=== PATIENT | female | born 1935 | race Caucasian/White ===

== ENCOUNTER 2017-01-27 12:08 | Inpatient (IN) | payer OTHER ==
[2017-01-27] MEDS ORDERED: LABETALOL HCL 5 MG/1 ML (100MG/20 ML VIAL) IVPUSH ONE ×2 (12:47→13:47)
[2017-01-27] MEDS ORDERED: LABETALOL HCL 5 MG/1 ML (100MG/20 ML VIAL) ONE (13:01)
--- NOTE | 2017-01-27 13:06 | PDOC ---
History of Present Illness - General Chief Complaint: Hives Stated Complaint: HIVES ON UPPER BODY X 1 WEEK Time Seen by Provider: 01/27/17 12:18 - History of Present Illness Initial Comments: 01/27/17 13:01 81-year-old female with a past medical history of an aortic valve replacement and mitral valve replacement, bovine, hyperlipidemia, hypertension, and COPD She also has a history of atrial fibrillation, and her amiodarone was recently stopped Patient is complaining of one-week of intermittent hives and itchiness of her upper body She states that none of her medications are new, however she saw Dr. Argueta last week, and her blood pressure was high, and her enalapril dose was increased a week ago She denies any new products She is using a new laundry detergent She went to Dr. Argueta's office today for a blood pressure recheck, and to talk to him further about these hives, when she was noted to have a very high blood pressure and sent to the emergency department She states that she did take her increase dose of enalapril today, and has been taking it as directed She denies any headache, chest pain, palpitations, or edema She does not have a blood pressure cuff at home to follow her blood pressure at home She was asymptomatic, and otherwise unaware that her blood pressure was very high She denies any other complaints at this time, and the remainder of the review of systems is negative Past History - Past Medical History Allergies/Adverse Reactions: Allergies Allergy/AdvReac Type Severity Reaction Status Date / Time nystatin Allergy Severe Swelling Verified 01/27/17 12:10 morphine AdvReac Severe Vomiting Verified 01/27/17 12:10 amiodarone AdvReac Intermediate Thyroid Verified 01/27/17 12:10 and eye problems amlodipine AdvReac Intermediate Leg edema Verified 01/27/17 12:10 Home Medications: Ambulatory Orders Albuterol Sulfate Inhaler - [Ventolin HFA Inhaler -] 1 - 2 inh PO ASDIR Cholecalciferol (Vitamin D3) [Vitamin D3] 2,000 unit PO ASDIR 03/30/16 Atorvastatin Ca [Lipitor] 40 mg PO HS 01/27/17 Budesonide/Formeterol Fumarate [SYMBICORT 160/4.5mcg -] 1 inh PO BID 01/27/17 Enalapril Maleate 10 mg PO DAILY tablet 01/27/17 Acetaminophen [Tylenol .Regular Strength -] 650 mg PO Q6H PRN #0 tablet Anemia: No Asthma: Yes Cancer: No Cardiac Disorders: Yes (AFIB) CVA: No COPD: Yes CHF: No (?) Dementia: No Diabetes: No GI Disorders: Yes (HX OF DIVERTICULITIS) Disorders: No HTN: Yes Hypercholesterolemia: Yes Liver Disease: No Seizures: No Thyroid Disease: Yes (HYPO) - Surgical History Abdominal Surgery: Yes Appendectomy: Yes Cardiac Surgery: Yes (2 VALVE REPLACEMENT) Cholecystectomy: No Lung Surgery: No Neurologic Surgery: No Orthopedic Surgery: Yes (RT ARTHROSCOPIC SURGERY) - Psycho/Social/Smoking Cessation Hx Anxiety: No Suicidal Ideation: No Smoking Status: No Smoking History: Former smoker Years of Tobacco Use: 0 Have you smoked in the past 12 months: No Number of Cigarettes Smoked Daily: 0 If you are a former smoker, when did you quit?: 1985 Information on smoking cessation initiated: No Hx Alcohol Use: No Drug/Substance Use Hx: No Substance Use Type: None Hx Substance Use Treatment: No *Physical Exam - Vital Signs Last Vital Signs Temp Pulse Resp BP Pulse Ox 98.3 F 57 L 18 211/80 97 01/27/17 12:09 01/27/17 12:09 01/27/17 12:01/27/17 12:09 01/27/17 12:09 - Physical Exam Comments: 01/27/17 13:04 Physical exam Last Vital Signs Temp Pulse Resp BP Pulse Ox 98.3 F 57 L 18 211/80 97 01/27/17 12:09 01/27/17 12:09 01/27/17 12:09 01/27/17 12:09 01/27/17 12:09 GENERAL: The patient is awake, alert, and fully oriented, and in no apparent distress. HEAD: Normal with no signs of trauma. EYES: sclera anicteric, conjunctiva are normal. ENT: oropharynx clear without exudates. Moist mucous membranes. NECK: Normal range of motion, supple LUNGS: Mildly prolonged expiratory phase, and occasional crackles No wheezes, and otherwise clear Trace bibasilar rales are noted HEART: Regular rate and rhythm, with prosthetic mitral and aortic valve murmurs ABDOMEN: Soft, nontender, normoactive bowel sounds. No guarding, no rebound. No masses appreciated. EXTREMITIES: Normal range of motion, no edema. No clubbing or cyanosis. No cords, erythema, or tenderness. NEUROLOGICAL: Cranial nerves II through XII grossly intact. Normal speech, motor 5 of 5 and equal in the upper lower extremities bilaterally, alert and oriented 3, grossly nonfocal neurologic exam PSYCH: Normal mood, normal affect. SKIN: Warm, Dry, no hives seen at this time ED Treatment Course - LABORATORY CBC & Chemistry Diagram: 01/28/17 07:35 01/28/17 07:35 - RADIOLOGY Radiology Studies Ordered: Category Date Time Status CHEST X-RAY PORTABLE* [RAD] Stat Radiology 01/27/17 12:46 Ordered Medical Decision Making - Medical Decision Making 01/27/17 13:10 EKG Sinus bradycardia 56, 0 axis Borderline first degree AV block Incomplete right bundle branch block QTC [address]-T waves When compared to the EKG of 05/12/16 The incomplete right bundle branch block was present on the prior EKG The borderline first degree AV block was also present on the old EKG Today's EKG is essentially unchanged from the prior EKG 81-year-old female whose blood pressure has been running high recently, and her enalapril was recently doubled by her primary care physician She's been having some transient hives off and on, with no new medications, and no new skin care products, although she states that she recently has changed her laundry detergent she actually came to see Dr. Shi today in the office to address the hives, but was found to have very high blood pressure and sent to the emergency department (no hives are present at this time) She denies any symptoms related to her high blood pressure at this time 01/27/17 14:34 Laboratory Results - last 24 hr 01/27/17 01/27/17 01/27/17 12:40 12:40 12:40 WBC 6.4 RBC 4.62 Hgb 13.1 Hct 39.9 MCV 86.3 MCHC 32.9 RDW 14.1 Plt Count 213 MPV 9.5 INR 2.96 H Sodium 140 Potassium 3.9 Chloride 104 Carbon Dioxide 27 Anion Gap 9 BUN 23 H Creatinine 1.3 Creat Clearance w eGFR 39.31 Random Glucose 82 Calcium 8.6 Magnesium 1.9 Total Bilirubin 0.6 AST 27 ALT 19 D Alkaline Phosphatase 145 H Total Protein 6.8 Albumin 3.9 01/27/17 14:34 Chest x-ray-no acute process seen, NO new change from prior 01/27/17 15:15 ck 89, trop 0.04 Vital Signs - 24 hr 01/27/17 01/27/17 01/27/17 12:09 13:00 13:12 Temperature 98.3 F Pulse Rate 57 L Pulse Rate [ 57 L 56 L Apical] Respiratory 18 16 18 Rate Blood Pressure 211/80 Blood Pressure 226/78 220/67 [Arm] O2 Sat by Pulse 97 97 98 Oximetry (%) 01/27/17 01/27/17 01/27/17 13:18 13:49 13:57 Temperature Pulse Rate Pulse Rate [ 57 L 58 L 57 L Apical] Respiratory 18 Rate Blood Pressure Blood Pressure 190/65 196/66 170/57 [Arm] O2 Sat by Pulse 97 Oximetry (%) 01/27/17 14:16 Temperature Pulse Rate Pulse Rate [ 57 L Apical] Respiratory 18 Rate Blood Pressure Blood Pressure 154/58 [Arm] O2 Sat by Pulse Oximetry (%) 01/27/17 15:32 Case and all results discussed with hospitalist-Will place in observation BNP still pending at the time of this admission-was sent to lab at [facility] Impression-hypertension out of control,hives of uncertain etiology BP decreasing with meds given in ED *DC/Admit/Observation/Transfer Diagnosis at time of Disposition: Poorly-controlled hypertension - Discharge Dispostion Condition at time of disposition: Fair Admit: Yes
[2017-01-27 13:27] LABS: MCH 28.4 pg (25.7-33.7); MCHC 32.9 g/dl (32.0-36.0); MEAN CELL VOLUME 86.3 fl (80-96); MEAN PLT VOLUME 9.5 fl (7.5-11.1); PLATELET COUNT 213 K/MM3 (134-434); RDW 14.1 % (11.6-15.6); WHITE BLOOD COUNT 6.4 K/mm3 (4.0-10.8)
[2017-01-27 14:18] LABS: ALBUMIN 3.9 g/dl (3.5-5.0); ALK PHOS 145 U/L (32-92); ANION GAP 9 (8-16); BILIRUBIN,TOTAL 0.6 mg/dl (0.2-1.0); CALCIUM 8.6 mg/dl (8.4-10.2); CO2 27 mmol/L (22-28); CREATININE 1.3 mg/dl (0.6-1.3); GLUCOSE,RANDOM 82 mg/dl (74-106); MAGNESIUM 1.9 mg/dL (1.8-2.4); SGOT/AST 27 U/L (10-42); SGPT/ALT 19 U/L (10-40); TOT PROT 6.8 g/dl (6.4-8.3)
[2017-01-27 14:25] LABS: INR 2.96 (0.82-1.09); PROTHROMBIN TIME (PATIENT) 32.4 SEC (10.2-13.0)
[2017-01-27 14:55] LABS: TROPONIN I (DFP) 0.04 ng/ml (0.03-0.50)
--- NOTE | 2017-01-27 15:08 | EKG ---
Test Reason : Blood Pressure : / mmHG Vent. Rate : 056 BPM Atrial Rate : 056 BPM P-R Int : 200 ms QRS Dur : 124 ms QT Int : 506 ms P-R-T Axes : 048 001 033 degrees QTc Int : 488 ms SINUS BRADYCARDIA RSR' OR QR PATTERN IN V1 SUGGESTS RIGHT VENTRICULAR CONDUCTION DELAY WHEN COMPARED WITH ECG OF 12-MAY-2016 09:06, PREMATURE ATRIAL COMPLEXES ARE NO LONGER PRESENT Confirmed by MD FIOR, SHARIF ([id number]) on 01/27/2017 3:07:41 PM Referred By: ELIZABETH ADAMS Confirmed By:SHARIF CHILDRESS MD
[2017-01-27] MEDS ORDERED: hydrALAZINE HCL 20 MG/ML VIAL IVPUSH ONE ×2 (17:50→22:11)
[2017-01-27] MEDS ORDERED: ONDANSETRON 4 MG/2 ML VIAL IVPB PRN (17:54)
[2017-01-27] MEDS ORDERED: ACETAMINOPHEN 325 MG TABLET (FP) PO PRN (17:54)
[2017-01-27] MEDS ORDERED: ALBUTEROL SO4 6.7 GM HFA INHALER IH PRN (18:19)
[2017-01-27 19:15] VITALS: BMI 12.4
[2017-01-27] MEDS: ENALAPRIL MALEATE 10 MG TABLET (FP) PO SCH (20:18)
--- NOTE | 2017-01-27 20:32 | HP ---
CHIEF COMPLAINT: PCP: HISTORY OF PRESENT ILLNESS: This is a 81 y/o female with a past medical history of Afib (on Coumadin), Aortic Valve Replacement and Mitral Valve Replacement (Bovine x2), HTN, HLD, Hypothyroid, Asthma, COPD, Diverticulitis. Who presents to the ED from her PMD' s office with elevated blood pressure. Patient reports seeing her PMD for hives to her upper body, there are blood pressure was noted to be elevated. She states that she had a recent change to her blood pressure regimen, but is compliant. Patient denies blurred vision, dizziness, SOB, CP. Patient denies, fever, chills, N/V/D, constipation. ER course was notable for: (1) On arrival BP 214/77- hydralazine given in ED- BP 130/50 (2) EKG- SB first degree block, incomplete RBBB (3) Chest Xray- neg acute pathology Recent Travel: None PAST MEDICAL HISTORY: See HPI PAST SURGICAL HISTORY: Bovine Valve Replacement x2 Appendectomy Abdominal sx Rt- Shoulder Arthroscopic Social History: Smoking: Former Alcohol: None Drugs: None Lives alone Family History: Allergies nystatin Allergy (Severe, Verified 01/27/17 12:10) Swelling morphine Adverse Reaction (Severe, Verified 01/27/17 12:10) Vomiting amiodarone Adverse Reaction (Intermediate, Verified 01/27/17 12:10) Thyroid and eye problems amlodipine Adverse Reaction (Intermediate, Verified 01/27/17 12:10) Leg edema HOME MEDICATIONS: Home Medications Medication Instructions Recorded Albuterol Sulfate Inhaler - 1 - 2 inh PO ASDIR 03/30/16 [Ventolin HFA Inhaler -] Cholecalciferol (Vitamin D3) 2,000 unit PO ASDIR 03/30/16 [Vitamin D3] Atorvastatin Ca [Lipitor] 40 mg PO HS 01/27/17 Budesonide/Formeterol Fumarate 1 inh PO BID 01/27/17 [SYMBICORT 160/4.5mcg -] Enalapril Maleate 10 mg PO DAILY tablet 01/27/17 REVIEW OF SYSTEMS CONSTITUTIONAL: Absent: fever, chills, diaphoresis, generalized weakness, malaise, loss of appetite, weight change HEENT: Absent: rhinorrhea, nasal congestion, throat pain, throat swelling, difficulty swallowing, mouth swelling, ear pain, eye pain, visual changes CARDIOVASCULAR: Absent: chest pain, syncope, palpitations, irregular heart rate, lightheadedness , peripheral edema RESPIRATORY: Absent: cough, shortness of breath, dyspnea with exertion, orthopnea, wheezing, stridor, hemoptysis GASTROINTESTINAL: Absent: abdominal pain, abdominal distension, nausea, vomiting, diarrhea, constipation, melena, hematochezia GENITOURINARY: Absent: dysuria, frequency, urgency, hesitancy, hematuria, flank pain, genital pain MUSCULOSKELETAL: Absent: myalgia, arthralgia, joint swelling, back pain, neck pain SKIN: hives, itching Absent: rash, pallor HEMATOLOGIC/IMMUNOLOGIC: Absent: easy bleeding, easy bruising, lymphadenopathy, frequent infections ENDOCRINE: Absent: unexplained weight gain, unexplained weight loss, heat intolerance, cold intolerance NEUROLOGIC: headache Absent: focal weakness or paresthesias, dizziness, unsteady gait, seizure, mental status changes, bladder or bowel incontinence PSYCHIATRIC: Absent: anxiety, depression, suicidal or homicidal ideation, hallucinations. PHYSICAL EXAMINATION Vital Signs - 24 hr 01/27/17 01/27/17 01/27/17 18:00 19:05 19:27 Temperature 98.1 F Pulse Rate 56 L 59 L 58 L Respiratory 16 18 16 Rate Blood Pressure 214/77 130/50 130/55 O2 Sat by Pulse 97 96 Oximetry (%) 01/27/17 20:12 Temperature Pulse Rate Respiratory 16 Rate Blood Pressure O2 Sat by Pulse 96 Oximetry (%) GENERAL: Awake, alert, and fully oriented, in no acute distress. HEAD: Normal with no signs of trauma. EYES: Pupils equal, round and reactive to light, extraocular movements intact, sclera anicteric, conjunctiva clear. No lid lag. EARS, NOSE, THROAT: Ears normal, nares patent, oropharynx clear without exudates. Moist mucous membranes. NECK: Normal range of motion, supple without lymphadenopathy, JVD, or masses. LUNGS: Breath sounds equal, clear to auscultation bilaterally. No wheezes, and no crackles. No accessory muscle use. HEART: Irregular rate and rhythm, 2/6 systolic murmur. Normal S1 and S2, rub or gallop. ABDOMEN: Soft, nontender, not distended, normoactive bowel sounds, no guarding, no rebound, no masses. No hepatomegaly or splenomegaly. MUSCULOSKELETAL: Normal range of motion at all joints. No bony deformities or tenderness. No CVA tenderness. UPPER EXTREMITIES: 2+ pulses, warm, well-perfused. No cyanosis. No clubbing. No peripheral edema. LOWER EXTREMITIES: 2+ pulses, warm, well-perfused. No calf tenderness. No peripheral edema. NEUROLOGICAL: Cranial nerves II-XII intact. Normal speech. Gait not observed. PSYCHIATRIC: Cooperative. Good eye contact. Appropriate mood and affect. SKIN: Warm, dry, normal turgor, no rashes or lesions noted, normal capillary refill. Laboratory Results - last 24 hr 01/27/17 01/27/17 01/27/17 12:40 12:40 12:40 WBC 6.4 RBC 4.62 Hgb 13.1 Hct 39.9 MCV 86.3 MCHC 32.9 RDW 14.1 Plt Count 213 MPV 9.5 INR Sodium 140 Potassium 3.9 Chloride 104 Carbon Dioxide 27 Anion Gap 9 BUN 23 H Creatinine 1.3 Creat Clearance w eGFR 39.31 Random Glucose 82 Calcium 8.6 Magnesium 1.9 Total Bilirubin 0.6 AST 27 ALT 19 D Alkaline Phosphatase 145 H Creatine Kinase 89 Troponin I 0.04 B-Natriuretic Peptide 1609.19 H Total Protein 6.8 Albumin 3.9 01/27/17 12:40 WBC RBC Hgb Hct MCV MCHC RDW Plt Count MPV INR 2.96 H Sodium Potassium Chloride Carbon Dioxide Anion Gap BUN Creatinine Creat Clearance w eGFR Random Glucose Calcium Magnesium Total Bilirubin AST ALT Alkaline Phosphatase Creatine Kinase Troponin I B-Natriuretic Peptide Total Protein Albumin ASSESSMENT/PLAN: This is a 81 y/o female with a PMHx of: HTN, HLD, Afib (on Coumadin), Asthma, COPD, Diverticulitis. Placed on Tele Observation for Hypertensive Urgency for further evaluation of their emergent condition. 1. Hypertensive Urgency- Tele monitoring, BP mgmt, Serial Enzymes, Cardiology Consult, Renal US 2. HTN- Monitor BP continue home meds 3. Afib- Tele monitoring, EKG reviewed, Continue med, 4. Asthma/COPD- Duoneb prn, continue home med, CXR reviewed FEN - PO Fluids - Replete lytes prn - Low Na Diet Problem List - Problem (1) Hypertensive urgency Assessment/Plan: - Tele monitoring - Patient is currently asymptomatic- denies DOZIER, CP, blurred vision - Labetolol, Hydralazine given in ED - Appreciate Cardiology consult - Continue Enalapril - Hydralazine prn - Ekg- Afib rate control - Chest Xray- neg acute pathology - Serial Enzymes neg x1, continue to trend - Renal US Code(s): I16.0 - HYPERTENSIVE URGENCY (2) A-fib Assessment/Plan: - Rate Control - EKG- reviewed - Continue Coumadin - Series INR Code(s): I48.91 - UNSPECIFIED ATRIAL FIBRILLATION (3) Asthma Assessment/Plan: - Controlled - Continue home meds - Duoneb prn SOB Code(s): J45.909 - UNSPECIFIED ASTHMA, UNCOMPLICATED (4) COPD (chronic obstructive pulmonary disease) Assessment/Plan: - Continue home med - O2 - Pulse Ox Code(s): J44.9 - CHRONIC OBSTRUCTIVE PULMONARY DISEASE, UNSPECIFIED (5) HLD (hyperlipidemia) Assessment/Plan: - Continue home med Code(s): E78.5 - HYPERLIPIDEMIA, UNSPECIFIED (6) Hypothyroidism Code(s): E03.9 - HYPOTHYROIDISM, UNSPECIFIED (7) DVT prophylaxis Code(s): FZT9268 - Visit type - Emergency Visit Emergency Visit: Yes ED Registration Date: 01/27/17 Care time: The patient presented to the Emergency Department on the above date and was hospitalized for further evaluation of their emergent condition. - New Patient This patient is new to me today: Yes Date on this admission: 01/27/17 - Critical Care Critical Care patient: No
[2017-01-27] MEDS: BUDESONIDE/FORMETEROL FUMARATE 160/4.5 mcg INHALER IH SCH ×2 (22:22→23:05)
[2017-01-27] MEDS: ATORVASTATIN CA 40 MG TABLET (FP) PO SCH (22:22)
[2017-01-27] MEDS ORDERED: WARFARIN NA 1 MG TABLET (FP) PO ONE (22:30)
[2017-01-27] MEDS ORDERED: ONDANSETRON 4 MG/2 ML VIAL IVPUSH ONE (22:58)
[2017-01-27] MEDS ORDERED: diphenhydrAMINE HCL 25 MG CAPSULE (FP) PO ONE (22:58)
[2017-01-28] MEDS: LEVOTHYROXINE NA 50 MCG TABLET (FP) PO SCH (06:21)
[2017-01-28 08:23] LABS: BASOPHIL 0.9 % (0-2.0); EOSINOPHIL 0.2 % (0-4.5); MCH 28.4 pg (25.7-33.7); MCHC 32.8 g/dl (32.0-36.0); MEAN CELL VOLUME 86.5 fl (80-96); MEAN PLT VOLUME 9.1 fl (7.5-11.1); PLATELET COUNT 224 K/MM3 (134-434); RDW 14.3 % (11.6-15.6); WHITE BLOOD COUNT 8.6 K/mm3 (4.0-10.8)
[2017-01-28 08:48] LABS: ALBUMIN 3.6 g/dl (3.5-5.0); ALK PHOS 132 U/L (32-92); ANION GAP 9 (8-16); BILIRUBIN,TOTAL 0.5 mg/dl (0.2-1.0); CALCIUM 8.7 mg/dl (8.4-10.2); CO2 24 mmol/L (22-28); CREATININE 1.4 mg/dl (0.6-1.3); GLUCOSE,RANDOM 106 mg/dl (74-106); MAGNESIUM 1.9 mg/dL (1.8-2.4); SGOT/AST 22 U/L (10-42); SGPT/ALT 18 U/L (10-40); TOT PROT 6.4 g/dl (6.4-8.3)
[2017-01-28 08:57] LABS: CHOLESTEROL 161 mg/dl
--- NOTE | 2017-01-28 09:23 | CON.CARD ---
Consult Consult Specialty:: Cardiology Referred by:: Obey Shi MD Reason for Consultation:: Hypertensive urgency - History of Present Illness Chief Complaint: Rash History of Present Illness: This is a 81 y/o female with a past medical history of Afib (on Coumadin), Aortic Valve Replacement and Mitral Valve Replacement (Bovine x2), HTN, HLD, Hypothyroid, Asthma, COPD, Diverticulitis referred to the ED from her PMD's office with elevated blood pressure. Patient reports seeing her PMD for hives to her upper body, there are blood pressure was noted to be elevated. She reports medication, but not diet compliant, denies NSAID use. Patient denies blurred vision, dizziness, SOB, CP, near or true syncope, orthopnea, PND, LE edema or change in exercise capacity. ER course was notable for: (1) On arrival BP 214/77- hydralazine given in ED- BP 130/50 (2) EKG- SB first degree block, incomplete RBBB (3) Chest Xray- neg acute pathology PAST MEDICAL HISTORY: See HPI PAST SURGICAL HISTORY: Bovine Valve Replacement x2 Appendectomy Abdominal sx Rt- Shoulder Arthroscopic Social History: Smoking: Former Alcohol: None Drugs: None Lives alone Family History: Allergies nystatin Allergy (Severe, Verified 01/27/17 12:10) Swelling morphine Adverse Reaction (Severe, Verified 01/27/17 12:10) Vomiting amiodarone Adverse Reaction (Intermediate, Verified 01/27/17 12:10) Thyroid and eye problems amlodipine Adverse Reaction (Intermediate, Verified 01/27/17 12:10) Leg edema - History Source History Provided By: Patient Limitations to Obtaining History: No Limitations - Past Medical History Cardio/Vascular: Yes: AFIB, HTN, Hyperlipdemia Pulmonary: Yes: COPD Gastrointestinal: Yes: Diverticulitis Endocrine: Yes: Hypothyroidism - Past Surgical History Past Surgical History: Yes: Appendectomy, Valve Replacement - Alcohol/Substance Use Hx Alcohol Use: No - Smoking History Smoking history: Former smoker Have you smoked in the past 12 months: No Aproximately how many cigarettes per day: 0 If you are a former smoker, when did you quit?: 1985 Home Medications - Allergies Allergies/Adverse Reactions: Allergies Allergy/AdvReac Type Severity Reaction Status Date / Time nystatin Allergy Severe Swelling Verified 01/27/17 12:10 morphine AdvReac Severe Vomiting Verified 01/27/17 12:10 amiodarone AdvReac Intermediate Thyroid Verified 01/27/17 12:10 and eye problems amlodipine AdvReac Intermediate Leg edema Verified 01/27/17 12:10 - Home Medications Home Medications: Ambulatory Orders Albuterol Sulfate Inhaler - [Ventolin HFA Inhaler -] 1 - 2 inh PO ASDIR Cholecalciferol (Vitamin D3) [Vitamin D3] 2,000 unit PO ASDIR 03/30/16 Atorvastatin Ca [Lipitor] 40 mg PO HS 01/27/17 Budesonide/Formeterol Fumarate [SYMBICORT 160/4.5mcg -] 1 inh PO BID 01/27/17 Enalapril Maleate 10 mg PO DAILY tablet 01/27/17 Review of Systems - Review of Systems Integumentary: reports: Rash Vital Signs: Vital Signs Temperature 99.2 F 01/28/17 06:17 Pulse Rate 63 01/28/17 08:03 Respiratory Rate 18 01/28/17 08:03 Blood Pressure 136/46 01/28/17 08:03 O2 Sat by Pulse Oximetry (%) 93 L 01/28/17 06:17 Constitutional: Yes: No Distress, Calm Neck: Yes: Supple Respiratory: Yes: Regular, CTA Bilaterally Gastrointestinal: Yes: Normal Bowel Sounds, Soft Cardiovascular: Yes: Regular Rate and Rhythm JVD: No Carotid Bruit: No Heart Sounds: Yes: S1, S2 Murmur: Yes: Systolic Murmur, Grade 2 Edema: No - Other Data Labs, Other Data: CBC, BMP 01/28/17 07:35 01/28/17 07:35 INR, PTT INR 2.96 (0.82-1.09) H 01/27/17 12:40 SB @ 56 1st degree AV block similar to previous 05/12/2016 Imaging - Results Chest X-ray: Report Reviewed (NAD) Assessment/Plan 11/2016 Echo: Normal LV size and fxn with severe LVH, mod LAE, bioAVR and MVR noted, mod TR, mild-mod IN, RVSP 45 mmHg 1. Hypertensive urgency improved 2. Rheumatic heart disease s/p bioAVR, bioMVR 3. Paroxysmal Afib on coumadin with therapeutic INR 4. Mild COPD 5. Hypothyroidism 6. CKD P:1. Resume Toprol XL 25 qd as you are, continue vasotec 10 qd, Lipitor 40 qhs 2. Continue coumadin per INR 3. If BP remains adequately controlled, may d/c home with f/u with Drs. Myrick and Yuridia 4. Thank you for consultative opportunity
[2017-01-28] MEDS ORDERED: PT OWN MED DRAWER 7, Y5N ONE (09:52)
[2017-01-28] MEDS: ENALAPRIL MALEATE 10 MG TABLET (FP) PO SCH ×2 (09:58→22:10)
[2017-01-28] MEDS: BUDESONIDE/FORMETEROL FUMARATE 160/4.5 mcg INHALER IH SCH ×3 (10:00→21:13)
[2017-01-28] MEDS ORDERED: METOPROLOL SUCCINATE 25 MG TAB.SR.24H (FP) PO SCH (10:00)
--- NOTE | 2017-01-28 11:10 | DS ---
Physical Exam: SUBJECTIVE: Patient seen and examined, pt reports feeling well, pt is denies any chest pain OBJECTIVE: Vital Signs Period Temp Pulse Resp BP Sys/Vasquez Pulse Ox Last 24 Hr 97.9 F-99.2 F 56-70 16-19 115-214/38-87 93-97 PHYSICAL EXAM GENERAL: The patient is awake, alert, and fully oriented, in no acute distress. HEAD: Normal with no signs of trauma. EYES: PERRL, extraocular movements intact, sclera anicteric, conjunctiva clear. ENT: Ears normal, nares patent, oropharynx clear without exudates, moist mucous membranes. NECK: Trachea midline, full range of motion, supple. LUNGS: Breath sounds equal, clear to auscultation bilaterally, no wheezes, no crackles, no accessory muscle use. HEART: Regular rate and rhythm, S1, S2 without murmur, rub or gallop. ABDOMEN: Soft, nontender, nondistended, normoactive bowel sounds, no guarding, no rebound, no hepatosplenomegaly, no masses. EXTREMITIES: 2+ pulses, warm, well-perfused, no edema. NEUROLOGICAL: Cranial nerves II through XII grossly intact. Normal speech, gait not observed. PSYCH: Normal mood, normal affect. SKIN: Warm, dry, normal turgor, no rashes or lesions noted. LABS Laboratory Results - last 24 hr 01/28/17 01/28/17 01/28/17 07:35 07:35 07:35 WBC 8.6 D RBC 4.62 Hgb 13.1 Hct 40.0 MCV 86.5 MCHC 32.8 RDW 14.3 Plt Count 224 MPV 9.1 Neutrophils % 84.0 H Lymphocytes % 8.5 D Monocytes % 6.4 Eosinophils % 0.2 D Basophils % 0.9 Sodium 138 Potassium 4.4 Chloride 105 Carbon Dioxide 24 Anion Gap 9 BUN 25 H Creatinine 1.4 H Creat Clearance w eGFR 36.09 Random Glucose 106 D Calcium 8.7 Magnesium 1.9 Total Bilirubin 0.5 AST 22 ALT 18 Alkaline Phosphatase 132 H Creatine Kinase Total Protein 6.4 Albumin 3.6 Triglycerides 90 Cholesterol 161 Total LDL Cholesterol 93 HDL Cholesterol 50 01/28/17 07:35 WBC RBC Hgb Hct MCV MCHC RDW Plt Count MPV Neutrophils % Lymphocytes % Monocytes % Eosinophils % Basophils % Sodium Potassium Chloride Carbon Dioxide Anion Gap BUN Creatinine Creat Clearance w eGFR Random Glucose Calcium Magnesium Total Bilirubin AST ALT Alkaline Phosphatase Creatine Kinase 62 Total Protein Albumin Triglycerides Cholesterol Total LDL Cholesterol HDL Cholesterol HOSPITAL COURSE: Date of Admission:01/27/17 Date of Discharge: 01/28/17 Minutes to complete discharge: 45 Discharge Summary Reason For Visit: HYPERTENSION Current Active Problems A-fib (Acute) Asthma (Acute) COPD (chronic obstructive pulmonary disease) (Acute) DVT prophylaxis (Acute) HLD (hyperlipidemia) (Acute) Hypertensive urgency (Acute) Hypothyroidism (Acute) Poorly-controlled hypertension (Acute) Condition: Fair - Home Medications Comprehensive Discharge Medication List: Ambulatory Orders Albuterol Sulfate Inhaler - [Ventolin HFA Inhaler -] 1 - 2 inh PO ASDIR Cholecalciferol (Vitamin D3) [Vitamin D3] 2,000 unit PO ASDIR 03/30/16 Atorvastatin Ca [Lipitor] 40 mg PO HS 01/27/17 Budesonide/Formeterol Fumarate [SYMBICORT 160/4.5mcg -] 1 inh PO BID 01/27/17 Enalapril Maleate 10 mg PO DAILY tablet 01/27/17
[2017-01-28 11:44] LABS: TROPONIN I (DFP) 0.44 ng/ml (0.03-0.50)
[2017-01-28 14:21] LABS: TROPONIN I (DFP) 0.9 ng/ml (0.03-0.50)
--- NOTE | 2017-01-28 14:32 | PN ---
[id number], denies any dyspnea upon exertion. OBJECTIVE: patient is a 81 y/o female with a past medical history of Afib (on Coumadin), Aortic Valve Replacement and Mitral Valve Replacement (Bovine x2), HTN, HLD, Hypothyroid, Asthma, COPD, Diverticulitis. patient was admitted from the emergency department to observation for elevated blood pressure. Vital Signs Period Temp Pulse Resp BP Sys/Vasquez Pulse Ox Last 24 Hr 97.9 F-99.2 F 56-70 16-19 115-214/38-87 93-97 GENERAL: The patient is awake, alert, and fully oriented, in no acute distress. HEAD: Normal with no signs of trauma. EYES: PERRL, extraocular movements intact, sclera anicteric, conjunctiva clear. No ptosis. ENT: Ears normal, nares patent, oropharynx clear without exudates, moist mucous membranes. NECK: Trachea midline, full range of motion, supple. LUNGS: Breath sounds equal, clear to auscultation bilaterally, no wheezes, no crackles, no accessory muscle use. HEART:regular rate and rhythm, S1, S2, 2/6 systolic murmur, no rub or gallop. ABDOMEN: Soft, nontender, nondistended, normoactive bowel sounds, no guarding, no rebound, no hepatosplenomegaly, no masses. EXTREMITIES: 2+ pulses, warm, well-perfused, no edema. NEUROLOGICAL: Cranial nerves II through XII grossly intact. Normal speech, gait not observed. PSYCH: Normal mood, normal affect. SKIN: Warm, dry, normal turgor, no rashes or lesions noted Laboratory Results - last 24 hr 01/28/17 01/28/17 01/28/17 07:35 07:35 07:35 WBC 8.6 D RBC 4.62 Hgb 13.1 Hct 40.0 MCV 86.5 MCHC 32.8 RDW 14.3 Plt Count 224 MPV 9.1 Neutrophils % 84.0 H Lymphocytes % 8.5 D Monocytes % 6.4 Eosinophils % 0.2 D Basophils % 0.9 Sodium 138 Potassium 4.4 Chloride 105 Carbon Dioxide 24 Anion Gap 9 BUN 25 H Creatinine 1.4 H Creat Clearance w eGFR 36.09 Random Glucose 106 D Calcium 8.7 Magnesium 1.9 Total Bilirubin 0.5 AST 22 ALT 18 Alkaline Phosphatase 132 H Creatine Kinase Troponin I Total Protein 6.4 Albumin 3.6 Triglycerides 90 Cholesterol 161 Total LDL Cholesterol 93 HDL Cholesterol 50 01/28/17 01/28/17 07:35 12:10 WBC RBC Hgb Hct MCV MCHC RDW Plt Count MPV Neutrophils % Lymphocytes % Monocytes % Eosinophils % Basophils % Sodium Potassium Chloride Carbon Dioxide Anion Gap BUN Creatinine Creat Clearance w eGFR Random Glucose Calcium Magnesium Total Bilirubin AST ALT Alkaline Phosphatase Creatine Kinase 62 71 Troponin I 0.44 0.90 H* Total Protein Albumin Triglycerides Cholesterol Total LDL Cholesterol HDL Cholesterol Active Medications Generic Name Dose Route Start Last Admin Trade Name Freq PRN Reason Stop Dose Admin Acetaminophen 650 mg 01/27/17 17:54 Tylenol - PO Q6H PRN FEVER OR PAIN Albuterol Sulfate 2 puff 01/27/17 18:19 Ventolin Hfa Inhaler - IH Q6H PRN SHORTNESS OF BREATH Atorvastatin Calcium 40 mg 01/27/17 22:00 01/27/17 22:22 Lipitor - PO 40 mg HS KATHRYN Administration Budesonide/Formoterol Fumarate 1 puff 01/27/17 22:00 01/28/17 10:01 Symbicort 160/4.5mcg - IH 1 puff BID KATHRYN Administration Enalapril Maleate 10 mg 01/27/17 18:00 01/28/17 09:58 Vasotec - PO 10 mg DAILY KATHRYN Administration Levothyroxine Sodium 50 mcg 01/28/17 07:00 01/28/17 06:21 Synthroid - PO 50 mcg ACBK KATHRYN Administration Metoprolol Succinate 25 mg 01/28/17 10:00 01/28/17 09:58 Toprol Xl - PO 25 mg DAILY KATHRYN Administration Ondansetron HCl 4 mg 01/27/17 17:54 Zofran Injection IVPB Q6H PRN NAUSEA Warfarin Sodium 1 mg 01/28/17 18:00 Coumadin - PO 01/28/17 18:01 ONCE ONE Warfarin Sodium 2 mg 01/29/17 18:00 Coumadin - PO 01/29/17 18:01 ONCE ONE Warfarin Sodium 1 mg 01/30/17 18:00 Coumadin - PO 01/30/17 18:01 ONCE ONE ASSESSMENT/PLAN: 1) cardiac hypertensive urgency - continue enalapril, toprol, b/p at goal elevated troponin - pt denies any chest pain, likely secondary to ischemic demand - third troponin 0.90, repeat ekg NSR RBBB, unchanged from prior ekg - case discussed with Dr Lind advised serial troponin until level plateaus afib - currently in nsr, pt on coumadiin, thereupetic - continuous cardiac monitoring 2) pulm emphysema - no acute excerbation at this time, continue symbicort, spiriva and duonebs prn 3) endo hypothyroidism - tsh wnl, continue levothyroxine f/e/n - low sodium diet ppx - coumadin - oob dispo: requires tele obsv Visit type - Emergency Visit Emergency Visit: Yes ED Registration Date: 01/27/17 Care time: The patient presented to the Emergency Department on the above date and was hospitalized for further evaluation of their emergent condition. - New Patient This patient is new to me today: Yes Date on this admission: 01/28/17 - Critical Care Critical Care patient: Yes Total Critical Care Time (in minutes): 45 Critical Care Statement: The care of this patient involved high complexity decision making to prevent further life threatening deterioration of the patient 's condition and/or to evalute & treat vital organ system(s) failure or risk of failure. - Discharge Referral Referred to [facility] Med [facility] Yes Physician Referral: Obey Shi MD (Int Med)
[2017-01-28] MEDS ORDERED: hydrALAZINE HCL 20 MG/ML VIAL IVPUSH ONE ×2 (15:10→18:36)
[2017-01-28] MEDS ORDERED: WARFARIN NA 1 MG TABLET (FP) PO ONE (18:00)
[2017-01-28] MEDS ORDERED: WARFARIN NA 1 MG TABLET (FP) PO SCH (18:00)
[2017-01-28] MEDS ORDERED: hydrALAZINE HCL 20 MG/ML VIAL ONE (18:38)
[2017-01-28 18:59] LABS: TROPONIN I (DFP) 0.65 ng/ml (0.03-0.50)
--- NOTE | 2017-01-28 19:17 | ED.PROV ---
Physicial Exam I saw and examined the patient. - Vital Signs Last Vital Signs Temp Pulse Resp BP Pulse Ox 98.7 F 68 20 206/67 93 L 01/28/17 14:55 01/28/17 18:34 01/28/17 18:34 01/28/17 18:34 01/28/17 14:55 - Physical Exam Reason for Response: 01/28/17 19:14 called to see this pt for evaluation of nausea and elevated BP Pt was admitted for Hypertensive urgency Trop (+) seen by cardiology Plan for BP control Pt became nauseaous and had BP 200s Call placed to hospitalist she was ordered for Hydralazine, repeat EKG (same), Labs pending Cardiology was contacted Being closely monitored
[2017-01-28] MEDS ORDERED: NITROPRUSSIDE SODIUM 50,000 MCG in SODIUM CHLORIDE 248 ML IVPB SCH (20:15)
--- NOTE | 2017-01-28 20:47 | HOSP ---
Subjective - Review of Symptoms Events since last encounter: Hospitalist Encounter Notified by telephone by primary RN, that the patient's BP still remains elevated- R arm 183/54, L arm 208/64, P 66. The nurse reports the patient is still feeling nauseous and has a headache. Orders placed for Stat EKG, Transfer to [facility], RN to inform humid system operator of current events, Nitro Drip for BP control Arrived to bedside, patient is AAOx3, appears anxious, reports still feeling nauseous, with a frontal DOZIER. Patient denies chest pain or SOB. Patient's son was at bedside, aware of pending transfer. Vitals taken by RN- BP improved, Nitro Drip will be held for now with BP parameters, RN is aware. Reviewed EKG no change compared to prior study, patient awaiting transfer to [facility] HEENT: Yes: Head Aches Gastrointestinal: Yes: Nausea Physical Examination Vital Signs: Vital Signs Temperature 98.7 F 01/28/17 14:55 Pulse Rate 65 01/28/17 20:00 Respiratory Rate 20 01/28/17 18:34 Blood Pressure 174/53 01/28/17 20:00 O2 Sat by Pulse Oximetry (%) 93 L 01/28/17 14:55 Constitutional: Yes: Well Nourished, No Distress, Anxious HENT: Yes: WNL, Atraumatic, Normocephalic Neck: Yes: WNL, Supple, Trachea Midline Cardiovascular: Yes: Pulse Irregular, S1, S2 Respiratory: Yes: WNL, Regular, CTA Bilaterally, On Nasal O2 Gastrointestinal: Yes: WNL, Normal Bowel Sounds, Soft Peripheral Pulses WNL: Yes Integumentary: Yes: WNL Neurological: Yes: WNL, Alert, Oriented, Cran Nerves II-XII Intact ...Motor Strength: WNL Psychiatric: Yes: WNL, Alert, Oriented Labs: CBC, BMP 01/28/17 07:35 01/28/17 07:35 Troponin, BNP 01/27/17 01/28/17 01/28/17 12:40 07:35 12:10 Troponin I 0.44 0.90 H* B-Natriuretic Peptide 1609.19 H 01/28/17 18:12 Troponin I 0.65 H* B-Natriuretic Peptide Current Medications Generic Name Dose Route Start Last Admin Trade Name Freq PRN Reason Stop Dose Admin Acetaminophen 650 mg 01/27/17 17:54 Tylenol - PO Q6H PRN FEVER OR PAIN Albuterol Sulfate 2 puff 01/27/17 18:19 Ventolin Hfa Inhaler - IH Q6H PRN SHORTNESS OF BREATH Atorvastatin Calcium 40 mg 01/27/17 22:00 01/27/17 22:22 Lipitor - PO 40 mg HS KATHRYN Administration Budesonide/Formoterol Fumarate 1 puff 01/27/17 22:00 01/28/17 10:01 Symbicort 160/4.5mcg - IH 1 puff BID KATHRYN Administration Carvedilol 25 mg 01/28/17 22:00 Coreg - PO BID KATHRYN Enalapril Maleate 10 mg 01/28/17 22:00 Vasotec - PO BID KATHRYN Sodium Nitroprusside 50,000 250 mls @ 9.86 mls/hr 01/28/17 20:15 mcg/ Sodium Chloride IVPB TITR KATHRYN Protocol 0.5 MCG/KG/MIN Levothyroxine Sodium 50 mcg 01/28/17 07:00 01/28/17 06:21 Synthroid - PO 50 mcg ACBK KATHRYN Administration Ondansetron HCl 4 mg 01/27/17 17:54 Zofran Injection IVPB Q6H PRN NAUSEA Warfarin Sodium 2 mg 01/29/17 18:00 Coumadin - PO 01/29/17 18:01 ONCE ONE Warfarin Sodium 1 mg 01/30/17 18:00 Coumadin - PO 01/30/17 18:01 ONCE ONE Intake & Output 01/25/17 01/26/17 01/27/17 01/28/17 23:59 23:59 23:59 23:59 Intake Total 400 750 Balance 400 750 Weight 65.741 kg Critical Care Total Critical Care Time (in minutes): 35 Critical Care Statement: The care of this patient involved high complexity decision making to prevent further life threatening deterioration of the patient 's condition and/or to evalute & treat vital organ system(s) failure or risk of failure.
[2017-01-28] MEDS: CARVEDILOL 25 MG TABLET (FP) PO SCH (21:13)
[2017-01-28] MEDS: ATORVASTATIN CA 40 MG TABLET (FP) PO SCH (21:13)
[2017-01-28] MEDS ORDERED: CARVEDILOL 6.25 MG TABLET (FP) PO SCH (22:00)
[2017-01-29] MEDS: DOCUSATE SODIUM 100 MG CAPSULE (FP) PO SCH ×4 (01:17→21:50)
[2017-01-29] MEDS ORDERED: NITROPRUSSIDE SODIUM 50,000 MCG in SODIUM CHLORIDE 248 ML IVPB SCH (02:16)
[2017-01-29 05:44] LABS: TROPONIN I 0.58 ng/ml (0.00-0.05)
[2017-01-29] MEDS: LEVOTHYROXINE NA 50 MCG TABLET (FP) PO SCH (06:18)
[2017-01-29] MEDS: CARVEDILOL 25 MG TABLET (FP) PO SCH ×2 (09:16→21:50)
[2017-01-29] MEDS: ENALAPRIL MALEATE 10 MG TABLET (FP) PO SCH (09:16)
[2017-01-29] MEDS: BUDESONIDE/FORMETEROL FUMARATE 160/4.5 mcg INHALER IH SCH ×2 (09:32→21:52)
--- NOTE | 2017-01-29 10:43 | PN ---
Progress Note (short form) - Note Progress Note: S: 81 year old female, with history of hypertension, hypertensive cardiovascular disease, rheumatic heart disease, Paroxysmal atrial fibrillation , COPD, history of bronchial asthma, hypothyroidism, chronic kidney disease, recently was found to have accelerated hypertension requiring admission. Patient also had noticed that she was developing a rash approximately 2 weeks ago and apparently became more pronounced after the dose of Enalapril was increased she started to notice urticaria with bleb formations involving the neck and forearms. Blood pressure on admission was 226/78 mmHg. She denies having chest pain or discomfort, no dyspnea, PND, or orthopnea. No palpitations, lightheadedness, dizziness or syncope reported. Active Medications Generic Name Dose Route Start Last Admin Trade Name Freq PRN Reason Stop Dose Admin Acetaminophen 650 mg 01/27/17 17:54 Tylenol - PO Q6H PRN FEVER OR PAIN Albuterol Sulfate 2 puff 01/27/17 18:19 Ventolin Hfa Inhaler - IH Q6H PRN SHORTNESS OF BREATH Atorvastatin Calcium 40 mg 01/27/17 22:00 01/28/17 21:13 Lipitor - PO 40 mg HS KATHRYN Administration Budesonide/Formoterol Fumarate 1 puff 01/27/17 22:00 01/29/17 09:32 Symbicort 160/4.5mcg - IH 1 puff BID KATHRYN Administration Carvedilol 25 mg 01/28/17 22:00 01/29/17 09:16 Coreg - PO 25 mg BID KATHRYN Administration Docusate Sodium 100 mg 01/28/17 22:15 01/29/17 06:04 Colace - PO Not Given TID KATHRYN Enalapril Maleate 10 mg 01/28/17 22:00 01/29/17 09:16 Vasotec - PO 10 mg BID KATHRYN Administration Sodium Nitroprusside 50,000 250 mls @ 9.86 mls/hr 01/29/17 02:16 01/29/17 01:30 mcg/ Sodium Chloride IVPB Not Given TITR KATHRYN Protocol 0.5 MCG/KG/MIN Levothyroxine Sodium 50 mcg 01/28/17 07:00 01/29/17 06:18 Synthroid - PO 50 mcg ACBK KATHRYN Administration Ondansetron HCl 4 mg 01/27/17 17:54 Zofran Injection IVPB Q6H PRN NAUSEA Warfarin Sodium 2 mg 01/29/17 18:00 Coumadin - PO 01/29/17 18:01 ONCE ONE Warfarin Sodium 1 mg 01/30/17 18:00 Coumadin - PO 01/30/17 18:01 ONCE ONE O: 81 year old female was in no acute distress, no pallor, cyanosis, clubbing, or jaundice. Last Vital Signs Temp Pulse Resp BP Pulse Ox 98.5 F 56 L 18 139/72 98 01/29/17 07:44 01/29/17 07:44 01/29/17 07:59 01/29/17 07:44 01/29/17 07:59 Neck: Supple, no JVD, negative HJR, carotids were equal and upstrokes were normal, no thyromegaly appreciated. Heart: PMI was in the 5th intercostal space, no heaves or thrills, S1 and S2 were normal. Ejections systolic murmur grade I/ heard at marty second right intercoastal space. Grade II/ decresendo systolic murmur was heard at the apex. No gallops were appreciated. Lungs: Clear on auscultation bilaterally. Abdomen: Soft, nontender, no hepatosplenomegaly appreciated, and no palpable masses were felt. Extremities: No calf tenderness or dependent edema. Pulses are normal. CBC, BMP 01/28/17 07:35 01/28/17 07:35 Laboratory Results - last 24 hr 01/28/17 01/28/17 01/28/17 07:35 12:10 18:12 Creatine Kinase 71 79 Troponin I 0.44 0.90 H* 0.65 H* 01/29/17 01/29/17 04:30 04:30 Creatine Kinase Cancelled 53 Troponin I Cancelled 0.58 H EKG 01/27/2017: Sinus bradycardia, intra atrial conduction abnormality, right bundble branch block. Impression: 1. Accelerated hypertension (Systolic) 2. Rash / Urticaria, etiology to be determined, most likely related to Enalapril. 3. History of COPD. 4. Right bundle branch block. 5. Elevated BNP and troponin levels, etiology; a. Left ventricular failure. b. Ischemic heart disease. c. Elevated troponins could also be related to underlying chronic kidney disease. 6. Hypothyroidism. 7. Paroxysmal Atrial fibrillation, currently in sinus rhythm. 8. S/p bioprosthetic mitral and aortic valve prosthesis. Recommendations: 1. Discontinue Enalapril. 2. Add Benicar 20 mg PO daily and can be maximized to 40 mg depending on blood pressure. 3. If rash / urticaria recurs patient will require allergy / immunology consultation. 4. Follow up x-ray chest and BNP. Prognosis: Guarded. Attestation: Documentation prepared by Sai Padilla, acting as forensic medical examiner for Fede Myrick MD.
--- NOTE | 2017-01-29 14:17 | PN ---
Physical Exam: SUBJECTIVE: Patient seen and examined at bedside. OBJECTIVE: Vital Signs Period Temp Pulse Resp BP Sys/Vasquez Pulse Ox Last 24 Hr 97.5 F-99 F 54-68 18-20 134-208/43-77 93-98 GENERAL: The patient is awake, alert, and fully oriented, in no acute distress. HEAD: Normal with no signs of trauma. EYES: PERRL, extraocular movements intact, sclera anicteric, conjunctiva clear. No ptosis. LUNGS: Breath sounds equal, clear to auscultation bilaterally, no wheezes, no crackles, no accessory muscle use. HEART: Regular rate and rhythm, S1, S2 without murmur, rub or gallop. ABDOMEN: Soft, nontender, nondistended, normoactive bowel sounds, no guarding, no rebound, no hepatosplenomegaly, no masses. EXTREMITIES: 2+ pulses, warm, well-perfused, no edema. NEUROLOGICAL: Cranial nerves II through XII grossly intact. Normal speech, gait not observed. CBCD WBC 8.6 K/mm3 (4.0-10.8) D 01/28/17 07:35 RBC 4.62 M/mm3 (3.60-5.2) 01/28/17 07:35 Hgb 13.1 GM/dl (10.7-15.3) 01/28/17 07:35 Hct 40.0 % (32.4-45.2) 01/28/17 07:35 MCV 86.5 fl (80-96) 01/28/17 07:35 MCHC 32.8 g/dl (32.0-36.0) 01/28/17 07:35 RDW 14.3 % (11.6-15.6) 01/28/17 07:35 Plt Count 224 K/MM3 (134-434) 01/28/17 07:35 MPV 9.1 fl (7.5-11.1) 01/28/17 07:35 CMP Sodium 138 mmol/L (136-145) 01/28/17 07:35 Potassium 4.4 mmol/L (3.5-5.1) 01/28/17 07:35 Chloride 105 mmol/L (98-107) 01/28/17 07:35 Carbon Dioxide 24 mmol/L (22-28) 01/28/17 07:35 Anion Gap 9 (8-16) 01/28/17 07:35 BUN 25 mg/dl (7-18) H 01/28/17 07:35 Creatinine 1.4 mg/dl (0.6-1.3) H 01/28/17 07:35 Creat Clearance w eGFR 36.09 (>60) 01/28/17 07:35 Calcium 8.7 mg/dl (8.4-10.2) 01/28/17 07:35 Total Bilirubin 0.5 mg/dl (0.2-1.0) 01/28/17 07:35 AST 22 U/L (10-42) 01/28/17 07:35 ALT 18 U/L (10-40) 01/28/17 07:35 Alkaline Phosphatase 132 U/L (32-92) H 01/28/17 07:35 Total Protein 6.4 g/dl (6.4-8.3) 01/28/17 07:35 Albumin 3.6 g/dl (3.5-5.0) 01/28/17 07:35 Laboratory Results - last 24 hr 01/28/17 01/28/17 01/29/17 12:10 18:12 04:30 Creatine Kinase 79 Cancelled Troponin I 0.90 H* 0.65 H* Cancelled 01/29/17 04:30 Creatine Kinase 53 Troponin I 0.58 H Active Medications Generic Name Dose Route Start Last Admin Trade Name Freq PRN Reason Stop Dose Admin Acetaminophen 650 mg 01/27/17 17:54 Tylenol - PO Q6H PRN FEVER OR PAIN Albuterol Sulfate 2 puff 01/27/17 18:19 Ventolin Hfa Inhaler - IH Q6H PRN SHORTNESS OF BREATH Atorvastatin Calcium 40 mg 01/27/17 22:00 01/28/17 21:13 Lipitor - PO 40 mg HS KATHRYN Administration Budesonide/Formoterol Fumarate 1 puff 01/27/17 22:00 01/29/17 09:32 Symbicort 160/4.5mcg - IH 1 puff BID KATHRYN Administration Carvedilol 25 mg 01/28/17 22:00 01/29/17 09:16 Coreg - PO 25 mg BID KATHRYN Administration Docusate Sodium 100 mg 01/28/17 22:15 01/29/17 06:04 Colace - PO Not Given TID KATHRYN Enalapril Maleate 10 mg 01/28/17 22:00 01/29/17 09:16 Vasotec - PO 10 mg BID KATHRYN Administration Sodium Nitroprusside 50,000 250 mls @ 9.86 mls/hr 01/29/17 02:16 01/29/17 01:30 mcg/ Sodium Chloride IVPB Not Given TITR KATHRYN Protocol 0.5 MCG/KG/MIN Levothyroxine Sodium 50 mcg 01/28/17 07:00 01/29/17 06:18 Synthroid - PO 50 mcg ACBK KATHRYN Administration Ondansetron HCl 4 mg 01/27/17 17:54 Zofran Injection IVPB Q6H PRN NAUSEA Warfarin Sodium 2 mg 01/29/17 18:00 Coumadin - PO 01/29/17 18:01 ONCE ONE Warfarin Sodium 1 mg 01/30/17 18:00 Coumadin - PO 01/30/17 18:01 ONCE ONE ASSESSMENT/PLAN 81 year-old female with a PMH Of HTN, HLD, afib on coumadin, aortic and mitral tissue valve replacements, hypothyrodism, asthma/COPD and diverticulitis. Admitted for hypertensive emergency. Hypertensive emergency --on arrival BP 214/77 with accompanying headache; then developed nausea --BP has been challenging to control requiring PRN hydralazine --presently on Coreg 25mg BID, losartan 50mg daily --discussed with Dr. Myrick, consider adding Lasix if BP remains elevated Atrial fibrillation --rate in 50's which appears to be baseline --INR is therapeutic 2.96 --coumadin 2mg Hyperlipidemia --continue Lipitor Aortic and mitral tissue valve replacements Multiple heart valve insufficiencies --01/29 echo: LV EF normal, impaired LV relaxation; RV normal; mild BLAE; prosthetic mitral valve well-seated, mild MR; mild to moderate TR; moderate pHTN ; aortic prosthetic valve, moderate AI; moderate PI Asthma/COPD --stable --continue Symbicort Hypothyroidism --continue levothyroxine --TSH ordered F/E/N Fluids: PO intake adequate Electrolytes: replete as indicated Nutrition: low sodium DVT prophylaxis: on warfarin; oob, ambulation Dispo: continues to require inpatient care. Full Code. Visit type - Emergency Visit Emergency Visit: Yes ED Registration Date: 01/27/17 Care time: The patient presented to the Emergency Department on the above date and was hospitalized for further evaluation of their emergent condition. - New Patient This patient is new to me today: Yes Date on this admission: 01/29/17 - Critical Care Critical Care patient: No
[2017-01-29] MEDS: LOSARTAN POTASSIUM 50 MG TABLET (FP) PO SCH (16:33)
[2017-01-29] MEDS ORDERED: WARFARIN NA 2 MG TABLET (UD) PO ONE ×3 (18:00→21:45)
[2017-01-29] MEDS: ATORVASTATIN CA 40 MG TABLET (FP) PO SCH (21:50)
[2017-01-30] MEDS: DOCUSATE SODIUM 100 MG CAPSULE (FP) PO SCH ×2 (06:38→15:06)
[2017-01-30] MEDS: LEVOTHYROXINE NA 50 MCG TABLET (FP) PO SCH (06:38)
[2017-01-30 08:56] LABS: INR 2.67 (0.82-1.09)
[2017-01-30] MEDS ORDERED: LOSARTAN POTASSIUM 50 MG TABLET (FP) PO SCH (10:00)
[2017-01-30] MEDS: CARVEDILOL 25 MG TABLET (FP) PO SCH (10:22)
[2017-01-30] MEDS: LOSARTAN POTASSIUM 50 MG TABLET (FP) PO SCH (10:22)
[2017-01-30] MEDS: BUDESONIDE/FORMETEROL FUMARATE 160/4.5 mcg INHALER IH SCH (10:25)
--- NOTE | 2017-01-30 12:20 | PN ---
Progress Note, Physician Chief Complaint: Events noted Not in distress History of Present Illness: Patient was seen and examined. Awake and alert. Chart was reviewed Denies chest pain, SOB or palpitations BP improved - Current Medication List Current Medications: Active Medications Acetaminophen (Tylenol -) 650 mg PO Q6H PRN PRN Reason: FEVER OR PAIN Albuterol Sulfate (Ventolin Hfa Inhaler -) 2 puff IH Q6H PRN PRN Reason: SHORTNESS OF BREATH Atorvastatin Calcium (Lipitor -) 40 mg PO HS COUNT INCLUDES THE [facility] Last Admin: 01/29/17 21:50 Dose: 40 mg Budesonide/Formoterol Fumarate (Symbicort 160/4.5mcg -) 1 puff IH BID COUNT INCLUDES THE [facility] Last Admin: 01/30/17 10:25 Dose: 1 puff Carvedilol (Coreg -) 25 mg PO BID COUNT INCLUDES THE [facility] Last Admin: 01/30/17 10:22 Dose: 25 mg Docusate Sodium (Colace -) 100 mg PO TID COUNT INCLUDES THE [facility] Last Admin: 01/30/17 06:38 Dose: 100 mg Sodium Nitroprusside 50,000 (mcg/ Sodium Chloride) 250 mls @ 9.86 mls/hr IVPB TITR KATHRYN; 0.5 MCG/KG/MIN PRN Reason: Protocol Last Admin: 01/29/17 01:30 Dose: Not Given Levothyroxine Sodium (Synthroid -) 50 mcg PO ACBK COUNT INCLUDES THE [facility] Last Admin: 01/30/17 06:38 Dose: 50 mcg Losartan Potassium (Cozaar -) 50 mg PO DAILY COUNT INCLUDES THE [facility] Last Admin: 01/30/17 10:22 Dose: 50 mg Ondansetron HCl (Zofran Injection) 4 mg IVPB Q6H PRN PRN Reason: NAUSEA Warfarin Sodium (Coumadin -) 1 mg PO ONCE ONE Stop: 01/30/17 18:01 Warfarin Sodium (Coumadin -) 2 mg PO DAILY@1800 COUNT INCLUDES THE [facility] - Objective Vital Signs: Vital Signs Temperature 98.2 F 01/30/17 09:00 Pulse Rate 52 L 01/30/17 09:00 Respiratory Rate 14 01/30/17 09:00 Blood Pressure 124/58 01/30/17 09:00 O2 Sat by Pulse Oximetry (%) 98 01/29/17 22:00 HENT: Yes: Atraumatic Neck: Yes: Supple Cardiovascular: Yes: Regular Rate and Rhythm, Murmur (2/6 SM), S1, S2. No: Gallop Respiratory: Yes: CTA Bilaterally Gastrointestinal: Yes: Normal Bowel Sounds, Soft. No: Tenderness Edema: No Labs: CBC, BMP 01/28/17 07:35 01/28/17 07:35 INR, PTT INR 2.67 (0.82-1.09) H D 01/30/17 05:35 Assessment/Plan 1. Hypertensive urgency improved with better controlled BP 2. Rheumatic heart disease s/p AVR and MVR - bioprosthesis 3. Paroxysmal atrial fibrillation on Coumadin with therapeutic INR 4. Mild COPD 5. Hypothyroidism 6. CKD 7. Hives - allergic reaction PLAN: 1. Continue Carvedilol 25 mg BID and Losartan 50 mg QD 2. Continue Coumadin per INR 3. As BP remains stable, patient may be discharged on above regimen of BP medication. Enalapril was discontinue due to possibility of causing hives 4. Continue Atorvastatin Kamron Horne MD
--- NOTE | 2017-01-30 13:41 | DS ---
Physical Examination Vital Signs: Vital Signs Temperature 98.2 F 01/30/17 09:00 Pulse Rate 52 L 01/30/17 09:00 Respiratory Rate 14 01/30/17 09:00 Blood Pressure 124/58 01/30/17 09:00 O2 Sat by Pulse Oximetry (%) 93 L 01/30/17 09:00 Findings/Remarks: GENERAL: The patient is awake, alert, and fully oriented, in no acute distress. HEAD: Normal with no signs of trauma. EYES: PERRL, extraocular movements intact, sclera anicteric, conjunctiva clear. No ptosis. LUNGS: Breath sounds equal, clear to auscultation bilaterally, no wheezes, no crackles, no accessory muscle use. HEART: Regular rate and rhythm, S1, S2 without murmur, rub or gallop. ABDOMEN: Soft, nontender, nondistended, normoactive bowel sounds EXTREMITIES: 2+ pulses, warm, well-perfused, no edema. NEUROLOGICAL: Cranial nerves II through XII grossly intact. Normal speech Labs: CBC, BMP 01/28/17 07:35 01/28/17 07:35 Discharge Summary Reason For Visit: HYPERTENSION Current Active Problems A-fib (Acute) Asthma (Acute) COPD (chronic obstructive pulmonary disease) (Acute) DVT prophylaxis (Acute) HLD (hyperlipidemia) (Acute) Hypertensive urgency (Acute) Hypothyroidism (Acute) Poorly-controlled hypertension (Acute) Hospital Course: This is a 81 y/o female with a past medical history of Afib (on Coumadin), Aortic Valve Replacement and Mitral Valve Replacement (Bovine x2), HTN, HLD, Hypothyroid, Asthma, COPD, Diverticulitis. Who presents to the ED from her PMD' s office with elevated blood pressure. Patient reports seeing her PMD for hives to her upper body, there are blood pressure was noted to be elevated. She states that she had a recent change to her blood pressure regimen, but is compliant. Patient denies blurred vision, dizziness, SOB, CP. Patient denies, fever, chills, N/V/D, constipation. Hypertensive emergency --on arrival BP 214/77 with accompanying headache; then developed nausea --BP has been challenging to control requiring PRN hydralazine --presently on Coreg 25mg BID, losartan 50mg daily Atrial fibrillation --rate in 50's which appears to be baseline --INR is therapeutic 2.96 --coumadin 2mg Hyperlipidemia --continue Lipitor Aortic and mitral tissue valve replacements Multiple heart valve insufficiencies --01/29 echo: LV EF normal, impaired LV relaxation; RV normal; mild BLAE; prosthetic mitral valve well-seated, mild MR; mild to moderate TR; moderate pHTN ; aortic prosthetic valve, moderate AI; moderate PI Asthma/COPD --stable --continue Symbicort Hypothyroidism --continue levothyroxine --TSH 6.07, will need outpatient follow-up in 3-4 weeks for repeat TSH testing Condition: Improved - Instructions Diet, Activity, Other Instructions: Please return to the ED with new, persistent, or worsening symptoms. Please follow-up with providers as indicated. STOP taking your enalapril. Follow-up with an fuel efficient automobile designer for further allergy testing Referrals: Chito Lind MD [Staff Physician] - (Please follow-up with cardiology within 1 week for further management of your blood pressure) Obey Shi MD [Staff Physician] - 1 Week (As prescribed by Dr. Shi, please take Synthroid 100mcg my mouth daily. Follow-up with your pcp within 3-4 weeks to have your thyroid hormones rechecked.) Afshan Kemp MD [Staff Physician] - (Please follow-up with the fuel efficient automobile designer within 1 week for further allergy testing.) Disposition: HOME - Home Medications Comprehensive Discharge Medication List: Ambulatory Orders Albuterol Sulfate Inhaler - [Ventolin HFA Inhaler -] 1 - 2 inh PO ASDIR Cholecalciferol (Vitamin D3) [Vitamin D3] 2,000 unit PO ASDIR 03/30/16 Atorvastatin Ca [Lipitor] 40 mg PO HS 01/27/17 Budesonide/Formeterol Fumarate [SYMBICORT 160/4.5mcg -] 1 inh PO BID 01/27/17 Acetaminophen [Tylenol .Regular Strength -] 650 mg PO Q6H PRN #0 tablet Carvedilol [Coreg -] 25 mg PO BID #60 tablet 01/30/17 Losartan Potassium [Cozaar -] 50 mg PO DAILY #30 tablet 01/30/17 This patient is new to me today: Yes Date on this admission: 01/30/17 Emergency Visit: Yes ED Registration Date: 01/27/17 Care time: The patient presented to the Emergency Department on the above date and was hospitalized for further evaluation of their emergent condition. Critical Care patient: No - Discharge Referral Referred to [facility] Med [facility].C[facility] Yes Physician Referral: Obey Shi MD (Int Med)
[2017-01-30 14:27] VITALS: TEMP 97.9
[2017-01-30 14:42] VITALS: BP 107/50; PULSE 52
--- NOTE | 2017-01-30 16:19 | EKG ---
Test Reason : Blood Pressure : / mmHG Vent. Rate : 059 BPM Atrial Rate : 059 BPM P-R Int : 194 ms QRS Dur : 118 ms QT Int : 494 ms P-R-T Axes : 070 -02 033 degrees QTc Int : 489 ms SINUS BRADYCARDIA INCOMPLETE RIGHT BUNDLE BRANCH BLOCK POOR R WAVE PROGRESSION WHEN COMPARED WITH ECG OF 27-JAN-2017 12:12, NO SIGNIFICANT CHANGE IS FOUND Confirmed by MD FIOR, SHARIF ([id number]) on 01/30/2017 4:19:11 PM Referred By: WONG CHAVES Confirmed By:SHARIF CHILDRESS MD
[2017-01-30] MEDS ORDERED: WARFARIN NA 2 MG TABLET (UD) PO SCH (18:00)
[2017-01-30] MEDS ORDERED: WARFARIN NA 1 MG TABLET (FP) PO ONE (18:00)
--- NOTE | 2017-01-31 10:59 | EKG ---
Test Reason : Blood Pressure : / mmHG Vent. Rate : 066 BPM Atrial Rate : 066 BPM P-R Int : 184 ms QRS Dur : 114 ms QT Int : 470 ms P-R-T Axes : 038 005 039 degrees QTc Int : 492 ms NORMAL SINUS RHYTHM INCOMPLETE RIGHT BUNDLE BRANCH BLOCK POOR R WAVE PROGRESSION NONSPECIFIC ST ABNORMALITY PROLONGED QT ABNORMAL ECG Confirmed by MD SAEID, ARSALAN ([id number]) on 01/31/2017 10:58:57 AM Referred By: YO WHITTINGTON Confirmed By:ARSALAN BREAUX MD
--- NOTE | 2017-01-31 11:00 | EKG ---
Test Reason : Blood Pressure : / mmHG Vent. Rate : 067 BPM Atrial Rate : 067 BPM P-R Int : 198 ms QRS Dur : 120 ms QT Int : 468 ms P-R-T Axes : 050 005 042 degrees QTc Int : 494 ms NORMAL SINUS RHYTHM RSR' OR QR PATTERN IN V1 SUGGESTS RIGHT VENTRICULAR CONDUCTION DELAY POOR R WAVE PROGRESSION CANNOT RULE OUT ANTERIOR INFARCT (CITED ON OR BEFORE 28-JAN-2017) NONSPECIFIC ST ABNORMALITY ABNORMAL ECG Confirmed by MD SAEID, ARSALAN ([id number]) on 01/31/2017 10:59:53 AM Referred By: MD HAWKINS Confirmed By:ARSALAN BREAUX MD
== END 2017-01-30 17:12 | disposition home or self-care (01) | DRG 305 ==
LOC: FER 12:08 → OBSVTOIN 15:34 → FM/S 15:34 → UNDOADMOB 17:31 → FM/S 17:31 → J4W 01-28 22:57
PROVIDERS: ADMIT Internal Medicine; ATTEND Registered Nurse
DX: I13.10 Hypertensive heart and chronic kidney disease without heart failure, with stage 1 through stage 4 chronic kidney disease, or unspecified chronic kidney disease (principal); I48.0 Paroxysmal atrial fibrillation; J44.9 Chronic obstructive pulmonary disease, unspecified; E03.9 Hypothyroidism, unspecified; E78.5 Hyperlipidemia, unspecified; J45.909 Unspecified asthma, uncomplicated; N18.9 Chronic kidney disease, unspecified; Z87.891 Personal history of nicotine dependence
CPT/HCPCS: 36415; 71010-TC; 80053; 80061; 82550; 83735; 83880; 84443; 84484; 85025; 85027; 85610; 93005; 93010; 93306-TC; 99282-25

== ENCOUNTER → 2017-03-08 | Day surgery (SDC) | payer OTHER ==
--- NOTE | 2017-03-09 17:17 | OP ---
DATE OF OPERATION: 03/08/2017 PREOPERATIVE DIAGNOSIS: Left axillary node, suspicious, and left breast mass at 2 o'clock, 5 cm from the nipple. ANESTHESIA: Local. ATTENDING SURGEON: Aram Gauthier MD ESTIMATED BLOOD LOSS: Minimal. COMPLICATIONS: None. Patient was made aware of the risks and benefits of the procedure and consented. Preprocedure, she had stopped taking her Coumadin for 2 days. She was placed in a supine position, and the left axilla was approached first. Under sterile conditions, using 1% lidocaine for local anesthesia, a small bonny was made in the skin. Using a 13-gauge suction biopsy device under ultrasound guidance, 6 cores were obtained and submitted to Pathology. Likewise, under ultrasound guidance, a bow-tie clip was placed into the axilla. Steri-Strips and a sterile bandage were applied. The left breast mass was then approached. Under sterile conditions with 1% lidocaine for local anesthesia, a small bonny was made in the skin. Using a 13-gauge suction biopsy device under ultrasound guidance, multiple cores were obtained and submitted to Pathology. Likewise, under ultrasound guidance, a U-shaped clip was placed into the biopsy region. Well tolerated by the patient. Steri-Strips and sterile bandage were applied. The patient tolerated the procedure well, was discharged to home with instructions. We will call her with the results. ARAM GAUTHIER M.D. [id number]
--- NOTE | 2017-03-10 14:15 | PATH ---
Surgical Pathology Report Patient Name: FELIPE MENSAH [facility]. Rec. #: [id number] /Age/Gender: 1935 (Age: 82) / F Account: [id number] Location: [facility] RADIOLOGY U Taken: 03/08/2017 Received: 03/08/2017 Reported: 03/10/2017 Physicians: Allyson Doe M.D. Ksenia Spicer M.D. Specimen(s) Received A: AXILLA NODE CORE BIOPSY B: LEFT BREAST CORE BIOPSY 2:00 O'CLOCK, 5CM FN Clinical History Highly suspicious, nonpalpable lesion Final Diagnosis A. LEFT AXILLA, NEEDLE CORE BIOPSY: POSITIVE FOR POORLY DIFFERENTIATED INVASIVE DUCTAL CARCINOMA, MEASURING UP TO 1.3 CM IN LENGTH MEASURED ON THE SLIDE. NO RESIDUAL LYMPH NODE IDENTIFIED. B. 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 CARCINOMA IS IDENTIFIED IN MULTIPLE BIOPSY CORES, BUT MEASURES ONLY 0.3 CM IN LENGTH IN ANY SINGLE CORE. Results of Estrogen Receptor (ER) and Progesterone Receptor (IA) studies performed on block "B" at [facility] are as follows: ER (clone [id number] mouse monoclonal antibody by [employer]): 0% nuclear staining (Negative). IA (clone16 mouse monoclonal antibody by [employer]) : 0% nuclear staining (Negative). Positive and negative controls (internal if applicable) show appropriate results. Formalin fixation and cold ischemic times are within current ASCO/CAP recommendations for ER, IA and Her2 testing. Comment: This case was discussed with MAI Lozano of Dr. Doe office on March 10, 2017. Assays for HER-2/arlet and Ki67 are pending, and a report will follow. Electronically Signed Donal Maurer M.D. Addendum Reported: 03/11/2017 Addendum Diagnosis Results of Her2 (IHC) & Ki-67 studies performed on block "B" at [place], [place] ([id number]) are as follows: Her2 IHC (EP3 from [employer], formerly known as [id number], using [employer] Polymer Refine detection kit):1+ Negative Ki-67: ~70% (High proliferative index) Positive and negative controls (internal if applicable) show appropriate results. Donal Maurer M.D. Gross Description A. Received in formalin labeled "left biopsy axilla," is a 2.1 x 1.7 x 0.2 cm aggregate of multiple kim-yellow, irregular to cylindrical portions of fibroadipose tissue. The formalin is filtered and the specimen is entirely submitted in one cassette. B. Received in formalin labeled "left breast biopsy 2:00, 5 cmfn," is a 2.4 x 2.0 x 0.3 cm aggregate of multiple kim-yellow, irregular to cylindrical portions of fibroadipose tissue. The formalin is filtered and the specimen is entirely submitted in one cassette. Time to formalin fixation: Less than one minute Total formalin fixation time: Approximately 26 hours. 03/09/201703/09/2017
== END | disposition home or self-care (01) ==
LOC: FRADUS-SUR 14:58
PROVIDERS: ATTEND Surgery
PROC: 0HBU3ZX Excision of Left Breast, Percutaneous Approach, Diagnostic (ICD-10-PCS; principal; 2017-03-08)
DX: N63 Unspecified lump in breast (principal); C50.412 Malignant neoplasm of upper-outer quadrant of left female breast
CPT/HCPCS: 19083; 76942-TC; 88305-TC; 88342-TC

== ENCOUNTER 2017-04-06 07:04 | Day surgery (SDC) | payer OTHER ==
[2017-04-02 13:27] VITALS: BMI 28.5
[2017-04-06] MEDS ORDERED: PORTA CATH FLUSH 10 ML IVPUSH PRN (07:07)
[2017-04-06 07:40] VITALS: TEMP 98.4
[2017-04-06 08:07] LABS: BASOPHIL 0.6 % (0-2.0); EOSINOPHIL 2.4 % (0-4.5); MCH 28.9 pg (25.7-33.7); MCHC 33.2 g/dl (32.0-36.0); MEAN CELL VOLUME 87.2 fl (80-96); MEAN PLT VOLUME 8.7 fl (7.5-11.1); PLATELET COUNT 204 K/MM3 (134-434); WHITE BLOOD COUNT 6.4 K/mm3 (4.0-10.0)
[2017-04-06 08:32] LABS: INR 1.34 (0.82-1.09); PROTHROMBIN TIME (PATIENT) 14.8 SEC (9.98-11.88)
[2017-04-06] MEDS ORDERED: MIDAZOLAM HCL 2 MG/2 ML SINGLE DOSE VIAL ONE (10:45)
[2017-04-06 13:24] VITALS: PULSE 56
[2017-04-06 13:26] VITALS: BP 135/50
== END 2017-04-06 13:05 | disposition home or self-care (01) ==
LOC: JRADIR 07:04
PROVIDERS: ATTEND Surgery
PROC: 0JH63XZ Insertion of Tunneled Vascular Access Device into Chest Subcutaneous Tissue and Fascia, Percutaneous Approach (ICD-10-PCS; principal; 2017-04-06)
PROC: 02HV33Z Insertion of Infusion Device into Superior Vena Cava, Percutaneous Approach (ICD-10-PCS; 2017-04-06)
PROC: B518ZZA Fluoroscopy of Superior Vena Cava, Guidance (ICD-10-PCS; 2017-04-06)
DX: C50.912 Malignant neoplasm of unspecified site of left female breast (principal)
CPT/HCPCS: 36561; 76937; 77001; C1751; 36415; 85025; 85610; C1788

== ENCOUNTER 2017-10-05 06:54 | Day surgery (SDC) | payer OTHER ==
--- NOTE | 2017-09-29 14:08 | HP ---
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 Recent MRI 08/2017 showed complete response to neoadjuvant chemotherapy with no enhancement in left breast or axilla History Source: Patient Limitations to Obtaining History: No Limitations - Past Medical History Cardiovascular: Yes: AFIB, HTN, Hyperlipdemia Pulmonary: Yes: COPD Gastrointestinal: Yes: Diverticulitis Endocrine: Yes: Hypothyroidism - Past Surgical History Past Surgical History: Yes: Appendectomy, Valve Replacement (2 valves replaced open heart surgery 2012 cardioversion 2012 and 2016 HTN hospitalized 2016) - Smoking History Smoking history: Former smoker Have you smoked in the past 12 months: No Aproximately how many cigarettes per day: 0 If you are a former smoker, when did you quit?: 1985 - Alcohol/Substance Use Hx Alcohol Use: No Home Medications - Allergies Allergies/Adverse Reactions: Allergies Allergy/AdvReac Type Severity Reaction Status Date / Time nystatin Allergy Severe Swelling Verified 04/06/17 07:43 enalapril Allergy Verified 04/06/17 07:43 morphine AdvReac Severe Vomiting Verified 04/06/17 07:43 amiodarone AdvReac Intermediate Thyroid Verified 04/06/17 07:43 and eye problems amlodipine AdvReac Intermediate Leg edema Verified 04/06/17 07:43 - Home Medications Home Medications: Ambulatory Orders Albuterol Sulfate Inhaler - [Ventolin HFA Inhaler -] 1 - 2 inh PO ASDIR Cholecalciferol (Vitamin D3) [Vitamin D3] 2,000 unit PO DAILY 03/30/16 Atorvastatin Ca [Lipitor] 40 mg PO HS 01/27/17 Budesonide/Formeterol Fumarate [SYMBICORT 160/4.5mcg -] 1 inh PO BID 01/27/17 Carvedilol [Coreg -] 25 mg PO BID #60 tablet 01/30/17 Losartan Potassium [Cozaar -] 50 mg PO DAILY #30 tablet 01/30/17 Family Disease History - Family Disease History Family Disease History: CA: Grandparent (mat GM uterine 70), Mother (uterine ca 68) Physical Examination Constitutional: Yes: Well Nourished Breast(s): Yes: Other (diffusely nodular no palpble mass or adenopathy bilaterally excellent response in left breast to chemotherapy) Problem List - Problems (1) Breast cancer, left breast Code(s): C50.912 - MALIGNANT NEOPLASM OF UNSPECIFIED SITE OF LEFT FEMALE BREAST Qualifiers: Breast location: upper outer quadrant of breast Patient sex: female Assessment/Plan Left breast wide excision lymphoscintogram, sentenel node biopsy,possible axillary node dissection mammogram needle localization of left breast and left axilla
[2017-10-01 12:37] VITALS: BMI 28.5
[2017-10-05 07:46] LABS: INR 1.88 (0.82-1.09); PROTHROMBIN TIME (PATIENT) 20.8 SEC (10.2-13.0)
[2017-10-05] MEDS ORDERED: LIDOCAINE HCL 1%, 10 MG/ML (20ML VIAL) ONE (10:22)
[2017-10-05] MEDS ORDERED: ISOSULFAN BLUE 10 MG/ML VIAL SQ ONE (10:24)
[2017-10-05] MEDS ORDERED: PROPOFOL 20 ML ONE ×2 (11:36)
[2017-10-05] MEDS ORDERED: LIDOCAINE HCL/PF 2% SDV 5ML VIAL ONE (11:36)
[2017-10-05] MEDS ORDERED: ONDANSETRON 4 MG/2 ML VIAL IVPUSH PRN ×2 (12:05→14:49)
[2017-10-05] MEDS ORDERED: oxyCODONE HCL 5 MG TABLET PO PRN (12:05)
[2017-10-05] MEDS ORDERED: LACTATED RINGERS SOLUTION 1,000 ML IV SCH (12:15)
[2017-10-05] MEDS ORDERED: ACETAMINOPHEN 325 MG TABLET (FP) PO PRN (12:17)
[2017-10-05] MEDS ORDERED: ePHEDrine SULFATE 50 MG/1 ML AMPULE ONE (12:32)
[2017-10-05] MEDS ORDERED: ceFAZolin SODIUM 1 GM VIAL ONE (12:34)
[2017-10-05] MEDS ORDERED: LIDOCAINE HCL 1%, 10 MG/ML (20ML VIAL) INF ONE (12:44)
[2017-10-05] MEDS ORDERED: DEXAMETHASONE SOD PHOSPHATE 4 MG/1 ML VIAL ONE (12:52)
[2017-10-05] MEDS ORDERED: BUPIVACAINE HCL/PF 2.5 MG/ML - 30 ML VIAL IJ ONE (14:25)
[2017-10-05] MEDS ORDERED: BUPIVACAINE HCL/PF (5 MG/ML) 30 ML VIAL IJ ONE (14:26)
[2017-10-05] MEDS ORDERED: KETOROLAC TROMETHAMINE 30 MG/1 ML VIAL IVPUSH PRN (14:49)
[2017-10-05 15:00] VITALS: TEMP 97.9
[2017-10-05] MEDS ORDERED: DEXTROSE 5%-0.45% SALINE 1,000 ML IV SCH (15:00)
[2017-10-05] MEDS ORDERED: ACETAMINOPHEN 325 MG TABLET (FP) ONE (16:13)
--- NOTE | 2017-10-05 16:28 | OP ---
DATE OF OPERATION: 10/05/2017 PREOPERATIVE DIAGNOSIS: Left breast cancer. POSTOPERATIVE DIAGNOSIS: Left breast cancer. PROCEDURE: Left mammographically localized wide excision with sentinel node targeted lymph node biopsy and complex tissue transfer. ANESTHESIA: Intubated. ATTENDING SURGEON: Mook Gauthier M.D. PLANT CHANGER: Vianey Jefferson ESTIMATED BLOOD LOSS: Minimal. COMPLICATIONS: None. PROCEDURE: The patient was made aware of the risks and benefits of the procedure and consented. Preoperatively, patient went to the radiology suite where needle was placed next to the expressed lesion via mammography. Multiple attempts were made to find the left axillary ultrasound clip, but that was unsuccessful. She was then brought to the nuclear medicine where radioactive tracer was injected into the peritumoral tissues. She was then brought to the operating room and placed in a supine position on the operating room table. After general anesthesia was induced, the patient was intubated. 2.5 mL of 1% isosulfan blue was locally infiltrated into the peritumoral tissues. The operative site was prepped and draped in the usual sterile fashion, waiting approximately 10 minutes with gentle manual compression. A curvilinear incision was made in the left axilla. Using blunt and sharp dissection tissues were dissected down, where a hot, blue lymph node was identified. This was surgically excised and specimen radiographs confirmed the presence of the index clip. Additional hot lymph node was identified, and submitted with original lymph node for frozen section which was reported as no metastasis. Palpation of the rest of the axilla, interrogation with a needle probe showed that there was no suspicious areas. The wound was copiously irrigated with normal saline, hemostasis maintained by electrocautery. The wound was then closed with deep 3-0 Vicryl followed by a running subcuticular 4-0 Monocryl. The left breast was approached. An elliptical radial incision was made over the wire. At this point, the wire and needle had accidentally been dislodged, but the dino was used for reference. Using electrocautery, thick skin flaps were made, tissues around the prior demarcated area were sharply excised and submitted with a short suture superior, long suture lateral. Specimen radiographs did not confirm the presence of the indexed lesion. Additional superior segment was taken with a suture at the new superior region and this specimen radiograph confirmed the presence of indexed lesion. Additional superior, inferior, medial, lateral, deep and anterior segments were taken with clips at the new margin. The wound was copiously irrigated with normal saline, hemostasis maintained by electrocautery. Using electrocautery, tissue flaps were made by taking the breast tissue off the pectoralis muscle and rotating it into the cavity as well as making skin flaps. This was all rotated in to fill the defect with multiple layers of 2-0 Vicryl in a scaffolding type fashion. Skin was then closed with deep 3-0 Vicryl followed by running subcuticular 4-0 Monocryl. Dermabond, sterile dressings, and a very tight compression bra were then applied, and the patient having tolerated the procedure well was transferred to recovery room in excellent condition. MOOK GAUTHIER M.D. [id number]
[2017-10-05 17:14] VITALS: BP 148/52; PULSE 66
--- NOTE | 2017-10-08 15:26 | PATH ---
Surgical Pathology Report Patient Name: FELIPE MENSAH [facility]. Rec. #: [id number] /Age/Gender: 1935 (Age: 82) / F Account: [id number] Location: [facility] Taken: 10/05/2017 Received: 10/05/2017 Reported: 10/08/2017 Physicians: Aram Gauthier M.D. Specimen(s) Received A: LEFT AXILLARY SENTINEL LYMPH NODE B: LEFT BREAST WIDE EXCISION C: LEFT BREAST INFERIOR SEGMENT D: LEFT BREAST MEDIAL SEGMENT E: LEFT BREAST LATERAL SEGMENT F: LEFT BREAST ANTERIOR SEGMENT G: LEFT BREAST POSTERIOR SEGMENT H: LEFT BREAST SUPERIOR SEGMENT Clinical History s/p neoadjuvant chemo Intraoperative Consult Diagnosis A. Left axillary sentinel node, frozen section: Two negative lymph nodes (0/2). Ksenia Manzanares 10/05/17 Final Diagnosis A. LYMPH NODE, LEFT AXILLARY SENTINEL, EXCISION: TWO LYMPH NODES, NEGATIVE FOR METASTATIC CARCINOMA ON H&E STAINED SECTIONS AND CYTOKERATIN (AE1/3) IMMUNOSTAINS. (SEE NOTE) Note: The lymph nodes shows foci of dense hyalinizing fibrosis, consistent with site of prior treated metastatic tumor. B. BREAST, LEFT, WIDE EXCISION: BENIGN BREAST TISSUE SHOWING DENSE HYALINIZING FIBROSIS WITH HISTIOCYTIC REACTION, CONSISTENT WITH PRIOR TREATED TUMOR BED TISSUE. NO RESIDUAL CARCINOMA IS IDENTIFIED. SKIN WITH NO PATHOLOGIC FINDINGS. PATHOLOGIC STAGE (ypTNM): ypT0 ypN0. C. BREAST, LEFT, INFERIOR SEGMENT, EXCISION: BENIGN BREAST TISSUE SHOWING DENSE HYALINIZING FIBROSIS WITH HISTIOCYTIC REACTION, CONSISTENT WITH PRIOR TREATED TUMOR BED TISSUE. NO RESIDUAL CARCINOMA IS IDENTIFIED. D. BREAST, LEFT, MEDIAL SEGMENT, EXCISION: BENIGN BREAST TISSUE SHOWING FOCAL USUAL DUCTAL HYPERPLASIA (UDH). E. BREAST, LEFT, LATERAL SEGMENT, EXCISION: BENIGN BREAST TISSUE. F. BREAST, LEFT, ANTERIOR SEGMENT, EXCISION: BENIGN BREAST TISSUE. G. BREAST, LEFT, POSTERIOR SEGMENT, EXCISION: BENIGN BREAST TISSUE. H. BREAST, LEFT, SUPERIOR SEGMENT, EXCISION: BENIGN BREAST TISSUE. Electronically Signed Luba Bains M.D. Gross Description A. Received fresh for frozen section evaluation, labeled "left axillary sentinel node" are two portions of nodular appearing adipose tissue measuring 2 x 1.2 x 0.5 cm and 1.7 x 1 x 0.4 cm, containing possible lymph nodes. The specimens are bisected and reveal kim-recio lymph node tissue. A metallic clip is identified in the larger lymph node. Frozen section is performed on the lymph nodes. The frozen section residue is entirely submitted in two cassettes as follows: FSA1: larger lymph node; FSA2: smaller lymph node. B. Received in formalin, labeled "left breast wide excision," is a 5.2 x 3.7 x 1.4 cm. kim-yellow, irregular, portion of fibroadipose tissue. There is no needle localization wire present. There is a short suture marking the superior aspect and a long suture marking the lateral aspect, per the surgeon. The anterior surface displays a 2.2 x 0.9 cm kim, elliptical, unremarkable portion of skin. The specimen is inked as follows: Superior blue; inferior green; lateral red; medial yellow; deep black. The specimen is serially sectioned from medial to lateral. Sectioning reveals foci of white fibrous tissue. No definitive residual mass is identified. Train [employer] Member sections are submitted in 11 cassettes as follows: 1-7-fibrous tissue sequentially submitted from medial to lateral (each with superior and inferior margins); 8-skin; 9-deep margin; 10-medial margin; 11-lateral margin. Time to formalin fixation: 17 minutes Total formalin fixation time: Approximately 28 hours. C. Received in formalin labeled "left breast inferior segment," is a 3.2 x 2.7 x 1.0 cm irregular portion of fibroadipose tissue with a suture marking the new margin, per the surgeon. The new margin is inked blue and the specimen is serially sectioned. The specimen is entirely and sequentially submitted in 5 cassettes. D. Received in formalin labeled "left breast medial segment," is a 2.0 x 1.8 x 0.6 cm irregular portion of fibroadipose tissue with a clip marking the new margin, per the surgeon. The new margin is inked blue and the specimen is serially sectioned. The specimen is entirely submitted in 2 cassettes. E. Received in formalin labeled "left breast lateral segment," is a 1.3 x 1.0 x 0.7 cm irregular portion of fibroadipose tissue with a clip marking the new margin, per the surgeon. The new margin is inked blue and the specimen is serially sectioned. The specimen is entirely submitted in one cassette. F. Received in formalin labeled "left breast anterior segment," is a 1.2 x 0.8 x 0.4 cm irregular portion of fibroadipose tissue with a clip marking the new margin, per the surgeon. The new margin is inked blue and the specimen is serially sectioned. The specimen is entirely submitted in one cassette. G. Received in formalin labeled "left breast posterior segment," is a 2.7 x 2.1 x 0.9 cm irregular portion of fibroadipose tissue with a clip marking the new margin, per the surgeon. The new margin is inked blue and the specimen is serially sectioned. The specimen is entirely submitted in 3 cassettes. H. Received in formalin labeled "left breast superior segment," is a 2.2 x 1.6 x 0.3 cm irregular portion of fibroadipose tissue with a clip marking the new margin, per the surgeon. The new margin is inked blue and the specimen is serially sectioned. The specimen is entirely submitted in 2 cassettes. DL/10/06/2017 ebram/10/05/2017
== END 2017-10-05 16:45 | disposition home or self-care (01) ==
LOC: FASU 06:54
PROVIDERS: ATTEND Surgery Surgical Oncology
PROC: 0HBU0ZZ Excision of Left Breast, Open Approach (ICD-10-PCS; principal; 2017-10-05 13:05)
PROC: 07B60ZX Excision of Left Axillary Lymphatic, Open Approach, Diagnostic (ICD-10-PCS; 2017-10-05 13:05)
DX: C50.912 Malignant neoplasm of unspecified site of left female breast (principal); I10 Essential (primary) hypertension; I48.91 Unspecified atrial fibrillation; E78.5 Hyperlipidemia, unspecified; E03.9 Hypothyroidism, unspecified; J44.9 Chronic obstructive pulmonary disease, unspecified; Z87.891 Personal history of nicotine dependence; Z92.21 Personal history of antineoplastic chemotherapy
CPT/HCPCS: 19281; 36415; 76641-TC-LT; 78195-TC; 85610; 94760; A9541

== ENCOUNTER 2018-03-08 08:24 | Day surgery (SDC) | payer OTHER ==
[2018-02-23 11:29] VITALS: BMI 28.9
--- NOTE | 2018-02-25 15:15 | HP ---
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 mammogram and [place] 02/2018 unremarkable except for axillary seroma resolving. - Past Medical History Cardiovascular: Yes: AFIB, HTN, Hyperlipdemia Pulmonary: Yes: COPD Gastrointestinal: Yes: Diverticulitis Endocrine: Yes: Hypothyroidism - Past Surgical History Past Surgical History: Yes: Appendectomy, Valve Replacement (2 valves replaced open heart surgery 2012 cardioversion 2012 and 2016 HTN hospitalized 2016) Additional Past Surgical History: hospitalized for HTN 2017 - Advance Directives Advance Directives: Yes: Health Care Proxy - Smoking History Smoking history: Former smoker Have you smoked in the past 12 months: No Aproximately how many cigarettes per day: 0 If you are a former smoker, when did you quit?: 1985 - Alcohol/Substance Use Hx Alcohol Use: No Home Medications - Allergies Allergies/Adverse Reactions: Allergies Allergy/AdvReac Type Severity Reaction Status Date / Time enalapril Allergy Severe ELEVATED Verified 10/05/17 07:43 B/P-NON EFFECTIVE nystatin Allergy Severe Swelling Verified 10/05/17 07:35 morphine AdvReac Severe Vomiting Verified 10/05/17 07:35 amiodarone AdvReac Intermediate Thyroid Verified 10/05/17 07:35 and eye problems amlodipine AdvReac Intermediate Leg edema Verified 10/05/17 07:35 - Home Medications Home Medications: Ambulatory Orders Albuterol Sulfate Inhaler - [Ventolin HFA Inhaler -] 1 - 2 inh PO ASDIR Cholecalciferol (Vitamin D3) [Vitamin D3] 2,000 unit PO DAILY 03/30/16 Atorvastatin Ca [Lipitor] 40 mg PO HS 01/27/17 Budesonide/Formeterol Fumarate [SYMBICORT 160/4.5mcg -] 1 inh PO ASDIR 01/27/17 Carvedilol [Coreg -] 25 mg PO BID #60 tablet 01/30/17 Losartan Potassium [Cozaar -] 50 mg PO BID 02/23/18 Family Disease History - Family Disease History Family Disease History: CA: Grandparent (mat GM uterine 70), Mother (uterine ca 68) Physical Examination Constitutional: Yes: Well Nourished Breast(s): Yes: Other (diffusely nodular welled healed left breast and axillary incision norecurrence resolving axillary seroma, right breast negative no adenopathy) Problem List - Problems (1) Breast cancer, left breast Code(s): C50.912 - MALIGNANT NEOPLASM OF UNSPECIFIED SITE OF LEFT FEMALE BREAST Qualifiers: Breast location: upper outer quadrant of breast Estrogen receptor status: negative Patient sex: female Qualified Code(s): C50.412 - Malignant neoplasm of upper-outer quadrant of left female breast; Z17.1 - Estrogen receptor negative status [ER-] Assessment/Plan Life port removal
[2018-03-08] MEDS ORDERED: LIDOCAINE HCL 1%, 10 MG/ML (20ML VIAL) ONE (10:16)
[2018-03-08] MEDS ORDERED: PROPOFOL 20 ML ONE (10:20)
[2018-03-08] MEDS ORDERED: MIDAZOLAM HCL 2 MG/2 ML SINGLE DOSE VIAL ONE (10:20)
[2018-03-08] MEDS ORDERED: ONDANSETRON 4 MG/2 ML VIAL IVPUSH PRN (10:57)
[2018-03-08] MEDS ORDERED: DEXTROSE 5%-0.45% SALINE 1,000 ML IV SCH (11:00)
[2018-03-08 13:12] VITALS: TEMP 97.8
[2018-03-08 13:22] VITALS: BP 144/89; PULSE 100
--- NOTE | 2018-03-10 10:40 | OP ---
DATE OF OPERATION: 03/08/2018 PREOPERATIVE DIAGNOSIS: Left breast cancer. POSTOPERATIVE DIAGNOSIS: Left breast cancer. PROCEDURE: Excision of a right subclavian single-lumen LifePort. ANESTHESIA: IV sedation with local. ATTENDING SURGEON: Aram Gauthier MD ESTIMATED BLOOD LOSS: Minimal. COMPLICATIONS: None. DESCRIPTION OF PROCEDURE: Patient was made aware of the risks and benefits of the procedure and consented. She was placed in supine position, and after IV sedation was administered, the operative site was prepped and draped in the usual sterile fashion. Next, 1% lidocaine was used for local anesthesia. An oblique incision was made over the prior incision, incising down to the port head where the capsule was opened. The port head was removed as well as the catheter in its entirety. The catheter length was approximately 19 cm. The catheter lumen was then oversewn with a figure-of-8 suture of 3-0 Vicryl. The wound was copiously irrigated with normal saline. Hemostasis maintained by electrocautery. The wound was then closed with deep 3-0 Vicryl, followed by a running subcuticular 4-0 Monocryl. Steri-Strips and a sterile bandage were then applied. The patient tolerated the procedure well. ARAM GAUTHIER M.D. [id number]
--- NOTE | 2018-03-10 13:47 | PATH ---
Surgical Pathology Report Patient Name: FELIPE MENSAH Med. Rec. #: [id number] /Age/Gender: 1935 (Age: 83) / F Account: [id number] Location: [facility] AMBUL[facility]ORY Taken: 03/08/2018 Received: 03/08/2018 Reported: 03/10/2018 Physicians: Aram Gauthier M.D. Specimen(s) Received EXPLANTED LIFEPORT Clinical History Left breast cancer Final Diagnosis LIFE PORT, REMOVAL: LIFE PORT, DESCRIBED (GROSS EXAMINATION ONLY). Electronically Signed Luba Bains M.D. Gross Description Received fresh labeled "explanted life port," is a 2.5 x 2.4 x 1.4 centimeter clear/kim device consistent with a port. The port displays a 19 cm in length portion of white tubing extending from one aspect. No soft tissue is present. No sections are submitted, gross only. /03/09/2018 saudi/03/09/2018
== END 2018-03-08 12:15 | disposition home or self-care (01) ==
LOC: FASU 08:24
PROVIDERS: ATTEND Surgery Surgical Oncology
PROC: 0JPT0WZ Removal of Totally Implantable Vascular Access Device from Trunk Subcutaneous Tissue and Fascia, Open Approach (ICD-10-PCS; principal; 2018-03-08 10:26)
DX: Z45.2 Encounter for adjustment and management of vascular access device (principal); C50.412 Malignant neoplasm of upper-outer quadrant of left female breast; Z17.1 Estrogen receptor negative status [ER-]; I10 Essential (primary) hypertension; I48.91 Unspecified atrial fibrillation; E78.5 Hyperlipidemia, unspecified; J44.9 Chronic obstructive pulmonary disease, unspecified; E03.9 Hypothyroidism, unspecified
CPT/HCPCS: 88300-TC

== ENCOUNTER 2018-08-21 10:38 | Emergency (ER) | payer OTHER ==
[2018-08-21 10:43] VITALS: BP 162/101; PULSE 111; TEMP 97.8
--- NOTE | 2018-08-21 10:49 | PDOC ---
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 It is clear that she tripped, did not have any dizziness or lightheadedness or syncope. She did not strike her head or jaw or her neck and has no headache, neck pain, chest or abdominal pain, or injury to the other extremities. - Physicial Exam PE: 08/21/18 12:06 Physical exam reveals swelling and tenderness over the distal radius and distal ulna, with a mild deformity. There is a hematoma and ecchymosis over the medial distal radius. There is also hematoma over the olecranon but minimal tenderness, no deformity, and no limited range of motion of the elbow. The head is atraumatic, and neck is nontender with full range of motion in no pain. Chest and abdomen with no sign of trauma. No visible or palpable trauma to the other extremities Full pulses, no distal sensory deficits in the right arm or hand. - Medical Decision Making 08/21/18 12:08 Assessment: Probable wrist fracture, rule out elbow fracture Plan: X-rays reveal an impacted, comminuted fracture of the distal radius, extending into the joint. There is minimal displacement. The joint spaces preserved. There is also a fracture of the ulnar styloid. Elbow x-rays negative. Wrist was placed in a volar splint. After splinting, no numbness tingling pain or weakness of the hand or fingers with good finger motion and good capillary refill. Sling was applied to rest the elbow, but only for 48 hours, after which the patient is advised to proceed with gentle range of motion of the elbow to avoid stiffness. Instructed to follow-up with orthopedist within 1 week for further treatment. Fully ambulatory and in no significant pain or other distress upon discharge with family to follow-up as directed
[2018-08-21] MEDS ORDERED: ACETAMINOPHEN 325 MG TABLET (FP) PO ONE (11:03)
--- NOTE | 2018-08-21 11:13 | PDOC ---
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 The patient reports that the she was taking out the recycling when she tripped over a culvert. She reports falling forward onto her RUE. She denies hitting her head or LOC. Denies other pain. Patient was able to walk after being helped up. She currently endorses R wrist and elbow pain. She notes pain over the dorsum of her wrist and reports reduced flexion of her thumb 2/2 pain. Denies recent illness, fevers/chills, DOZIRE, changes in vision, chest pain, SOB, abdominal pain, or changes in sensation 08/21/18 11:10 Past History - Past Medical History Allergies/Adverse Reactions: Allergies Allergy/AdvReac Type Severity Reaction Status Date / Time enalapril Allergy Severe ELEVATED Verified 10/05/17 07:43 B/P-NON EFFECTIVE nystatin Allergy Severe Swelling Verified 10/05/17 07:35 morphine AdvReac Severe Vomiting Verified 10/05/17 07:35 amiodarone AdvReac Intermediate Thyroid Verified 10/05/17 07:35 and eye problems amlodipine AdvReac Intermediate Leg edema Verified 10/05/17 07:35 Home Medications: Ambulatory Orders Albuterol Sulfate Inhaler - [Ventolin HFA Inhaler -] 1 - 2 inh PO ASDIR Cholecalciferol (Vitamin D3) [Vitamin D3] 2,000 unit PO DAILY 03/30/16 Atorvastatin Ca [Lipitor] 40 mg PO HS 01/27/17 Budesonide/Formeterol Fumarate [SYMBICORT 160/4.5mcg -] 1 inh PO ASDIR 01/27/17 Carvedilol [Coreg -] 25 mg PO BID #60 tablet 01/30/17 Losartan Potassium [Cozaar -] 50 mg PO BID 02/23/18 Acetaminophen [Tylenol] 650 mg PO TID PRN 7 Days tablet 03/08/18 Anemia: No Asthma: Yes Cancer: Yes (Left Breast) Cardiac Disorders: Yes (A-Fib) CVA: No COPD: Yes CHF: (?) Dementia: No Diabetes: No GI Disorders: Yes (HX OF DIVERTICULITIS) Disorders: No HTN: Yes Hypercholesterolemia: Yes Liver Disease: No Seizures: No Thyroid Disease: Yes (HYPO) - Surgical History Abdominal Surgery: Yes Appendectomy: Yes Cardiac Surgery: Yes (2 VALVE REPLACEMENT) Cholecystectomy: Yes Lung Surgery: No Neurologic Surgery: No Orthopedic Surgery: Yes (RT ARTHROSCOPIC SURGERY) - Suicide/Smoking/Psychosocial Hx Smoking Status: No Smoking History: Never smoked Years of Tobacco Use: 0 Have you smoked in the past 12 months: No Number of Cigarettes Smoked Daily: 0 If you are a former smoker, when did you quit?: 1985 Information on smoking cessation initiated: No Hx Alcohol Use: No Drug/Substance Use Hx: No Substance Use Type: None Hx Substance Use Treatment: No Review of Systems - Review of Systems Able to Perform ROS?: Yes Comments:: GENERAL/CONSTITUTIONAL: No fever or chills. No weakness HEAD, EYES, EARS, NOSE AND THROAT: No change in vision. No ear pain or discharge. No sore throat CARDIOVASCULAR: No chest pain or shortness of breath RESPIRATORY: Denies cough, hemoptysis GASTROINTESTINAL: No nausea, vomiting, diarrhea or constipation GENITOURINARY: No dysuria, frequency, or change in urination MUSCULOSKELETAL: per HPI SKIN: small abrasion on R elbow NEUROLOGIC: No headache, vertigo, loss of consciousness, or change in strength/ sensation ENDOCRINE: No increased thirst. No abnormal weight change HEMATOLOGIC/LYMPHATIC: +coumadin ALLERGIC/IMMUNOLOGIC: No hives or skin allergy 08/21/18 11:10 Is the patient limited Jordanian proficient: No *Physical Exam - Vital Signs Last Vital Signs Temp Pulse Resp BP Pulse Ox 97.8 F 111 H 20 162/101 H 100 08/21/18 10:38 08/21/18 10:38 08/21/18 10:38 08/21/18 10:38 08/21/18 10:38 - Physical Exam Comments: GENERAL: Awake, alert, and fully oriented, in no acute distress HEAD: No signs of trauma, normocephalic, atraumatic EYES: PERRLA, EOMI, sclera anicteric, conjunctiva clear ENT: Hearing grossly normal, nares patent, oropharynx clear without exudates. Moist mucosa LUNGS: No distress, speaks full sentences, clear to auscultation bilaterally HEART: Regular rate and rhythm, normal S1 and S2, no murmurs appreciated, peripheral pulses normal and equal bilaterally NEUROLOGICAL: Cranial nerves II through XII grossly intact. Normal speech, normal gait, no focal sensorimotor deficits SKIN: R posterior elbow abrasion RUE: Inspection: R lateral dorsal wrist hematoma; +snuffbox TTP; R olecranon point TTP with overlying swelling and abrasion; Compartments soft and compressible, pain within proportion Sensation: sensation present to light touch m/r/u n Motor: intact AIN/PIN/Ulnar in hand, w/ reduced flexion of thumb 2/2 pain; 3/5 Wrist flex/ext 2/2 pain; 4/5 Elbow flex/ext 2/2 pain with inability to fully extend elbow 2/2 pain; 5/5 Shoulder ABd,Flex Vascular: 2+ radial pulse palpated, BCR all fingers <2 sec. LUE: Inspection: No erythema or ecchymosis. No tenderness, no obvious abnormalities, no open wounds. Compartments soft and compressible, pain within proportion, no pain to passive stretch Sensation: sensation present to light touch m/r/u n Motor: intact AIN/PIN/Ulnar in hand; 5/5 Wrist flex/ext; 5/5 Elbow flex/ext; 5/ 5 Shoulder ABd,Flex Vascular: 2+ radial pulse palpated, BCR all fingers <2 sec. 08/21/18 11:11 Moderate Sedation - Procedure Monitoring Vital Signs: Procedure Monitoring Vital Signs Temperature 97.8 F 08/21/18 10:38 Pulse Rate 111 H 08/21/18 10:38 Respiratory Rate 20 08/21/18 10:38 Blood Pressure 162/101 H 08/21/18 10:38 O2 Sat by Pulse Oximetry (%) 100 08/21/18 10:38 ED Treatment Course - RADIOLOGY Radiology Studies Ordered: Category Date Time Status ELBOW-RIGHT [RAD] Stat Radiology 08/21/18 11:03 Ordered WRIST W/HAND-RIGHT* [RAD] Stat Radiology 08/21/18 11:03 Ordered Medical Decision Making - Medical Decision Making The patient is an 83F w/ a history of MVR, AVR (coumadin), HTN, HLD, and osteoporosis who presents for evaluation of R wrist and elbow pain s/p mechanical fall from standing ED Course R wrist, hand, and eblow XR Tylenol 975mg PO once for pain 08/21/18 11:18 R distal radius impaction fracture with likely R ulnar styloid fx R wrist splinted in R volar splint Sling provided Discharge instructions and return precautions given Plan for D/C w/ PCP and ortho f/u Patient in agreement and verbalized understanding Dispo: home 08/21/18 19:11 *DC/Admit/Observation/Transfer Diagnosis at time of Disposition: Right radial fracture Qualifiers: Encounter type: initial encounter Radius location: distal Fracture type: closed Fracture morphology: other fracture Qualified Code(s): S52.591A - Other fractures of lower end of right radius, initial encounter for closed fracture Fracture of right ulnar styloid Qualifiers: Encounter type: initial encounter Fracture type: closed Fracture alignment: nondisplaced Qualified Code(s): S52.614A - Nondisplaced fracture of right ulna styloid process, initial encounter for closed fracture - Discharge Dispostion Disposition: HOME Condition at time of disposition: Stable Decision to Admit order: No - Referrals Referrals: Garfield Osullivan MD [Staff Physician] - - Patient Instructions Printed Discharge Instructions: How to Use a Sling, DI for Distal Radius Fracture Additional Instructions: You were seen in the Emergency Department today for evaluation of a distal radius fracture. Please review the handout provided at discharge. Follow up with the orthopedic referral. Return to the Emergency Department if you develop changes in sensation, worsening pain, or new/concerning symptoms. - Post Discharge Activity
[2018-08-21] MEDS ORDERED: ACETAMINOPHEN 325 MG TABLET (FP) ONE (11:14)
[2018-08-21 11:19] VITALS: BMI 29.2
== END 2018-08-21 12:40 | disposition home or self-care (01) ==
LOC: FER 10:38
PROC: 2W3CX1Z Immobilization of Right Lower Arm using Splint (ICD-10-PCS; principal; 2018-08-21)
DX: S52.591A Other fractures of lower end of right radius, initial encounter for closed fracture (principal); S52.614A Nondisplaced fracture of right ulna styloid process, initial encounter for closed fracture; M81.0 Age-related osteoporosis without current pathological fracture; Z87.891 Personal history of nicotine dependence; E78.00 Pure hypercholesterolemia, unspecified; I10 Essential (primary) hypertension; E03.9 Hypothyroidism, unspecified; W18.09XA Striking against other object with subsequent fall, initial encounter; Y93.89 Activity, other specified; Y92.89 Other specified places as the place of occurrence of the external cause; Z79.01 Long term (current) use of anticoagulants; J44.9 Chronic obstructive pulmonary disease, unspecified; Z85.3 Personal history of malignant neoplasm of breast; I48.91 Unspecified atrial fibrillation
CPT/HCPCS: 73070-TC-RT-FY; 73110-TC-RT-FY; 73130-TC-RT-FY; 99282-25

== ENCOUNTER 2019-03-02 16:05 | Inpatient (IN) | payer OTHER ==
--- NOTE | 2019-03-02 16:23 | PDOC ---
History of Present Illness - General Chief Complaint: Back Pain Stated Complaint: BACK PAIN,CHILLS Time Seen by Provider: 03/02/19 16:23 History Source: Patient - History of Present Illness Initial Comments: 03/02/19 17:09 84 year old female with a PMH of Dementia -- presents s/p fall Past History - Past Medical History Allergies/Adverse Reactions: Allergies Allergy/AdvReac Type Severity Reaction Status Date / Time enalapril Allergy Severe ELEVATED Verified 10/05/17 07:43 B/P-NON EFFECTIVE nystatin Allergy Severe Swelling Verified 10/05/17 07:35 morphine AdvReac Severe Vomiting Verified 10/05/17 07:35 amiodarone AdvReac Intermediate Thyroid Verified 10/05/17 07:35 and eye problems amlodipine AdvReac Intermediate Leg edema Verified 10/05/17 07:35 Home Medications: Ambulatory Orders Albuterol Sulfate Inhaler - [Ventolin HFA Inhaler -] 1 - 2 inh PO ASDIR Cholecalciferol (Vitamin D3) [Vitamin D3] 2,000 unit PO DAILY 03/30/16 Atorvastatin Ca [Lipitor] 40 mg PO HS 01/27/17 Budesonide/Formeterol Fumarate [SYMBICORT 160/4.5mcg -] 1 inh PO ASDIR 01/27/17 Carvedilol [Coreg -] 25 mg PO BID #60 tablet 01/30/17 Losartan Potassium [Cozaar -] 50 mg PO BID 02/23/18 Acetaminophen [Tylenol] 650 mg PO TID PRN 7 Days tablet 03/08/18 Anemia: No Asthma: Yes Cancer: Yes (Left Breast) Cardiac Disorders: Yes (A-Fib) CVA: No COPD: Yes CHF: (?) Dementia: No Diabetes: No GI Disorders: Yes (HX OF DIVERTICULITIS) Disorders: No HTN: Yes Hypercholesterolemia: Yes Liver Disease: No Seizures: No Thyroid Disease: Yes (HYPO) - Surgical History Abdominal Surgery: Yes Appendectomy: Yes Cardiac Surgery: Yes (2 VALVE REPLACEMENT) Cholecystectomy: Yes Lung Surgery: No Neurologic Surgery: No Orthopedic Surgery: Yes (RT ARTHROSCOPIC SURGERY) - Suicide/Smoking/Psychosocial Hx Smoking Status: No Smoking History: Never smoked Years of Tobacco Use: 0 Have you smoked in the past 12 months: No Number of Cigarettes Smoked Daily: 0 If you are a former smoker, when did you quit?: 1985 Hx Alcohol Use: No Drug/Substance Use Hx: No Substance Use Type: None Hx Substance Use Treatment: No
--- NOTE | 2019-03-02 17:12 | PDOC ---
Attending Attestation - Resident Resident Name: Shahana Liang - ED Attending Attestation I have performed the following: I have examined & evaluated the patient, The case was reviewed & discussed with the resident, I agree w/resident's findings & plan, Exceptions are as noted - HPI HPI: 03/02/19 17:07 84 yo F with h/o aortic valve replacement, on coumadin, h/o breast CA s/p lumpectomy and left axillary node resection, htn, hld, here for AMS for 2 days, and low grade fever. also c/o low back pain, pt denies n/v but has had a decreased appetitie for two days. yesterday was in bed all day. today c/o generlzied weakness. no c/o urinary sxs. no diarrhea. - Physicial Exam PE: 03/02/19 17:09 awake alert dry mucous membranes. lungs clear bilaterally heart rrr no mrg abd soft mild right mid quadrant ttp, right cva tenderness. no midline spinal tenderness. ext wwp. nuero alert oriented x 2 ( disoriented to year), 5/5 all four ext. speech clear, memory mild impairment. skin warm and dry no rash. VF intact. - Medical Decision Making 03/02/19 17:11 84 yo F wit h/o avr, htn hld here wtih fever, confusion x 2 days, decreased appeititis, low back pain differential met, ua uti, pneuonia, electrolyte abnormality, pt nonfocal on exam. plan iv hydration labs fluids, cultures, ua urine cultures. cxr ct head. will likely require admission. Heart Score/ECG Review #1 General ECG Interpretation: Normal Intervals, No acute ischemic changes Compared to previous ECG there are: Other (afib with rvr, no st elevation or depression.) NIH Stroke Scale - Initial Evaluation Level of consciousness: Alert Ask patient the month and their age: Answers both correctly Ask patient to open & close eyes; make fist and let go: Obeys both correctly Best gaze (horizontal eye movement): Normal Visual field testing: No visual field loss Facial paresis (Show teeth/raise eyebrows/close eyes tight): Normal symmetrical movement Motor Function: Left Arm: Normal Motor Function: Right Arm: Normal (extends arm 90 (or 45) degrees for 10 seconds without drift Motor Function: Left Leg: Normal (extends leg 30 degrees for 5 seconds without drift) Motor Function: Right Leg: Normal (extends leg 30 degrees for 5 seconds without drift) Limb Ataxia: No ataxia Sensory(Use pinprick test arms,legs,trunk,face/side to side): Normal Best language (Describe picture, name items, read sentences): No Aphasia Dysarthria (read several words): Normal articulation Extinction and Inattention: No abnormality - Total Score NIH Stroke Scale Score: 0
[2019-03-02] MEDS ORDERED: SODIUM CHLORIDE 0.9% 1000 ML INFUS.BAG IV ONE (17:14)
[2019-03-02] MEDS ORDERED: ACETAMINOPHEN 1000 MG/100 ML VIAL (NON FORMULARY) IVPB ONE (17:14)
[2019-03-02] MEDS ORDERED: ACETAMINOPHEN INJECTION 100 ML IVPB ONE (17:16)
--- NOTE | 2019-03-02 17:16 | PDOC ---
History of Present Illness - General Chief Complaint: Back Pain Stated Complaint: BACK PAIN,CHILLS Time Seen by Provider: 03/02/19 16:23 History Source: Patient, Care Provider Exam Limitations: No Limitations - History of Present Illness Initial Comments: 03/02/19 17:15 84 yo F with h/o aortic valve replacement, on coumadin, h/o breast CA s/p lumpectomy and left axillary node resection, htn, hld, here for AMS for 2 days, and low grade fever. also c/o low back pain, pt denies n/v but has had a decreased appetitie for two days. yesterday was in bed all day. today c/o generlzied weakness. no c/o urinary sxs. no diarrhea. additional history provided by her son who she lives with at home. Past History - Past Medical History Allergies/Adverse Reactions: Allergies Allergy/AdvReac Type Severity Reaction Status Date / Time enalapril Allergy Severe ELEVATED Verified 10/05/17 07:43 B/P-NON EFFECTIVE nystatin Allergy Severe Swelling Verified 10/05/17 07:35 morphine AdvReac Severe Vomiting Verified 10/05/17 07:35 amiodarone AdvReac Intermediate Thyroid Verified 10/05/17 07:35 and eye problems amlodipine AdvReac Intermediate Leg edema Verified 10/05/17 07:35 Home Medications: Ambulatory Orders Albuterol Sulfate Inhaler - [Ventolin HFA Inhaler -] 1 - 2 inh PO ASDIR Cholecalciferol (Vitamin D3) [Vitamin D3] 2,000 unit PO DAILY 03/30/16 Atorvastatin Ca [Lipitor] 40 mg PO HS 01/27/17 Budesonide/Formeterol Fumarate [SYMBICORT 160/4.5mcg -] 1 inh PO ASDIR 01/27/17 Carvedilol [Coreg -] 25 mg PO BID #60 tablet 01/30/17 Losartan Potassium [Cozaar -] 50 mg PO BID 02/23/18 Acetaminophen [Tylenol] 650 mg PO TID PRN 7 Days tablet 03/08/18 Warfarin Sodium [Coumadin] 1 mg PO DAILY 03/02/19 Anemia: No Asthma: Yes Cancer: Yes (Left Breast) Cardiac Disorders: Yes (A-Fib) CVA: No COPD: Yes CHF: (?) Dementia: No Diabetes: No GI Disorders: Yes (HX OF DIVERTICULITIS) Disorders: No HTN: Yes Hypercholesterolemia: Yes Liver Disease: No Seizures: No Thyroid Disease: Yes (HYPO) - Surgical History Abdominal Surgery: Yes Appendectomy: Yes Cardiac Surgery: Yes (2 VALVE REPLACEMENT) Cholecystectomy: Yes Lung Surgery: No Neurologic Surgery: No Orthopedic Surgery: Yes (RT ARTHROSCOPIC SURGERY) - Immunization History Immunization Up to Date: Yes - Suicide/Smoking/Psychosocial Hx Smoking Status: No Smoking History: Never smoked Years of Tobacco Use: 0 Have you smoked in the past 12 months: No Number of Cigarettes Smoked Daily: 0 If you are a former smoker, when did you quit?: 1985 Information on smoking cessation initiated: No Hx Alcohol Use: No Drug/Substance Use Hx: No Substance Use Type: None Hx Substance Use Treatment: No *Physical Exam - Vital Signs Last Vital Signs Temp Pulse Resp BP Pulse Ox 103.5 F H 107 H 20 133/68 94 L 03/02/19 16:06 03/02/19 16:06 03/02/19 16:06 03/02/19 16:06 03/02/19 16:06 - Physical Exam Comments: 03/02/19 17:16 awake alert dry mucous membranes. lungs clear bilaterally heart rrr no mrg abd soft mild right mid quadrant ttp, right cva tenderness. no midline spinal tenderness. ext wwp. nuero alert oriented x 2 ( disoriented to year), 5/5 all four ext. speech clear, memory mild impairment. skin warm and dry no rash. VF intact. ED Treatment Course - LABORATORY CBC & Chemistry Diagram: 03/02/19 16:48 03/02/19 16:48 - RADIOLOGY Radiology Studies Ordered: Category Date Time Status CHEST X-RAY PORTABLE* [RAD] Stat Radiology 03/02/19 17:14 Ordered Medical Decision Making - Medical Decision Making 03/02/19 17:17 4 yo F wit h/o avr, htn hld here wtih fever, confusion x 2 days, decreased appeititis, low back pain differential met, ua uti, pneuonia, electrolyte abnormality, pt nonfocal on exam. plan iv hydration labs fluids, cultures, ua urine cultures. cxr ct head. will likely require admission. *DC/Admit/Observation/Transfer Diagnosis at time of Disposition: Altered mental status, UTI (urinary tract infection) - Discharge Dispostion Decision to Admit order: Yes - Referrals - Patient Instructions - Post Discharge Activity
[2019-03-02 17:25] LABS: BASO % 0.4 % (0-2.0); HEMATOCRIT 37.9 % (32.4-45.2); HEMOGLOBIN 12.2 GM/dl (10.7-15.3); MCH 28.8 pg (25.7-33.7); MCHC 32.1 g/dl (32.0-36.0); MEAN CELL VOLUME 89.7 fl (80-96); MEAN PLT VOLUME 8.8 fl (7.5-11.1); MONO % 7.9 % (3.8-10.2); NEUT % 85.7 % (42.8-82.8); PLATELET COUNT 143 K/MM3 (134-434); RBC 4.23 M/mm3 (3.60-5.2); RDW 14.4 % (11.6-15.6); WHITE BLOOD COUNT 6.6 K/mm3 (4.0-10.8)
[2019-03-02 17:48] LABS: ALBUMIN 3.6 g/dl (3.4-5.0); BILIRUBIN,TOTAL 1.6 mg/dl (0.2-1); CREATININE 1.3 mg/dl (0.55-1.3); TOT PROT 6.5 g/dl (6.4-8.2)
[2019-03-02 17:49] LABS: POTASSIUM 4.1 mmol/L (3.5-5.1)
[2019-03-02] MEDS ORDERED: CEFTRIAXONE 1,000 MG in DEXTROSE 5%-WATER - 50 ML IVPB ONE (18:46)
[2019-03-02 18:47] LABS: EPITHELIAL CELLS FEW /hpf
[2019-03-02] MEDS ORDERED: ACETAMINOPHEN 325 MG TABLET (FP) PO PRN (19:05)
[2019-03-02] MEDS ORDERED: ONDANSETRON 4 MG/2 ML VIAL IVPUSH PRN (19:11)
[2019-03-02] MEDS ORDERED: ALBUTEROL SO4 8 GM HFA INHALER IH PRN (19:15)
[2019-03-02] MEDS ORDERED: cefTRIAXone SODIUM 1 GM VIAL ONE (19:15)
[2019-03-02] MEDS: SODIUM CHLORIDE 1,000 ML IV SCH (19:27)
[2019-03-02] MEDS ORDERED: FAMOTIDINE 20 MG/50 ML IVPB 20 MG/50 ML MG IVPB SCH (20:00)
[2019-03-02] MEDS ORDERED: FAMOTIDINE 20 MG/50 ML IVPB 20 MG/50 ML MG IVPB ONE (22:00)
[2019-03-02] MEDS: ATORVASTATIN CA 40 MG TABLET (FP) PO SCH (22:27)
[2019-03-02] MEDS: CARVEDILOL 25 MG TABLET (FP) PO SCH (22:42)
[2019-03-02 23:09] VITALS: BMI 26.9
[2019-03-03] MEDS: BUDESONIDE/FORMETEROL FUMARATE 160/4.5 mcg INHALER IH SCH ×3 (03:43→21:34)
[2019-03-03] MEDS: LEVOTHYROXINE NA 50 MCG TABLET (FP) PO SCH (06:03)
--- NOTE | 2019-03-03 07:41 | DS ---
Physical Exam: SUBJECTIVE: Patient seen and examined OBJECTIVE: Vital Signs Period Temp Pulse Resp BP Sys/Vasquez Pulse Ox Last 24 Hr 98.4 F-103.5 F 84-109 18-20 98-133/55-68 94-98 PHYSICAL EXAM GENERAL: The patient is awake, alert, and fully oriented, in no acute distress. HEAD: Normal with no signs of trauma. EYES: PERRL, extraocular movements intact, sclera anicteric, conjunctiva clear. ENT: Ears normal, nares patent, oropharynx clear without exudates, moist mucous membranes. NECK: Trachea midline, full range of motion, supple. LUNGS: Breath sounds equal, clear to auscultation bilaterally, no wheezes, no crackles, no accessory muscle use. HEART: Regular rate and rhythm, S1, S2 without murmur, rub or gallop. ABDOMEN: Soft, nontender, nondistended, normoactive bowel sounds, no guarding, no rebound, no hepatosplenomegaly, no masses. EXTREMITIES: 2+ pulses, warm, well-perfused, no edema. NEUROLOGICAL: Cranial nerves II through XII grossly intact. Normal speech, gait not observed. PSYCH: Normal mood, normal affect. SKIN: Warm, dry, normal turgor, no rashes or lesions noted. LABS Laboratory Results - last 24 hr 03/02/19 03/02/19 03/02/19 16:48 16:48 18:15 WBC 6.6 RBC 4.23 Hgb 12.2 Hct 37.9 MCV 89.7 MCH 28.8 MCHC 32.1 RDW 14.4 Plt Count 143 MPV 8.8 Absolute Neuts (auto) 5.7 Neutrophils % 85.7 H Lymphocytes % 6.0 L Monocytes % 7.9 Eosinophils % 0.0 Basophils % 0.4 Sodium 135 L Potassium 4.1 Chloride 102 Carbon Dioxide 23 Anion Gap 10 BUN 25.0 H Creatinine 1.3 Est GFR (CKD-EPI)AfAm 43.63 Est GFR (CKD-EPI)NonAf 37.64 Random Glucose 121 H Lactic Acid Calcium 8.0 L Total Bilirubin 1.6 H AST 27 ALT 14 Alkaline Phosphatase 87 Total Protein 6.5 Albumin 3.6 Urine Color Yellow Urine Appearance Slightly Urine pH 5.0 Urine Protein 2+ H Urine Glucose (UA) Negative Urine Ketones Negative Urine Blood 2+ H Urine Nitrite Negative Urine Bilirubin Negative Urine Urobilinogen 0.2 Ur Leukocyte Esterase Trace H Urine RBC 5-10 Urine WBC 20-20 Ur Transition Epith Cell Few Urine Bacteria Few 03/02/19 20:25 WBC RBC Hgb Hct MCV MCH MCHC RDW Plt Count MPV Absolute Neuts (auto) Neutrophils % Lymphocytes % Monocytes % Eosinophils % Basophils % Sodium Potassium Chloride Carbon Dioxide Anion Gap BUN Creatinine Est GFR (CKD-EPI)AfAm Est GFR (CKD-EPI)NonAf Random Glucose Lactic Acid 1.1 Calcium Total Bilirubin AST ALT Alkaline Phosphatase Total Protein Albumin Urine Color Urine Appearance Urine pH Urine Protein Urine Glucose (UA) Urine Ketones Urine Blood Urine Nitrite Urine Bilirubin Urine Urobilinogen Ur Leukocyte Esterase Urine RBC Urine WBC Ur Transition Epith Cell Urine Bacteria HOSPITAL COURSE: Date of Admission:03/02/19 Date of Discharge: 03/03/19 Minutes to complete discharge: 35 Discharge Summary Reason For Visit: FEVER,ALTERED MENTAL STATUS Current Active Problems Altered mental status (Acute) UTI (urinary tract infection) (Acute) - Instructions - Home Medications Comprehensive Discharge Medication List: Ambulatory Orders Albuterol Sulfate Inhaler - [Ventolin HFA Inhaler -] 1 - 2 inh PO ASDIR Cholecalciferol (Vitamin D3) [Vitamin D3] 2,000 unit PO DAILY 03/30/16 Atorvastatin Ca [Lipitor] 40 mg PO HS 01/27/17 Budesonide/Formeterol Fumarate [SYMBICORT 160/4.5mcg -] 1 inh PO ASDIR 01/27/17 Carvedilol [Coreg -] 25 mg PO BID #60 tablet 01/30/17 Losartan Potassium [Cozaar -] 50 mg PO BID 02/23/18 Acetaminophen [Tylenol] 650 mg PO TID PRN 7 Days tablet 03/08/18 Warfarin Sodium [Coumadin] 1 mg PO DAILY 03/02/19 This patient is new to me today: Yes Date on this admission: 03/03/19 Emergency Visit: Yes ED Registration Date: 03/02/19 Care time: The patient presented to the Emergency Department on the above date and was hospitalized for further evaluation of their emergent condition. Critical Care patient: No
--- NOTE | 2019-03-03 08:45 | HP ---
CHIEF COMPLAINT: Fever, confusion PCP: Dr. Tidwell Cardiology: Dr. Myrick HISTORY OF PRESENT ILLNESS: 81 year-old female with a PMH Of HTN, HLD, paroxysmal afib s/p ablations x 2 last one 2 years ago on coumadin, aortic and mitral tissue valve replacements, hypothyrodism, asthma/COPD, diverticulitis, and left breast cancer s/p lumpectomy and chemotherapy. Presented to the ED for evaluation of fever, confusion, low back pain, and mental confusion x 2 days. Patient reports several days of chills and mild nausea. She also reports right-sided flank pain for about a week. She denies dysuria, urgency, but endorses frequency. She denies abdominal pain. She had one episode of loose stool this morning. No blood in stool or urine. ER course was notable for: (1) T103.5, p107, BP 98/61 (2) UA: pyuria (3) Ceftriaxone x 1; NS x 1L Recent Travel: No PAST MEDICAL HISTORY: Hypertension Hyperlipidemia Atrial fibrillation Hypothyroidism Asthma/COPD Diverticulitis Left breast cancer PAST SURGICAL HISTORY: Aortic and mitral tissue valve replacements Social History: Smoking: former Alcohol: no Drugs: no Family History: lives with son and his family Allergies enalapril Allergy (Severe, Verified 10/05/17 07:43) ELEVATED B/P-NON EFFECTIVE nystatin Allergy (Severe, Verified 10/05/17 07:35) Swelling morphine Adverse Reaction (Severe, Verified 10/05/17 07:35) Vomiting amiodarone Adverse Reaction (Intermediate, Verified 10/05/17 07:35) Thyroid and eye problems amlodipine Adverse Reaction (Intermediate, Verified 10/05/17 07:35) Leg edema HOME MEDICATIONS: Home Medications Medication Instructions Recorded Albuterol Sulfate Inhaler - 1 - 2 inh PO ASDIR 03/30/16 [Ventolin HFA Inhaler -] Cholecalciferol (Vitamin D3) 2,000 unit PO DAILY 03/30/16 [Vitamin D3] Atorvastatin Ca [Lipitor] 40 mg PO HS 01/27/17 Budesonide/Formeterol Fumarate 1 inh PO ASDIR 01/27/17 [SYMBICORT 160/4.5mcg -] Carvedilol [Coreg -] 25 mg PO BID #60 tablet 01/30/17 Losartan Potassium [Cozaar -] 50 mg PO BID 02/23/18 Acetaminophen [Tylenol] 650 mg PO TID PRN 7 Days tablet 03/08/18 Warfarin Sodium [Coumadin] 1 mg PO DAILY 03/02/19 REVIEW OF SYSTEMS CONSTITUTIONAL: +chills, nausea Absent: fever, chills, diaphoresis, generalized weakness, malaise, loss of appetite, weight change HEENT: Absent: rhinorrhea, nasal congestion, throat pain, throat swelling, difficulty swallowing, mouth swelling, ear pain, eye pain, visual changes CARDIOVASCULAR: Absent: chest pain, syncope, palpitations, irregular heart rate, lightheadedness , peripheral edema RESPIRATORY: Absent: cough, shortness of breath, dyspnea with exertion, orthopnea, wheezing, stridor, hemoptysis GASTROINTESTINAL: Absent: abdominal pain, abdominal distension, nausea, vomiting, diarrhea, constipation, melena, hematochezia GENITOURINARY: Absent: dysuria, frequency, urgency, hesitancy, hematuria, flank pain, genital pain MUSCULOSKELETAL: Absent: myalgia, arthralgia, joint swelling, back pain, neck pain SKIN: Absent: rash, itching, pallor HEMATOLOGIC/IMMUNOLOGIC: Absent: easy bleeding, easy bruising, lymphadenopathy, frequent infections ENDOCRINE: Absent: unexplained weight gain, unexplained weight loss, heat intolerance, cold intolerance NEUROLOGIC: +mental status changes Absent: headache, focal weakness or paresthesias, dizziness, unsteady gait, seizure, mental status changes, bladder or bowel incontinence PSYCHIATRIC: Absent: anxiety, depression, suicidal or homicidal ideation, hallucinations. PHYSICAL EXAMINATION Vital Signs - 24 hr 03/02/19 03/02/19 03/02/19 16:06 20:33 20:44 Temperature 103.5 F H 99.3 F 98.7 F Pulse Rate 107 H 100 H Pulse Rate [ 84 Right] Respiratory 20 20 18 Rate Blood Pressure 133/68 98/61 Blood Pressure 101/55 L [Right] O2 Sat by Pulse 94 L 94 L 96 Oximetry (%) 03/03/19 03/03/19 01:46 05:58 Temperature 98.4 F 99.7 F H Pulse Rate 94 H 109 H Pulse Rate [ Right] Respiratory 18 18 Rate Blood Pressure 112/57 L 116/63 Blood Pressure [Right] O2 Sat by Pulse 98 97 Oximetry (%) GENERAL: Awake, alert, and fully oriented, in no acute distress. HEAD: Normal with no signs of trauma. EYES: Pupils equal, round and reactive to light, extraocular movements intact, sclera anicteric, conjunctiva clear. No lid lag. EARS, NOSE, THROAT: Ears normal, nares patent, oropharynx clear without exudates. Moist mucous membranes. NECK: Normal range of motion, supple without lymphadenopathy, JVD, or masses. LUNGS: Breath sounds equal, clear to auscultation bilaterally. No wheezes, and no crackles. No accessory muscle use. HEART: Irregular, S1, S2 ABDOMEN: Soft, nontender, not distended UPPER EXTREMITIES: 2+ pulses, warm, well-perfused. No cyanosis. No clubbing. No peripheral edema. LOWER EXTREMITIES: 2+ pulses, warm, well-perfused. No calf tenderness. No peripheral edema. NEUROLOGICAL: Cranial nerves II-XII intact. Normal speech. Laboratory Results - last 24 hr 03/02/19 03/02/19 03/02/19 16:48 16:48 18:15 WBC 6.6 RBC 4.23 Hgb 12.2 Hct 37.9 MCV 89.7 MCH 28.8 MCHC 32.1 RDW 14.4 Plt Count 143 MPV 8.8 Absolute Neuts (auto) 5.7 Neutrophils % 85.7 H Lymphocytes % 6.0 L Monocytes % 7.9 Eosinophils % 0.0 Basophils % 0.4 Sodium 135 L Potassium 4.1 Chloride 102 Carbon Dioxide 23 Anion Gap 10 BUN 25.0 H Creatinine 1.3 Est GFR (CKD-EPI)AfAm 43.63 Est GFR (CKD-EPI)NonAf 37.64 Random Glucose 121 H Lactic Acid Calcium 8.0 L Total Bilirubin 1.6 H AST 27 ALT 14 Alkaline Phosphatase 87 Total Protein 6.5 Albumin 3.6 Urine Color Yellow Urine Appearance Slightly Urine pH 5.0 Urine Protein 2+ H Urine Glucose (UA) Negative Urine Ketones Negative Urine Blood 2+ H Urine Nitrite Negative Urine Bilirubin Negative Urine Urobilinogen 0.2 Ur Leukocyte Esterase Trace H Urine RBC 5-10 Urine WBC 20-20 Ur Transition Epith Cell Few Urine Bacteria Few 03/02/19 20:25 WBC RBC Hgb Hct MCV MCH MCHC RDW Plt Count MPV Absolute Neuts (auto) Neutrophils % Lymphocytes % Monocytes % Eosinophils % Basophils % Sodium Potassium Chloride Carbon Dioxide Anion Gap BUN Creatinine Est GFR (CKD-EPI)AfAm Est GFR (CKD-EPI)NonAf Random Glucose Lactic Acid 1.1 Calcium Total Bilirubin AST ALT Alkaline Phosphatase Total Protein Albumin Urine Color Urine Appearance Urine pH Urine Protein Urine Glucose (UA) Urine Ketones Urine Blood Urine Nitrite Urine Bilirubin Urine Urobilinogen Ur Leukocyte Esterase Urine RBC Urine WBC Ur Transition Epith Cell Urine Bacteria ASSESSMENT/PLAN 81 year-old female with a PMH Of HTN, HLD, afib on coumadin, aortic and mitral tissue valve replacements, hypothyrodism, asthma/COPD, diverticulitis, and left breast cancer s/p lumpectomy and chemotherapy. Presented to the ED for evaluation of fever, confusion, low back pain, and mental confusion x 2 days. Admitted for sepsis likely secondary to UTI. Found to be bacteremic. Sepsis likely secondary to UTI Metabolic encephalopathy GPC bacteremia --confusion per family prior to admission, improved, back to baseline --T103.5, p107, BP 98/61, pyuria on admission --switch to Zosyn (day #1) --received 1L NS in ED; given another 1L bolus now --recent dental work, will get echo --ID following Hypertension --low BP on admission --hold home losartan and HCTZ Atrial fibrillation with RVR --serial ECGs in afib with RVR, continue carvedilol for rate control --INR 2.86 therapeutic, continue coumadin 1mg Hyperlipidemia --continue Lipitor Aortic and mitral tissue valve replacements Diastolic dysfunction --01/29/17 echo: LV EF normal, impaired LV relaxation; RV normal; mild BLAE; prosthetic mitral valve well-seated, mild MR; mild to moderate TR; moderate pHTN ; aortic prosthetic valve, moderate AI; moderate PI --hold HCTZ due to sepsis, low BP Asthma/COPD --stable --continue Symbicort, duonebs Hypothyroidism --continue levothyroxine F/E/N Fluids: NS @ 75mL/hr Electrolytes: replete as indicated Nutrition: regular DVT prophylaxis: INR therapeutic, on warfarin; oob, ambulation Dispo: continues to require inpatient care. Full Code. Visit type - Emergency Visit Emergency Visit: Yes ED Registration Date: 03/02/19 Care time: The patient presented to the Emergency Department on the above date and was hospitalized for further evaluation of their emergent condition. - New Patient This patient is new to me today: Yes Date on this admission: 03/03/19 - Critical Care Critical Care patient: No
[2019-03-03] MEDS ORDERED: PT OWN MED DRAWER 7, Y5N ONE ×3 (09:34→21:33)
[2019-03-03] MEDS ORDERED: SODIUM CHLORIDE 1,000 ML IV STA (09:44)
[2019-03-03] MEDS: CARVEDILOL 25 MG TABLET (FP) PO SCH ×2 (09:52→21:34)
[2019-03-03] MEDS ORDERED: LOSARTAN POTASSIUM 50 MG TABLET (FP) PO SCH (10:00)
[2019-03-03] MEDS ORDERED: CHOLECALCIFEROL (VIT D3) 1,000 UNIT (25 MCG) TABLET PO SCH (10:00)
[2019-03-03] MEDS ORDERED: CEFTRIAXONE 1 G/50 ML PREMIX 50 ML IVPB SCH (10:00)
[2019-03-03 10:02] LABS: EOS % 0.4 % (0-4.5); HEMOGLOBIN 11.6 GM/dl (10.7-15.3)
[2019-03-03 10:07] LABS: BASO % 0.2 % (0-2.0); LYMPH % 10.3 % (8-40); MCH 29.5 pg (25.7-33.7); MCHC 33.2 g/dl (32.0-36.0); MEAN PLT VOLUME 7.8 fl (7.5-11.1); MONO % 7.9 % (3.8-10.2); NEUT % 81.2 % (42.8-82.8); PLATELET COUNT 114 K/MM3 (134-434); RBC 3.93 M/mm3 (3.60-5.2); RDW 14.9 % (11.6-15.6)
[2019-03-03 10:14] LABS: INR 2.86 (0.82-1.09); PROTHROMBIN TIME (PATIENT) 31.4 SEC (10.2-13.0)
[2019-03-03 10:16] LABS: ALBUMIN 3.2 g/dl (3.4-5.0); BILIRUBIN,TOTAL 1.2 mg/dl (0.2-1); CALCIUM 7.4 mg/dl (8.5-10); CREATININE 1.1 mg/dl (0.55-1.3); POTASSIUM 3.4 mmol/L (3.5-5.1); TOT PROT 5.9 g/dl (6.4-8.2)
--- NOTE | 2019-03-03 13:24 | EKG ---
Test Reason : Blood Pressure : / mmHG Vent. Rate : 100 BPM Atrial Rate : 068 BPM P-R Int : 000 ms QRS Dur : 112 ms QT Int : 366 ms P-R-T Axes : 000 -11 032 degrees QTc Int : 472 ms ATRIAL FIBRILLATION INCOMPLETE RIGHT BUNDLE BRANCH BLOCK INFERIOR INFARCT (CITED ON OR BEFORE 02-MAR-2019) CANNOT RULE OUT ANTERIOR INFARCT (CITED ON OR BEFORE 02-MAR-2019) ABNORMAL ECG WHEN COMPARED WITH ECG OF 02-MAR-2019 16:41, NONSPECIFIC T WAVE ABNORMALITY HAS REPLACED INVERTED T WAVES IN ANTERIOR LEADS Confirmed by UBALDO MILES MD ([id number]) on 03/03/2019 1:23:55 PM Referred By: JARRELL Confirmed By:UBALDO MILES MD
--- NOTE | 2019-03-03 13:27 | EKG ---
Test Reason : Blood Pressure : / mmHG Vent. Rate : 111 BPM Atrial Rate : 163 BPM P-R Int : 000 ms QRS Dur : 114 ms QT Int : 344 ms P-R-T Axes : 000 -04 014 degrees QTc Int : 467 ms ATRIAL FIBRILLATION WITH RAPID VENTRICULAR RESPONSE WITH PREMATURE VENTRICULAR OR ABERRANTLY CONDUCTED COMPLEXES LOW VOLTAGE QRS INCOMPLETE RIGHT BUNDLE BRANCH BLOCK INFERIOR INFARCT , AGE UNDETERMINED CANNOT RULE OUT ANTERIOR INFARCT , AGE UNDETERMINED ABNORMAL ECG Confirmed by JD REYES, UBALDO ([id number]) on 03/03/2019 1:26:30 PM Referred By: DR TINOCO Confirmed By:UBALDO MILES MD
[2019-03-03] MEDS ORDERED: PIPERACILLIN/TAZOB 4.5 GM 4.5 GM in DEXTROSE 5%-WATER 100 ML IVPB SCH (14:30)
[2019-03-03] MEDS ORDERED: PIPERACILLIN/TAZOBACTAM 4.5 GM VIAL IVPB ONE ×2 (14:59→17:44)
[2019-03-03] MEDS ORDERED: DEXTROSE 5%-WATER 100 ML IVPB ONE ×2 (14:59→17:44)
--- NOTE | 2019-03-03 16:33 | CON.ID ---
Consult Consult Specialty:: infectious diseases Referred by:: Carol Reason for Consultation:: sepsis,bacteremia - History of Present Illness Chief Complaint: weakness and shaking chills History of Present Illness: 81 year-old female with a PMH Of HTN, HLD, paroxysmal afib s/p ablations x 2 last one 2 years ago on coumadin, aortic and mitral tissue valve replacements, hypothyrodism, asthma/COPD, diverticulitis, and left breast cancer s/p lumpectomy and chemotherapy. Presented to the ED for evaluation of fever, confusion, low back pain, and mental confusion x 2 days. Patient reports several days of chills and mild nausea. She also reports right-sided flank pain for about a week. She denies dysuria, urgency, but endorses frequency. She denies abdominal pain. She had one episode of loose stool this morning. No blood in stool or urine. patient also mentions that couple of days about 10 days back she got her teth cleaned and artificial caps placed on them - History Source History Provided By: Patient Limitations to Obtaining History: No Limitations - Past Medical History Cardio/Vascular: Yes: AFIB, HTN, Hyperlipdemia Pulmonary: Yes: COPD Gastrointestinal: Yes: Diverticulitis Endocrine: Yes: Hypothyroidism - Past Surgical History Past Surgical History: Yes: Appendectomy, Valve Replacement (2 valves replaced open heart surgery 2012 cardioversion 2013 and 2016 HTN hospitalized 2017) - Alcohol/Substance Use Hx Alcohol Use: No - Smoking History Smoking history: Never smoked Have you smoked in the past 12 months: No Aproximately how many cigarettes per day: 0 If you are a former smoker, when did you quit?: 1985 Home Medications - Allergies Allergies/Adverse Reactions: Allergies Allergy/AdvReac Type Severity Reaction Status Date / Time enalapril Allergy Severe ELEVATED Verified 10/05/17 07:43 B/P-NON EFFECTIVE nystatin Allergy Severe Swelling Verified 10/05/17 07:35 morphine AdvReac Severe Vomiting Verified 10/05/17 07:35 amiodarone AdvReac Intermediate Thyroid Verified 10/05/17 07:35 and eye problems amlodipine AdvReac Intermediate Leg edema Verified 10/05/17 07:35 - Home Medications Home Medications: Ambulatory Orders Albuterol Sulfate Inhaler - [Ventolin HFA Inhaler -] 1 - 2 inh PO ASDIR Cholecalciferol (Vitamin D3) [Vitamin D3] 2,000 unit PO DAILY 03/30/16 Atorvastatin Ca [Lipitor] 40 mg PO HS 01/27/17 Budesonide/Formeterol Fumarate [SYMBICORT 160/4.5mcg -] 1 inh PO ASDIR 01/27/17 Carvedilol [Coreg -] 25 mg PO BID #60 tablet 01/30/17 Losartan Potassium [Cozaar -] 50 mg PO BID 02/23/18 Acetaminophen [Tylenol] 650 mg PO TID PRN 7 Days tablet 03/08/18 Warfarin Sodium [Coumadin] 1 mg PO DAILY 03/02/19 Family Disease History - Family Disease History Family Disease History: CA: Grandparent (mat GM uterine 70), Mother (uterine ca 68) Review of Systems - Review of Systems Constitutional: reports: Chills, Fever Eyes: reports: No Symptoms HENT: reports: No Symptoms Neck: reports: No Symptoms Cardiovascular: reports: No Symptoms Respiratory: reports: No Symptoms Gastrointestinal: reports: No Symptoms Genitourinary: reports: Flank Pain Musculoskeletal: reports: No Symptoms Integumentary: reports: No Symptoms Neurological: reports: Change in LOC Endocrine: reports: No Symptoms Hematology/Lymphatic: reports: No Symptoms Psychiatric: reports: No Symptoms Physical Exam Vital Signs: Vital Signs Temperature 98.1 F 03/03/19 14:23 Pulse Rate 100 H 03/03/19 14:23 Respiratory Rate 03/03/19 14:23 Blood Pressure 109/65 03/03/19 14:23 O2 Sat by Pulse Oximetry (%) 95 03/03/19 14:23 Constitutional: Yes: Well Nourished, No Distress, Calm HENT: Yes: Atraumatic, Normocephalic Neck: Yes: Supple, Trachea Midline Cardiovascular: Yes: Pulse Irregular Respiratory: Yes: Regular, CTA Bilaterally Gastrointestinal: Yes: Normal Bowel Sounds, Soft Musculoskeletal: Yes: WNL Extremities: Yes: WNL Neurological: Yes: Alert, Oriented Labs: CBC, BMP 03/03/19 09:55 03/03/19 09:55 Imaging - Results Chest X-ray: Report Reviewed, Image Reviewed X-ray: Report Reviewed, Image Reviewed Cat Scan: Report Reviewed, Image Reviewed Assessment/Plan 81 year-old female with a PMH Of HTN, HLD, afib on coumadin, aortic and mitral tissue valve replacements, hypothyrodism, asthma/COPD, diverticulitis, and left breast cancer s/p lumpectomy and chemotherapy. Presented to the ED for evaluation of fever, confusion, low back pain, and mental confusion x 2 days. Admitted for sepsis likely secondary to UTI. Sepsis Metabolic encephalopathy Hypertension Atrial fibrillation with RVR Hyperlipidemia Aortic and mitral tissue valve replacements Diastolic dysfunction Asthma/COPD gm positive bacteremia plan abx consider getting an echo await for identification of the organism will repeat blood cx tomorrow close watch will see how patient does
[2019-03-03] MEDS ORDERED: ALBUTEROL SO4 2.5/IPRATROPIUM 0.5 INH SOL 3 ML VIAL.NEB. NEB PRN (17:33)
[2019-03-03] MEDS: PIPERACILLIN/TAZOB 4.5 GM 4.5 GM in DEXTROSE 5%-WATER 100 ML IVPB SCH (18:13)
[2019-03-03] MEDS: WARFARIN NA 1 MG TABLET (FP) PO SCH (18:13)
[2019-03-03] MEDS: SODIUM CHLORIDE 1,000 ML IV SCH (18:14)
[2019-03-03] MEDS: ATORVASTATIN CA 40 MG TABLET (FP) PO SCH (21:34)
[2019-03-04] MEDS ORDERED: PIPERACILLIN/TAZOBACTAM 4.5 GM VIAL IVPB ONE ×2 (01:19→17:08)
[2019-03-04] MEDS ORDERED: DEXTROSE 5%-WATER 100 ML IVPB ONE ×2 (01:19→17:08)
[2019-03-04] MEDS: PIPERACILLIN/TAZOB 4.5 GM 4.5 GM in DEXTROSE 5%-WATER 100 ML IVPB SCH ×3 (01:21→17:17)
[2019-03-04] MEDS: LEVOTHYROXINE NA 50 MCG TABLET (FP) PO SCH (06:49)
--- NOTE | 2019-03-04 10:16 | PN ---
Progress Note, Physician History of Present Illness: Pt seen and examined, chart reviewed, all labs/imaging results noted. Pt states she is feeling better. Denies chills, CP/SOB, abd pain/n/v/d, dysuria/ hematuria. Still has mild Rt back/flank pain but only with movement. No other specific complaints. Afebrile over 24H. - Current Medication List Current Medications: Active Medications Acetaminophen (Tylenol -) 650 mg PO Q8H PRN PRN Reason: MILD PAIN Last Admin: 03/03/19 06:06 Dose: 650 mg Albuterol Sulfate (Ventolin Hfa Inhaler -) 2 puff IH Q6H PRN PRN Reason: SHORTNESS OF BREATH/WHEEZING Albuterol/Ipratropium (Duoneb -) 1 amp NEB Q6H PRN PRN Reason: SHORTNESS OF BREATH Last Admin: 03/03/19 18:14 Dose: 1 amp Atorvastatin Calcium (Lipitor -) 40 mg PO HS KATHRYN Last Admin: 03/03/19 21:34 Dose: 40 mg Budesonide/Formoterol Fumarate (Symbicort 160/4.5mcg -) 2 puff IH BID KATHRYN Last Admin: 03/03/19 21:34 Dose: 2 puff Carvedilol (Coreg -) 25 mg PO BID KATHRYN Last Admin: 03/03/19 21:34 Dose: 25 mg Sodium Chloride (Normal Saline -) 1,000 mls @ 75 mls/hr IV ASDIR KATHRYN Last Admin: 03/03/19 18:14 Dose: 75 mls/hr Piperacillin Sod/Tazobactam (Sod 4.5 gm/ Dextrose) 100 mls @ 200 mls/hr IVPB Q8H-IV KATHRYN; Protocol Last Admin: 03/04/19 01:21 Dose: 200 mls/hr Levothyroxine Sodium (Synthroid -) 50 mcg PO AM KATHRYN Last Admin: 03/04/19 06:49 Dose: 50 mcg Ondansetron HCl (Zofran Injection) 4 mg IVPUSH Q6H PRN PRN Reason: NAUSEA Warfarin Sodium (Coumadin -) 1 mg PO DAILY@1800 KATHRYN Last Admin: 03/03/19 18:13 Dose: 1 mg - Objective Vital Signs: Vital Signs Temperature 98.3 F 03/04/19 07:34 Pulse Rate 106 H 03/04/19 07:34 Respiratory Rate 18 03/04/19 07:34 Blood Pressure 131/78 03/04/19 07:34 O2 Sat by Pulse Oximetry (%) 95 03/04/19 07:34 Constitutional: Yes: No Distress, Calm Cardiovascular: Yes: Regular Rate and Rhythm Respiratory: Yes: CTA Bilaterally Gastrointestinal: Yes: Normal Bowel Sounds, Soft Genitourinary: Yes: WNL Musculoskeletal: Yes: Back Pain (Rt back) Extremities: Yes: WNL Integumentary: Yes: WNL Neurological: Yes: Alert, Oriented Labs: CBC, BMP 03/03/19 09:55 03/03/19 09:55 INR, PTT INR 2.86 (0.82-1.09) H 03/03/19 09:55 Microbiology 03/02/19 19:00 Blood - Peripheral Venous Blood Culture - Preliminary Alpha Hemolytic Streptococcus 03/02/19 18:21 Blood - Peripheral Venous Blood Culture - Preliminary Alpha Hemolytic Streptococcus Urine cultures pending - ....Imaging Chest X-ray: Report Reviewed X-ray: Report Reviewed Cat Scan: Report Reviewed Problem List - Problems (1) Altered mental status Code(s): R41.82 - ALTERED MENTAL STATUS, UNSPECIFIED (2) UTI (urinary tract infection) Code(s): N39.0 - URINARY TRACT INFECTION, SITE NOT SPECIFIED (3) A-fib Code(s): I48.91 - UNSPECIFIED ATRIAL FIBRILLATION (4) Breast cancer, left breast Code(s): C50.912 - MALIGNANT NEOPLASM OF UNSPECIFIED SITE OF LEFT FEMALE BREAST Qualifiers: Breast location: upper outer quadrant of breast Estrogen receptor status: negative Patient sex: female Qualified Code(s): C50.412 - Malignant neoplasm of upper-outer quadrant of left female breast; Z17.1 - Estrogen receptor negative status [ER-] (5) COPD (chronic obstructive pulmonary disease) Code(s): J44.9 - CHRONIC OBSTRUCTIVE PULMONARY DISEASE, UNSPECIFIED (6) HLD (hyperlipidemia) Code(s): E78.5 - HYPERLIPIDEMIA, UNSPECIFIED (7) Hypertensive urgency Code(s): I16.0 - HYPERTENSIVE URGENCY (8) Hypothyroidism Code(s): E03.9 - HYPOTHYROIDISM, UNSPECIFIED Assessment/Plan Streptococcal Bacteremia UTI Hx of AV/MV replacement Hx of Nephrolithiasis AFIB HTN HLD Hx of Nephrolithiasis Hx of Breast CA s/p lumpectomy/LN resection -- imaging/lab results noted -- Blood cx : alpha hemolytic Strep -- F/U Urine CX, repeat Blood culture results - pending -- Continue current IV antibiotics for now -- Echocardiogram ordered Pt is afebrile, alert, without confusion at this time Continue monitor vitals
[2019-03-04] MEDS ORDERED: PT OWN MED DRAWER 7, Y5N ONE ×2 (10:22→21:50)
[2019-03-04] MEDS: CARVEDILOL 25 MG TABLET (FP) PO SCH ×2 (10:28→21:56)
[2019-03-04] MEDS: BUDESONIDE/FORMETEROL FUMARATE 160/4.5 mcg INHALER IH SCH ×2 (10:28→21:56)
--- NOTE | 2019-03-04 10:40 | PN ---
Physical Exam: SUBJECTIVE: Patient seen and examined, Denies cp, sob, palpitations, abdominal pain, N/V/D, reports chronic urinary frequency, no dysuria or hematuria. OBJECTIVE: Vital Signs Period Temp Pulse Resp BP Sys/Vasquez Pulse Ox Last 24 Hr 97.5 F-98.5 F 70-110 16-20 98-136/64-78 95-99 GENERAL: The patient is awake, alert, and fully oriented, in no acute distress. HEAD: Normal with no signs of trauma. EYES: PERRL, extraocular movements intact, sclera anicteric, conjunctiva clear. No ptosis. ENT: Ears normal, nares patent, oropharynx clear without exudates, moist mucous membranes. NECK: Trachea midline, full range of motion, supple. LUNGS: Breath sounds equal, clear to auscultation bilaterally, no wheezes, no crackles, no accessory muscle use. HEART: Irregular without murmur, rub or gallop. ABDOMEN: Soft, non-tender, non-distended, normoactive bowel sounds, no guarding , no rebound, no hepatosplenomegaly, no masses. EXTREMITIES: 2+ pulses, warm, well-perfused, no edema, Rt CVCA tenderness NEUROLOGICAL: Cranial nerves II through XII grossly intact. Normal speech, gait not observed. PSYCH: Normal mood, normal affect. SKIN: Warm, dry, normal turgor, no rashes or lesions noted Active Medications Generic Name Dose Route Start Last Admin Trade Name Freq PRN Reason Stop Dose Admin Acetaminophen 650 mg 03/02/19 19:05 03/03/19 06:06 Tylenol - PO 650 mg Q8H PRN Administration MILD PAIN Albuterol Sulfate 2 puff 03/02/19 19:15 Ventolin Hfa Inhaler - IH Q6H PRN SHORTNESS OF BREATH/WHEEZING Albuterol/Ipratropium 1 amp 03/03/19 17:33 03/03/19 18:14 Duoneb - NEB 1 amp Q6H PRN Administration SHORTNESS OF BREATH Atorvastatin Calcium 40 mg 03/02/19 22:00 03/03/19 21:34 Lipitor - PO 40 mg HS KATHRYN Administration Budesonide/Formoterol Fumarate 2 puff 03/02/19 22:00 03/04/19 10:28 Symbicort 160/4.5mcg - IH 2 puff BID KATHRYN Administration Carvedilol 25 mg 03/02/19 22:00 03/04/19 10:28 Coreg - PO 25 mg BID KATHRYN Administration Sodium Chloride 1,000 mls @ 75 mls/hr 03/02/19 19:15 03/03/19 18:14 Normal Saline - IV 75 mls/hr ASDIR KATHRYN Administration Piperacillin Sod/Tazobactam 100 mls @ 200 mls/hr 03/03/19 18:00 03/04/19 10: 30 Sod 4.5 gm/ Dextrose IVPB 200 mls/hr Q8H-IV KATHRYN Administration Protocol Levothyroxine Sodium 50 mcg 03/03/19 07:00 03/04/19 06:49 Synthroid - PO 50 mcg AM KATHRYN Administration Ondansetron HCl 4 mg 03/02/19 19:11 Zofran Injection IVPUSH Q6H PRN NAUSEA Warfarin Sodium 1 mg 03/03/19 18:00 03/03/19 18:13 Coumadin - PO 1 mg DAILY@1800 KATHRYN Administration ASSESSMENT/PLAN: 81 year-old female with a PMH Of HTN, HLD, afib on coumadin, aortic and mitral tissue valve replacements, hypothyrodism, asthma/COPD, diverticulitis, and left breast cancer s/p lumpectomy and chemotherapy. Presented to the ED for evaluation of fever, confusion, low back pain, and mental confusion x 2 days. Admitted for sepsis likely secondary to UTI. Found to be bacteremic. *Sepsis likely secondary to UTI Metabolic encephalopathy --T103.5, p107, BP 98/61, pyuria on admission -GPC bacteremia - Rpt BC pending -ID following -switched to Zosyn (day #2) - afebrile with no leukocytosis - normal lactic acid - Urine culture pending -recent dental work, will get echo -mental status back to normal *Hypertension-low BP on admission - Bp improved now - will hold home losartan and HCTZ and monitor BP *Atrial fibrillation with RVR-HR in low 100's - EKG: afib with RVR 110 -continue carvedilol for rate control -INR 2.86 therapeutic, continue Coumadin 1mg *Hyperlipidemia -continue Lipitor *Aortic and mitral tissue valve replacements Diastolic dysfunction -01/29/17 echo: LV EF normal, impaired LV relaxation; RV normal; mild BLAE; prosthetic mitral valve well-seated, mild MR; mild to moderate TR; moderate pHTN ; aortic prosthetic valve, moderate AI; moderate PI -hold HCTZ due to sepsis, low BP *Asthma/COPD-stable -continue Symbicort, duonebs *Hypothyroidism -continue levothyroxine -will check TFT's F/E/N Fluids: NS @ 75mL/hr Electrolytes: replete as indicated Nutrition: regular DVT prophylaxis: INR therapeutic, on warfarin; oob, ambulation Dispo: continues to require inpatient care. Full Code. Visit type - Emergency Visit Emergency Visit: Yes ED Registration Date: 03/02/19 Care time: The patient presented to the Emergency Department on the above date and was hospitalized for further evaluation of their emergent condition. - New Patient This patient is new to me today: No - Critical Care Critical Care patient: No
[2019-03-04 10:48] LABS: BASO % 0.4 % (0-2.0); EOS % 1.3 % (0-4.5); HEMATOCRIT 33.5 % (32.4-45.2); HEMOGLOBIN 10.8 GM/dl (10.7-15.3); LYMPH % 12.5 % (8-40); MCH 28.7 pg (25.7-33.7); MCHC 32.2 g/dl (32.0-36.0); MEAN CELL VOLUME 89.1 fl (80-96); MEAN PLT VOLUME 8.9 fl (7.5-11.1); MONO % 9.8 % (3.8-10.2); PLATELET COUNT 110 K/MM3 (134-434); RBC 3.76 M/mm3 (3.60-5.2); RDW 14.6 % (11.6-15.6); WHITE BLOOD COUNT 4.4 K/mm3 (4.0-10.8)
[2019-03-04 10:54] LABS: INR 2.56 (0.82-1.09); PROTHROMBIN TIME (PATIENT) 28.1 SEC (10.2-13.0)
[2019-03-04 10:56] LABS: ALBUMIN 2.8 g/dl (3.4-5.0); BILIRUBIN,TOTAL 0.7 mg/dl (0.2-1); CALCIUM 7.3 mg/dl (8.5-10); CREATININE 1.1 mg/dl (0.55-1.3); POTASSIUM 3.4 mmol/L (3.5-5.1); TOT PROT 5.5 g/dl (6.4-8.2)
[2019-03-04] MEDS ORDERED: POTASSIUM CHLORIDE TABS 20 MEQ TABLET.ER (FP) PO ONE (12:08)
[2019-03-04] MEDS: CALCIUM 250MG/VIT-D 125 UNITS 1 COMBO TABLET PO SCH (14:28)
[2019-03-04] MEDS: WARFARIN NA 1 MG TABLET (FP) PO SCH (17:17)
[2019-03-04] MEDS ORDERED: PIPERACILLIN/TAZOB 4.5 GM 4.5 GM in DEXTROSE 5%-WATER 100 ML IVPB SCH (18:00)
[2019-03-04] MEDS: ATORVASTATIN CA 40 MG TABLET (FP) PO SCH (21:56)
[2019-03-05] MEDS ORDERED: PIPERACILLIN/TAZOBACTAM 4.5 GM VIAL IVPB ONE ×2 (00:12→09:18)
[2019-03-05] MEDS ORDERED: DEXTROSE 5%-WATER 100 ML IVPB ONE ×2 (00:12→09:18)
[2019-03-05] MEDS: PIPERACILLIN/TAZOB 4.5 GM 4.5 GM in DEXTROSE 5%-WATER 100 ML IVPB SCH ×2 (01:14→09:45)
[2019-03-05] MEDS: LEVOTHYROXINE NA 50 MCG TABLET (FP) PO SCH (07:23)
[2019-03-05] MEDS ORDERED: PT OWN MED DRAWER 7, Y5N ONE ×2 (09:18→21:18)
[2019-03-05] MEDS: BUDESONIDE/FORMETEROL FUMARATE 160/4.5 mcg INHALER IH SCH ×2 (09:44→21:38)
[2019-03-05] MEDS: CALCIUM 250MG/VIT-D 125 UNITS 1 COMBO TABLET PO SCH (09:45)
[2019-03-05] MEDS: CARVEDILOL 25 MG TABLET (FP) PO SCH ×2 (09:45→21:38)
[2019-03-05 09:49] LABS: INR 2.32 (0.82-1.09); PROTHROMBIN TIME (PATIENT) 25.6 SEC (10.2-13.0)
[2019-03-05 09:52] LABS: CALCIUM 7.8 mg/dl (8.5-10); POTASSIUM 3.9 mmol/L (3.5-5.1)
--- NOTE | 2019-03-05 10:50 | PN ---
Physical Exam: SUBJECTIVE: Patient seen and examined. Pt reports feeling better, denies cp, sob , palpitations,chills,cough,abdominal pain, N/V/D or urianry symptoms.states Rt flank pain improved. OBJECTIVE: Vital Signs Period Temp Pulse Resp BP Sys/Vasquez Pulse Ox Last 24 Hr 97.8 F-98.9 F 97-112 18-20 114-150/62-80 95-100 GENERAL: The patient is awake, alert, and fully oriented, in no acute distress. HEAD: Normal with no signs of trauma. EYES: PERRL, extraocular movements intact, sclera anicteric, conjunctiva clear. No ptosis. ENT: Ears normal, nares patent, oropharynx clear without exudates, moist mucous membranes. NECK: Trachea midline, full range of motion, supple. LUNGS: Breath sounds equal, clear to auscultation bilaterally, no wheezes, no crackles, no accessory muscle use. HEART: Regular rate and rhythm, S1, S2 without murmur, rub or gallop. ABDOMEN: Soft, nontender, nondistended, normoactive bowel sounds, no guarding, no rebound, no hepatosplenomegaly, no masses. EXTREMITIES: 2+ pulses, warm, well-perfused, no edema. NEUROLOGICAL: Cranial nerves II through XII grossly intact. Normal speech, gait not observed. PSYCH: Normal mood, normal affect. SKIN: Warm, dry, normal turgor, no rashes or lesions noted Laboratory Results - last 24 hr 03/04/19 03/04/19 03/04/19 07:50 07:50 07:50 WBC 4.4 RBC 3.76 Hgb 10.8 Hct 33.5 MCV 89.1 MCH 28.7 MCHC 32.2 RDW 14.6 Plt Count 110 L MPV 8.9 Absolute Neuts (auto) 3.3 Neutrophils % 76.0 Lymphocytes % 12.5 Monocytes % 9.8 Eosinophils % 1.3 Basophils % 0.4 PT with INR 28.1 H INR 2.56 H Sodium 139 Potassium 3.4 L Chloride 113 H Carbon Dioxide 22 Anion Gap 4 L BUN 20.0 H Creatinine 1.1 Est GFR (CKD-EPI)AfAm 53.39 Est GFR (CKD-EPI)NonAf 46.07 Random Glucose 94 Calcium 7.3 L Total Bilirubin 0.7 AST 21 ALT 14 Alkaline Phosphatase 73 Total Protein 5.5 L Albumin 2.8 L TSH 03/04/19 03/05/19 03/05/19 07:50 08:00 08:00 WBC RBC Hgb Hct MCV MCH MCHC RDW Plt Count MPV Absolute Neuts (auto) Neutrophils % Lymphocytes % Monocytes % Eosinophils % Basophils % PT with INR 25.6 H INR 2.32 H Sodium 139 Potassium 3.9 Chloride 109 H Carbon Dioxide 24 Anion Gap 6 L BUN 17.0 Creatinine 1.0 Est GFR (CKD-EPI)AfAm 59.91 Est GFR (CKD-EPI)NonAf 51.69 Random Glucose 84 Calcium 7.8 L Total Bilirubin AST ALT Alkaline Phosphatase Total Protein Albumin TSH 2.37 Active Medications Generic Name Dose Route Start Last Admin Trade Name Freq PRN Reason Stop Dose Admin Acetaminophen 650 mg 03/02/19 19:05 03/03/19 06:06 Tylenol - PO 650 mg Q8H PRN Administration MILD PAIN Albuterol Sulfate 2 puff 03/02/19 19:15 Ventolin Hfa Inhaler - IH Q6H PRN SHORTNESS OF BREATH/WHEEZING Albuterol/Ipratropium 1 amp 03/03/19 17:33 03/03/19 18:14 Duoneb - NEB 1 amp Q6H PRN Administration SHORTNESS OF BREATH Atorvastatin Calcium 40 mg 03/02/19 22:00 03/04/19 21:56 Lipitor - PO 40 mg HS KATHRYN Administration Budesonide/Formoterol Fumarate 2 puff 03/02/19 22:00 03/05/19 09:44 Symbicort 160/4.5mcg - IH 2 puff BID KATHRYN Administration Calcium/Vitamin D 1 tab 03/04/19 13:45 03/05/19 09:45 Oscal 250 Mg+D - PO 1 tab DAILY KATHRYN Administration Carvedilol 25 mg 03/02/19 22:00 03/05/19 09:45 Coreg - PO 25 mg BID KATHRYN Administration Piperacillin Sod/Tazobactam 100 mls @ 200 mls/hr 03/03/19 18:00 03/05/19 09: 45 Sod 4.5 gm/ Dextrose IVPB 200 mls/hr Q8H-IV KATHRYN Administration Protocol Levothyroxine Sodium 50 mcg 03/03/19 07:00 03/05/19 07:23 Synthroid - PO 50 mcg AM KATHRYN Administration Ondansetron HCl 4 mg 03/02/19 19:11 Zofran Injection IVPUSH Q6H PRN NAUSEA Warfarin Sodium 1 mg 03/03/19 18:00 03/04/19 17:17 Coumadin - PO 1 mg DAILY@1800 KATHRYN Administration Microbiology 03/02/19 19:00 Blood - Peripheral Venous Blood Culture - Final Streptococcus Sanguis 03/02/19 18:15 Urine - Urine Clean Catch Urine Culture - Final Escherichia Coli 03/04/19 07:50 Blood - Peripheral Venous Blood Culture - Preliminary NO GROWTH OBTAINED AFTER 24 HOURS, INCUBATION TO CONTINUE FOR 4 DAYS. 03/04/19 07:45 Blood - Peripheral Venous Blood Culture - Preliminary NO GROWTH OBTAINED AFTER 24 HOURS, INCUBATION TO CONTINUE FOR 4 DAYS. 03/02/19 18:21 Blood - Peripheral Venous Blood Culture - Preliminary Streptococcus Sanguinis ASSESSMENT/PLAN: 81 year-old female with a PMH Of HTN, HLD, afib on coumadin, aortic and mitral tissue valve replacements, hypothyrodism, asthma/COPD, diverticulitis, and left breast cancer s/p lumpectomy and chemotherapy. Presented to the ED for evaluation of fever, confusion, low back pain, and mental confusion x 2 days. Admitted for sepsis likely secondary to UTI. Found to be bacteremic. *Streptococcal Bacteremia Metabolic encephalopathy - max T103.5, p107, BP 98/61, pyuria on admission -ID following -switched to Zosyn (day #3) - remains afebrile with no leukocytosis - Rpt BC prreliminary negative - normal lactic acid - Urine culture + for Eoli -recent dental work, this month -will get echo -mental status back to normal *Hypertension-low BP on admission - Bp stable now - will resume on Losartan and Coreg -will hold HCTZ and monitor BP *Atrial fibrillation with RVR-HR in low 100's - EKG: afib with RVR 110 -continue carvedilol for rate control -INR therapeutic, continue Coumadin 1mg *Hyperlipidemia -continue Lipitor *Aortic and mitral tissue valve replacements Diastolic dysfunction -01/29/17 echo: LV EF normal, impaired LV relaxation; RV normal; mild BLAE; prosthetic mitral valve well-seated, mild MR; mild to moderate TR; moderate pHTN ; aortic prosthetic valve, moderate AI; moderate PI -hold HCTZ due to sepsis, low BP *Asthma/COPD-stable -continue Symbicort, duonebs *Hypothyroidism -continue levothyroxine -TSH- WNL F/E/N Fluids: NS @ 75mL/hr Electrolytes: replete as indicated Nutrition: regular DVT prophylaxis: INR therapeutic, on warfarin; oob, ambulation Dispo: continues to require inpatient care. Full Code. Visit type - Emergency Visit Emergency Visit: Yes ED Registration Date: 03/02/19 Care time: The patient presented to the Emergency Department on the above date and was hospitalized for further evaluation of their emergent condition. - New Patient This patient is new to me today: No - Critical Care Critical Care patient: No
--- NOTE | 2019-03-05 11:01 | PN ---
Progress Note, Physician History of Present Illness: Alert, afebrile and states she feels well. No complaints at this time. - Current Medication List Current Medications: Active Medications Acetaminophen (Tylenol -) 650 mg PO Q8H PRN PRN Reason: MILD PAIN Last Admin: 03/03/19 06:06 Dose: 650 mg Albuterol Sulfate (Ventolin Hfa Inhaler -) 2 puff IH Q6H PRN PRN Reason: SHORTNESS OF BREATH/WHEEZING Albuterol/Ipratropium (Duoneb -) 1 amp NEB Q6H PRN PRN Reason: SHORTNESS OF BREATH Last Admin: 03/03/19 18:14 Dose: 1 amp Atorvastatin Calcium (Lipitor -) 40 mg PO HS [facility] Last Admin: 03/04/19 21:56 Dose: 40 mg Budesonide/Formoterol Fumarate (Symbicort 160/4.5mcg -) 2 puff IH BID [facility] Last Admin: 03/05/19 09:44 Dose: 2 puff Calcium/Vitamin D (Oscal 250 Mg+D -) 1 tab PO DAILY [facility] Last Admin: 03/05/19 09:45 Dose: 1 tab Carvedilol (Coreg -) 25 mg PO BID [facility] Last Admin: 03/05/19 09:45 Dose: 25 mg Ceftriaxone Sodium (Ceftriaxone 2 Gm-D5w Bag) 2 gm in 50 mls @ 100 mls/hr IVPB DAILY [facility]; Protocol Levothyroxine Sodium (Synthroid -) 50 mcg PO AM [facility] Last Admin: 03/05/19 07:23 Dose: 50 mcg Losartan Potassium (Cozaar -) 50 mg PO BID [facility] Ondansetron HCl (Zofran Injection) 4 mg IVPUSH Q6H PRN PRN Reason: NAUSEA Warfarin Sodium (Coumadin -) 1 mg PO DAILY@1800 [facility] Last Admin: 03/04/19 17:17 Dose: 1 mg - Objective Vital Signs: Vital Signs Temperature 97.8 F 03/05/19 09:43 Pulse Rate 110 H 03/05/19 09:43 Respiratory Rate 20 03/05/19 09:43 Blood Pressure 135/80 03/05/19 09:43 O2 Sat by Pulse Oximetry (%) 98 03/05/19 09:43 Constitutional: Yes: No Distress, Calm Cardiovascular: Yes: Regular Rate and Rhythm Respiratory: Yes: CTA Bilaterally Gastrointestinal: Yes: Normal Bowel Sounds, Soft Genitourinary: Yes: WNL Musculoskeletal: Yes: WNL Extremities: Yes: WNL Edema: No Integumentary: Yes: WNL Neurological: Yes: Alert, Oriented Psychiatric: Yes: Alert Labs: CBC, BMP 03/04/19 07:50 03/05/19 08:00 INR, PTT INR 2.32 (0.82-1.09) H 03/05/19 08:00 Microbiology 03/02/19 19:00 Blood - Peripheral Venous Blood Culture - Final Streptococcus Sanguis 03/02/19 18:15 Urine - Urine Clean Catch Urine Culture - Final Escherichia Coli 03/04/19 07:50 Blood - Peripheral Venous Blood Culture - Preliminary NO GROWTH OBTAINED AFTER 24 HOURS, INCUBATION TO CONTINUE FOR 4 DAYS. 03/04/19 07:45 Blood - Peripheral Venous Blood Culture - Preliminary NO GROWTH OBTAINED AFTER 24 HOURS, INCUBATION TO CONTINUE FOR 4 DAYS. 03/02/19 18:21 Blood - Peripheral Venous Blood Culture - Preliminary Streptococcus Sanguinis Problem List - Problems (1) Altered mental status Code(s): R41.82 - ALTERED MENTAL STATUS, UNSPECIFIED (2) UTI (urinary tract infection) Code(s): N39.0 - URINARY TRACT INFECTION, SITE NOT SPECIFIED (3) A-fib Code(s): I48.91 - UNSPECIFIED ATRIAL FIBRILLATION (4) Breast cancer, left breast Code(s): C50.912 - MALIGNANT NEOPLASM OF UNSPECIFIED SITE OF LEFT FEMALE BREAST Qualifiers: Qualified Code(s): C50.412 - Malignant neoplasm of upper-outer quadrant of left female breast; Z17.1 - Estrogen receptor negative status [ER-] (5) COPD (chronic obstructive pulmonary disease) Code(s): J44.9 - CHRONIC OBSTRUCTIVE PULMONARY DISEASE, UNSPECIFIED (6) HLD (hyperlipidemia) Code(s): E78.5 - HYPERLIPIDEMIA, UNSPECIFIED (7) Hypertensive urgency Code(s): I16.0 - HYPERTENSIVE URGENCY (8) Hypothyroidism Code(s): E03.9 - HYPOTHYROIDISM, UNSPECIFIED Assessment/Plan Streptococcus sanguinous Bacteremia - likely odontogenic source r/o endocarditis Possible UTI Hx of AV/MV replacement Hx of Nephrolithiasis AFIB HTN HLD Hx of Nephrolithiasis Hx of Breast CA s/p lumpectomy/LN resection -- pt had dental procedures done on 6/3/19 and 02/27/19 -- d/c Zosyn - switch to Ceftriaxone -- repeat blood cultures no growth so far -- Echocardiogram ordered Pt is alert and afebrile, clinically responding Continue monitor vitals
[2019-03-05] MEDS ORDERED: CEFTRIAXONE 2 GM-D5W BAG 2 GM/50 ML BAG IVPB SCH (11:15)
[2019-03-05] MEDS: WARFARIN NA 1 MG TABLET (FP) PO SCH (17:57)
[2019-03-05] MEDS: LOSARTAN POTASSIUM 50 MG TABLET (FP) PO SCH (21:38)
[2019-03-05] MEDS: ATORVASTATIN CA 40 MG TABLET (FP) PO SCH (21:38)
[2019-03-06] MEDS: LEVOTHYROXINE NA 50 MCG TABLET (FP) PO SCH (06:41)
[2019-03-06 08:31] LABS: INR 1.98 (0.82-1.09); PROTHROMBIN TIME (PATIENT) 21.9 SEC (10.2-13.0)
[2019-03-06] MEDS ORDERED: PT OWN MED DRAWER 7, Y5N ONE (10:36)
[2019-03-06] MEDS ORDERED: DEXTROSE 5%-WATER - 50 ML IVPB ONE (10:37)
[2019-03-06] MEDS: LOSARTAN POTASSIUM 50 MG TABLET (FP) PO SCH ×2 (10:45→21:56)
[2019-03-06] MEDS: CARVEDILOL 25 MG TABLET (FP) PO SCH ×2 (10:45→21:56)
[2019-03-06] MEDS: CALCIUM 250MG/VIT-D 125 UNITS 1 COMBO TABLET PO SCH (10:45)
[2019-03-06] MEDS: BUDESONIDE/FORMETEROL FUMARATE 160/4.5 mcg INHALER IH SCH ×2 (10:46→21:56)
[2019-03-06] MEDS: CEFTRIAXONE 2 GM in DEXTROSE 5%-WATER - 50 ML IVPB SCH (10:46)
--- NOTE | 2019-03-06 11:50 | PN ---
Progress Note, Physician History of Present Illness: patient doing well no new issues - Current Medication List Current Medications: Active Medications Acetaminophen (Tylenol -) 650 mg PO Q8H PRN PRN Reason: MILD PAIN Last Admin: 03/03/19 06:06 Dose: 650 mg Albuterol Sulfate (Ventolin Hfa Inhaler -) 2 puff IH Q6H PRN PRN Reason: SHORTNESS OF BREATH/WHEEZING Albuterol/Ipratropium (Duoneb -) 1 amp NEB Q6H PRN PRN Reason: SHORTNESS OF BREATH Last Admin: 03/03/19 18:14 Dose: 1 amp Atorvastatin Calcium (Lipitor -) 40 mg PO HS [facility] Last Admin: 03/05/19 21:38 Dose: 40 mg Budesonide/Formoterol Fumarate (Symbicort 160/4.5mcg -) 2 puff IH BID [facility] Last Admin: 03/06/19 10:46 Dose: 2 puff Calcium/Vitamin D (Oscal 250 Mg+D -) 1 tab PO DAILY [facility] Last Admin: 03/06/19 10:45 Dose: 1 tab Carvedilol (Coreg -) 25 mg PO BID [facility] Last Admin: 03/06/19 10:45 Dose: 25 mg Ceftriaxone Sodium 2 gm/ (Dextrose) 50 mls @ 100 mls/hr IVPB DAILY [facility]; Protocol Last Admin: 03/06/19 10:46 Dose: 100 mls/hr Levothyroxine Sodium (Synthroid -) 50 mcg PO AM [facility] Last Admin: 03/06/19 06:41 Dose: 50 mcg Losartan Potassium (Cozaar -) 50 mg PO BID [facility] Last Admin: 03/06/19 10:45 Dose: 50 mg Ondansetron HCl (Zofran Injection) 4 mg IVPUSH Q6H PRN PRN Reason: NAUSEA Warfarin Sodium (Coumadin -) 1 mg PO DAILY@1800 [facility] Last Admin: 03/05/19 17:57 Dose: 1 mg - Objective Vital Signs: Vital Signs Temperature 98.3 F 03/06/19 07:09 Pulse Rate 56 L 03/06/19 07:09 Respiratory Rate 03/06/19 07:09 Blood Pressure 156/72 03/06/19 07:09 O2 Sat by Pulse Oximetry (%) 96 03/06/19 07:09 Constitutional: Yes: No Distress, Calm Cardiovascular: Yes: Regular Rate and Rhythm Respiratory: Yes: Regular, CTA Bilaterally Gastrointestinal: Yes: Normal Bowel Sounds, Soft Musculoskeletal: Yes: WNL Extremities: Yes: WNL Neurological: Yes: Alert, Oriented Psychiatric: Yes: Alert, Oriented Labs: CBC, BMP 03/04/19 07:50 03/05/19 08:00 INR, PTT INR 1.98 (0.82-1.09) H 03/06/19 07:04 Assessment/Plan Problem List - Problems (1) Altered mental status Code(s): R41.82 - ALTERED MENTAL STATUS, UNSPECIFIED (2) UTI (urinary tract infection) Code(s): N39.0 - URINARY TRACT INFECTION, SITE NOT SPECIFIED (3) A-fib Code(s): I48.91 - UNSPECIFIED ATRIAL FIBRILLATION (4) Breast cancer, left breast Code(s): C50.912 - MALIGNANT NEOPLASM OF UNSPECIFIED SITE OF LEFT FEMALE BREAST Qualifiers: Qualified Code(s): C50.412 - Malignant neoplasm of upper-outer quadrant of left female breast; Z17.1 - Estrogen receptor negative status [ER-] (5) COPD (chronic obstructive pulmonary disease) Code(s): J44.9 - CHRONIC OBSTRUCTIVE PULMONARY DISEASE, UNSPECIFIED (6) HLD (hyperlipidemia) Code(s): E78.5 - HYPERLIPIDEMIA, UNSPECIFIED (7) Hypertensive urgency Code(s): I16.0 - HYPERTENSIVE URGENCY (8) Hypothyroidism Code(s): E03.9 - HYPOTHYROIDISM, UNSPECIFIED plan we will continue abx await for echo report rest as per the team
--- NOTE | 2019-03-06 13:55 | PN ---
Physical Exam: SUBJECTIVE: Patient seen and examined sitting on edge of bed. Feels better. OBJECTIVE: Vital Signs Period Temp Pulse Resp BP Sys/Vasquez Pulse Ox Last 24 Hr 98.1 F-98.7 F 56-114 18-19 143-156/72-82 96-97 GENERAL: Awake, alert, and fully oriented, in no acute distress. LUNGS: Breath sounds equal, clear to auscultation bilaterally. No wheezes, and no crackles. No accessory muscle use. HEART: Irregular, S1, S2 ABDOMEN: Soft, nontender, not distended UPPER EXTREMITIES: 2+ pulses, warm, well-perfused. No cyanosis. No clubbing. No peripheral edema. LOWER EXTREMITIES: 2+ pulses, warm, well-perfused. No calf tenderness. No peripheral edema. NEUROLOGICAL: Cranial nerves II-XII intact. Normal speech. Steady gait. Laboratory Results - last 24 hr 03/06/19 07:04 PT with INR 21.9 H INR 1.98 H Active Medications Generic Name Dose Route Start Last Admin Trade Name Freq PRN Reason Stop Dose Admin Acetaminophen 650 mg 03/02/19 19:05 03/03/19 06:06 Tylenol - PO 650 mg Q8H PRN Administration MILD PAIN Albuterol Sulfate 2 puff 03/02/19 19:15 Ventolin Hfa Inhaler - IH Q6H PRN SHORTNESS OF BREATH/WHEEZING Albuterol/Ipratropium 1 amp 03/03/19 17:33 03/03/19 18:14 Duoneb - NEB 1 amp Q6H PRN Administration SHORTNESS OF BREATH Atorvastatin Calcium 40 mg 03/02/19 22:00 03/05/19 21:38 Lipitor - PO 40 mg HS KATHRYN Administration Budesonide/Formoterol Fumarate 2 puff 03/02/19 22:00 03/06/19 10:46 Symbicort 160/4.5mcg - IH 2 puff BID KATHRYN Administration Calcium/Vitamin D 1 tab 03/04/19 13:45 03/06/19 10:45 Oscal 250 Mg+D - PO 1 tab DAILY KATHRYN Administration Carvedilol 25 mg 03/02/19 22:00 03/06/19 10:45 Coreg - PO 25 mg BID KATHRYN Administration Ceftriaxone Sodium 2 gm/ 50 mls @ 100 mls/hr 03/05/19 11:15 03/06/19 10:46 Dextrose IVPB 100 mls/hr DAILY KATHRYN Administration Protocol Levothyroxine Sodium 50 mcg 03/03/19 07:00 03/06/19 06:41 Synthroid - PO 50 mcg AM KATHRYN Administration Losartan Potassium 50 mg 03/05/19 22:00 03/06/19 10:45 Cozaar - PO 50 mg BID KATHRYN Administration Ondansetron HCl 4 mg 03/02/19 19:11 Zofran Injection IVPUSH Q6H PRN NAUSEA Warfarin Sodium 1 mg 03/03/19 18:00 03/05/19 17:57 Coumadin - PO 1 mg DAILY@1800 KATHRYN Administration ASSESSMENT/PLAN 81 year-old female with a PMH Of HTN, HLD, afib on coumadin, aortic and mitral tissue valve replacements, hypothyrodism, asthma/COPD, diverticulitis, and left breast cancer s/p lumpectomy and chemotherapy. Presented to the ED for evaluation of fever, confusion, low back pain, and mental confusion x 2 days. Admitted for sepsis likely secondary to UTI. Found to be bacteremic. Sepsis likely secondary to UTI, resolved Metabolic encephalopathy, resolved Strep sanguids bacteremia E.coli UTI --confusion per family prior to admission, improved, back to baseline --T103.5, p107, BP 98/61, pyuria on admission --today is day #4 on IV antibiotics; continue ceftriaxone --recent dental work; Echo: no sign of vegetation --ID following Hypertension --continue losartan, resume HCTZ Atrial fibrillation with RVR --serial ECGs in afib continue carvedilol for rate control --INR 1.98, increase coumadin to 2mg daily Hyperlipidemia --continue Lipitor Aortic and mitral tissue valve replacements Diastolic dysfunction --01/29/17 echo: LV EF normal, impaired LV relaxation; RV normal; mild BLAE; prosthetic mitral valve well-seated, mild MR; mild to moderate TR; moderate pHTN ; aortic prosthetic valve, moderate AI; moderate PI --resume HCTZ Asthma/COPD --stable --continue Symbicort, duonebs Hypothyroidism --continue levothyroxine F/E/N Fluids: PO intake adequate Electrolytes: replete as indicated Nutrition: regular DVT prophylaxis: on coumadin, increase to 2mg daily Dispo: continues to require inpatient care. Full Code. Visit type - Emergency Visit Emergency Visit: Yes ED Registration Date: 03/02/19 Care time: The patient presented to the Emergency Department on the above date and was hospitalized for further evaluation of their emergent condition. - New Patient This patient is new to me today: No - Critical Care Critical Care patient: No
--- NOTE | 2019-03-06 14:01 | ECHO ---
Name: FELIPE MENSAH Exam:Adult Echocardiogram Study Date: 03/06/2019 11:33 AM Age: 84 yrs Reason For Study: R/O Endocarditis Height: 60 in Weight: 148 lb BSA: 1.6 m2 MMode/2D Measurements & Calculations IVSd: 0.93 cm Ao root diam: 2.6 cm LVIDd: 4.0 cm LVIDs: 2.6 cm LVPWd: 0.90 cm EDV(Teich): 69.7 ml LVOT diam: 1.6 cm ESV(Teich): 24.3 ml Doppler Measurements & Calculations TR max lucia: 306.2 cm/sec TR max P.5 mmHg Procedure A complete two-dimensional transthoracic echocardiogram was performed (2D, M-mode, Doppler and color flow Doppler). Technically limited study. Left Ventricle The left ventricle is normal in size. Left ventricular systolic function is normal. Ejection Fraction = 55- 60%. No regional wall motion abnormalities noted. Right Ventricle The right ventricle is not well visualized. Atria The left atrial size is normal. Right atrial size is normal. Mitral Valve There is a bioprosthetic mitral valve. The prosthetic mitral valve is well-seated. There is mild mitr al regurgitation. Tricuspid Valve The tricuspid valve is normal in structure and function. There is moderate tricuspid regurgitation. P ulmonary artery systolic pressure is at least 41 mmHg if RA pressure is assumed 3 mmHg. Aortic Valve There is mild aortic sclerosis.;. Moderate aortic regurgitation. Pulmonic Valve The pulmonic valve is not well visualized. Great Vessels The aortic root is normal size. Pericardium/Pleura There is no pericardial effusion. Interpretation Summary The left ventricle is normal in size. Left ventricular systolic function is normal. No regional wall motion abnormalities noted. Ejection Fraction = 55-60%. The right ventricle is not well visualized. The left atrial size is normal. Right atrial size is normal. There is a bioprosthetic mitral valve. The prosthetic mitral valve is well-seated. There is mild mitral regurgitation. There is moderate tricuspid regurgitation. Pulmonary artery systolic pressure is at least 41 mmHg if RA pressure is assumed 3 mmHg Moderate aortic regurgitation. There is mild aortic sclerosis. No evidence of vegetations. Clinical correlation is recommended and RADHA if clinically indicated There is no pericardial effusion. Kamron Horne MD 03/06/2019 02:01 PM
[2019-03-06] MEDS ORDERED: WARFARIN NA 2 MG TABLET (UD) PO SCH (18:00)
[2019-03-06] MEDS: HYDROCHLOROTHIAZIDE 12.5 MG CAPSULE (FP) PO SCH (19:37)
[2019-03-06] MEDS: ATORVASTATIN CA 40 MG TABLET (FP) PO SCH (21:56)
[2019-03-07] MEDS: LEVOTHYROXINE NA 50 MCG TABLET (FP) PO SCH (06:41)
[2019-03-07 08:17] LABS: INR 1.74 (0.82-1.09); PROTHROMBIN TIME (PATIENT) 19.3 SEC (10.2-13.0)
[2019-03-07 08:25] LABS: BASO % 0.3 % (0-2.0); EOS % 1.8 % (0-4.5); HEMATOCRIT 32.7 % (32.4-45.2); HEMOGLOBIN 11.1 GM/dl (10.7-15.3); LYMPH % 14.5 % (8-40); MCH 30.4 pg (25.7-33.7); MCHC 33.9 g/dl (32.0-36.0); MEAN CELL VOLUME 89.6 fl (80-96); MEAN PLT VOLUME 8.5 fl (7.5-11.1); MONO % 6.7 % (3.8-10.2); NEUT % 76.7 % (42.8-82.8); PLATELET COUNT 167 K/MM3 (134-434); RBC 3.65 M/mm3 (3.60-5.2); RDW 14.2 % (11.6-15.6); WHITE BLOOD COUNT 4.7 K/mm3 (4.0-10.8)
[2019-03-07 08:32] LABS: BILIRUBIN,TOTAL 0.9 mg/dl (0.2-1); CALCIUM 8.6 mg/dl (8.5-10); MAGNESIUM 1.7 mg/dL (1.8-2.4); POTASSIUM 3.8 mmol/L (3.5-5.1); TOT PROT 5.8 g/dl (6.4-8.2)
[2019-03-07] MEDS ORDERED: DEXTROSE 5%-WATER - 50 ML IVPB ONE (10:40)
[2019-03-07] MEDS ORDERED: PT OWN MED DRAWER 7, Y5N ONE ×2 (10:40→21:43)
[2019-03-07] MEDS: CEFTRIAXONE 2 GM in DEXTROSE 5%-WATER - 50 ML IVPB SCH (10:51)
[2019-03-07] MEDS: BUDESONIDE/FORMETEROL FUMARATE 160/4.5 mcg INHALER IH SCH ×2 (10:54→21:45)
[2019-03-07] MEDS: HYDROCHLOROTHIAZIDE 12.5 MG CAPSULE (FP) PO SCH (10:55)
[2019-03-07] MEDS: CALCIUM 250MG/VIT-D 125 UNITS 1 COMBO TABLET PO SCH (10:55)
[2019-03-07] MEDS: LOSARTAN POTASSIUM 50 MG TABLET (FP) PO SCH ×2 (10:55→21:44)
[2019-03-07] MEDS: CARVEDILOL 25 MG TABLET (FP) PO SCH ×2 (10:55→21:44)
[2019-03-07] MEDS ORDERED: WARFARIN NA 2 MG TABLET (UD) PO SCH (11:53)
--- NOTE | 2019-03-07 14:40 | PN ---
Progress Note, Physician - Current Medication List Current Medications: Active Medications Acetaminophen (Tylenol -) 650 mg PO Q8H PRN PRN Reason: MILD PAIN Last Admin: 03/03/19 06:06 Dose: 650 mg Albuterol Sulfate (Ventolin Hfa Inhaler -) 2 puff IH Q6H PRN PRN Reason: SHORTNESS OF BREATH/WHEEZING Albuterol/Ipratropium (Duoneb -) 1 amp NEB Q6H PRN PRN Reason: SHORTNESS OF BREATH Last Admin: 03/03/19 18:14 Dose: 1 amp Atorvastatin Calcium (Lipitor -) 40 mg PO HS [facility] Last Admin: 03/06/19 21:56 Dose: 40 mg Budesonide/Formoterol Fumarate (Symbicort 160/4.5mcg -) 2 puff IH BID [facility] Last Admin: 03/07/19 10:54 Dose: 2 puff Calcium/Vitamin D (Oscal 250 Mg+D -) 1 tab PO DAILY [facility] Last Admin: 03/07/19 10:55 Dose: 1 tab Carvedilol (Coreg -) 25 mg PO BID [facility] Last Admin: 03/07/19 10:55 Dose: 25 mg Hydrochlorothiazide (Hctz -) 12.5 mg PO DAILY [facility] Last Admin: 03/07/19 10:55 Dose: 12.5 mg Ceftriaxone Sodium 2 gm/ (Dextrose) 50 mls @ 100 mls/hr IVPB DAILY [facility]; Protocol Last Admin: 03/07/19 10:51 Dose: 100 mls/hr Levothyroxine Sodium (Synthroid -) 50 mcg PO AM [facility] Last Admin: 03/07/19 06:41 Dose: 50 mcg Losartan Potassium (Cozaar -) 50 mg PO BID [facility] Last Admin: 03/07/19 10:55 Dose: 50 mg Ondansetron HCl (Zofran Injection) 4 mg IVPUSH Q6H PRN PRN Reason: NAUSEA Warfarin Sodium (Coumadin -) 5 mg PO DAILY@1800 [facility] - Objective Vital Signs: Vital Signs Temperature 98.0 F 03/07/19 14:30 Pulse Rate 112 H 03/07/19 14:30 Respiratory Rate 03/07/19 14:30 Blood Pressure 122/80 03/07/19 14:30 O2 Sat by Pulse Oximetry (%) 96 03/07/19 14:30 Labs: CBC, BMP 03/07/19 07:37 03/07/19 07:37 INR, PTT INR 1.74 (0.82-1.09) H 03/07/19 07:37
--- NOTE | 2019-03-07 14:50 | EKG ---
Test Reason : Blood Pressure : / mmHG Vent. Rate : 101 BPM Atrial Rate : 115 BPM P-R Int : 000 ms QRS Dur : 106 ms QT Int : 364 ms P-R-T Axes : 000 012 062 degrees QTc Int : 471 ms ATRIAL FIBRILLATION WITH RAPID VENTRICULAR RESPONSE INCOMPLETE RIGHT BUNDLE BRANCH BLOCK NONSPECIFIC T WAVE ABNORMALITY ABNORMAL ECG WHEN COMPARED WITH ECG OF 03-MAR-2019 12:30, MINIMAL CRITERIA FOR ANTERIOR INFARCT ARE NO LONGER PRESENT NONSPECIFIC T WAVE ABNORMALITY NO LONGER EVIDENT IN INFERIOR LEADS Confirmed by Jose M Riggins MD ([id number]) on 03/07/2019 2:50:09 PM Referred By: Arthur VIEYRA Confirmed By:Jose M Riggins MD
--- NOTE | 2019-03-07 15:37 | PN ---
Physical Exam: SUBJECTIVE: Patient seen and examined at bedside. Voices no complaints. 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 Dr. Nixon present. All questions answered. OBJECTIVE: Vital Signs Period Temp Pulse Resp BP Sys/Vasquez Pulse Ox Last 24 Hr 97.8 F-98.2 F 90-113 17-19 122-146/73-87 95-96 GENERAL: Awake, alert, and fully oriented, in no acute distress. LUNGS: Breath sounds equal, clear to auscultation bilaterally. No wheezes, and no crackles. No accessory muscle use. HEART: Irregular, S1, S2 ABDOMEN: Soft, nontender, not distended UPPER EXTREMITIES: 2+ pulses, warm, well-perfused. No cyanosis. No clubbing. No peripheral edema. LOWER EXTREMITIES: 2+ pulses, warm, well-perfused. No calf tenderness. No peripheral edema. NEUROLOGICAL: Cranial nerves II-XII intact. Normal speech. Steady gait. Laboratory Results - last 24 hr 03/07/19 03/07/19 03/07/19 07:37 07:37 07:37 WBC 4.7 RBC 3.65 Hgb 11.1 Hct 32.7 MCV 89.6 MCH 30.4 MCHC 33.9 RDW 14.2 Plt Count 167 MPV 8.5 Absolute Neuts (auto) 3.6 Neutrophils % 76.7 Lymphocytes % 14.5 Monocytes % 6.7 Eosinophils % 1.8 Basophils % 0.3 PT with INR 19.3 H INR 1.74 H Sodium 139 Potassium 3.8 Chloride 106 Carbon Dioxide 28 Anion Gap 5 L BUN 17.0 Creatinine 1.0 Est GFR (CKD-EPI)AfAm 59.91 Est GFR (CKD-EPI)NonAf 51.69 Random Glucose 85 Calcium 8.6 Magnesium 1.7 L Total Bilirubin 0.9 AST 19 ALT 18 Alkaline Phosphatase 93 D Total Protein 5.8 L Albumin 3.0 L Active Medications Generic Name Dose Route Start Last Admin Trade Name Freq PRN Reason Stop Dose Admin Acetaminophen 650 mg 03/02/19 19:05 03/03/19 06:06 Tylenol - PO 650 mg Q8H PRN Administration MILD PAIN Albuterol Sulfate 2 puff 03/02/19 19:15 Ventolin Hfa Inhaler - IH Q6H PRN SHORTNESS OF BREATH/WHEEZING Albuterol/Ipratropium 1 amp 03/03/19 17:33 03/03/19 18:14 Duoneb - NEB 1 amp Q6H PRN Administration SHORTNESS OF BREATH Atorvastatin Calcium 40 mg 03/02/19 22:00 03/06/19 21:56 Lipitor - PO 40 mg HS KAT[facility] Administration Budesonide/Formoterol Fumarate 2 puff 03/02/19 22:00 03/07/19 10:54 Symbicort 160/4.5mcg - IH 2 puff BID KAT[facility] Administration Calcium/Vitamin D 1 tab 03/04/19 13:45 03/07/19 10:55 Oscal 250 Mg+D - PO 1 tab DAILY [facility] Administration Carvedilol 25 mg 03/02/19 22:00 03/07/19 10:55 Coreg - PO 25 mg BID [facility] Administration Hydrochlorothiazide 12.5 mg 03/06/19 15:00 03/07/19 10:55 Hctz - PO 12.5 mg DAILY [facility] Administration Ceftriaxone Sodium 2 gm/ 50 mls @ 100 mls/hr 03/05/19 11:15 03/07/19 10:51 Dextrose IVPB 100 mls/hr DAILY [facility] Administration Protocol Levothyroxine Sodium 50 mcg 03/03/19 07:00 03/07/19 06:41 Synthroid - PO 50 mcg AM [facility] Administration Losartan Potassium 50 mg 03/05/19 22:00 03/07/19 10:55 Cozaar - PO 50 mg BID [facility] Administration Ondansetron HCl 4 mg 03/02/19 19:11 Zofran Injection IVPUSH Q6H PRN NAUSEA Warfarin Sodium 5 mg 03/07/19 18:00 Coumadin - PO DAILY@1800 [facility] ASSESSMENT/PLAN 81 year-old female with a PMH Of HTN, HLD, afib on coumadin, aortic and mitral tissue valve replacements, hypothyrodism, asthma/COPD, diverticulitis, and left breast cancer s/p lumpectomy and chemotherapy. Admitted for sepsis, UTI, found to have strep bacteremia. Sepsis likely secondary to E. coli UTI and Strep sanguis bacteremia Metabolic encephalopathy, resolved Strep sanguids bacteremia E.coli UTI --confusion per family prior to admission, improved, back to baseline --T103.5, p107, BP 98/61, pyuria on admission --Urine culture: E. coli --Blood cultures: Strep sanguis; in setting of dental procedure ~ 10 days ago ; Echo: no sign of vegetation but will need long-term antibiotics, duration to be determined by ID --today is day #5 on IV antibiotics; continue ceftriaxone --PICC line tomorrow Hypertension --continue losartan, resume HCTZ Atrial fibrillation with RVR --serial ECGs in afib continue carvedilol for rate control --continue coumadin 2mg Hyperlipidemia --continue Lipitor Aortic and mitral tissue valve replacements Diastolic dysfunction --01/29/17 echo: LV EF normal, impaired LV relaxation; RV normal; mild BLAE; prosthetic mitral valve well-seated, mild MR; mild to moderate TR; moderate pHTN ; aortic prosthetic valve, moderate AI; moderate PI --resumed HCTZ Asthma/COPD --stable --continue Symbicort, duonebs Hypothyroidism --continue levothyroxine F/E/N Fluids: PO intake adequate Electrolytes: replete as indicated Nutrition: regular DVT prophylaxis: on coumadin, increase to 2mg daily Dispo: continues to require inpatient care. Full Code. Visit type - Emergency Visit Emergency Visit: Yes ED Registration Date: 03/02/19 Care time: The patient presented to the Emergency Department on the above date and was hospitalized for further evaluation of their emergent condition. - New Patient This patient is new to me today: No - Critical Care Critical Care patient: No - Discharge Referral Referred to [facility] Med P.C.: No
[2019-03-07] MEDS ORDERED: WARFARIN NA 5 MG TABLET (UD) PO SCH (18:00)
[2019-03-07] MEDS: ATORVASTATIN CA 40 MG TABLET (FP) PO SCH (21:44)
[2019-03-08] MEDS: LEVOTHYROXINE NA 50 MCG TABLET (FP) PO SCH (06:32)
[2019-03-08] MEDS: LOSARTAN POTASSIUM 50 MG TABLET (FP) PO SCH ×2 (06:33→10:09)
[2019-03-08] MEDS: HYDROCHLOROTHIAZIDE 12.5 MG CAPSULE (FP) PO SCH ×2 (06:33→10:10)
[2019-03-08] MEDS: CARVEDILOL 25 MG TABLET (FP) PO SCH ×2 (06:33→10:08)
[2019-03-08 07:02] VITALS: PULSE 110
[2019-03-08] MEDS ORDERED: PT OWN MED DRAWER 7, Y5N ONE (09:20)
[2019-03-08] MEDS ORDERED: DEXTROSE 5%-WATER - 50 ML IVPB ONE (09:21)
[2019-03-08 09:51] VITALS: BP 125/67; TEMP 97.8
[2019-03-08] MEDS: BUDESONIDE/FORMETEROL FUMARATE 160/4.5 mcg INHALER IH SCH (09:52)
[2019-03-08] MEDS: CALCIUM 250MG/VIT-D 125 UNITS 1 COMBO TABLET PO SCH (09:59)
[2019-03-08] MEDS: CEFTRIAXONE 2 GM in DEXTROSE 5%-WATER - 50 ML IVPB SCH (10:00)
--- NOTE | 2019-03-08 10:35 | DS ---
Physical Exam: SUBJECTIVE: Patient seen and examined OBJECTIVE: Vital Signs Period Temp Pulse Resp BP Sys/Vasquez Pulse Ox Last 24 Hr 97.6 F-98.4 F 110-116 18-19 122-162/67-87 93-97 PHYSICAL EXAM GENERAL: Awake, alert, and fully oriented, in no acute distress. LUNGS: Breath sounds equal, clear to auscultation bilaterally. No wheezes, and no crackles. No accessory muscle use. HEART: Irregular, S1, S2 ABDOMEN: Soft, nontender, not distended UPPER EXTREMITIES: 2+ pulses, warm, well-perfused. No cyanosis. No clubbing. No peripheral edema; RUE PICC line LOWER EXTREMITIES: 2+ pulses, warm, well-perfused. No calf tenderness. No peripheral edema. NEUROLOGICAL: Cranial nerves II-XII intact. Normal speech. Steady gait. LABS Vital Signs Temperature 97.8 F 03/08/19 09:49 Pulse Rate 110 H 03/08/19 09:49 Respiratory Rate 18 03/08/19 09:49 Blood Pressure 125/67 03/08/19 09:49 O2 Sat by Pulse Oximetry (%) 95 03/08/19 09:49 HOSPITAL COURSE: Date of Admission:03/02/19 Date of Discharge: 03/08/19 Pre hospital course 81 year-old female with a PMH Of HTN, HLD, paroxysmal afib s/p ablations x 2 last one 2 years ago on coumadin, aortic and mitral tissue valve replacements, hypothyrodism, asthma/COPD, diverticulitis, and left breast cancer s/p lumpectomy and chemotherapy. Presented to the ED for evaluation of fever, confusion, low back pain, and mental confusion x 2 days. Patient reports several days of chills and mild nausea. She also reports right-sided flank pain for about a week. She denies dysuria, urgency, but endorses frequency. She denies abdominal pain. She had one episode of loose stool this morning. No blood in stool or urine. ER course (1) T103.5, p107, BP 98/61 (2) UA: pyuria (3) Ceftriaxone x 1; NS x 1L Subsequent hospital course 81 year-old female with a PMH Of HTN, HLD, afib on coumadin, aortic and mitral tissue valve replacements, hypothyrodism, asthma/COPD, diverticulitis, and left breast cancer s/p lumpectomy and chemotherapy. Admitted for sepsis, UTI, found to have strep bacteremia. Sepsis likely secondary to E. coli UTI and Strep sanguis bacteremia Metabolic encephalopathy, resolved --confusion per family prior to admission, improved, back to baseline --T103.5, p107, BP 98/61, pyuria on admission --Urine culture: E. coli --Blood cultures: Strep sanguis; in setting of dental procedure ~ 10 days ago ; Echo: no sign of vegetation but will need long-term antibiotics, additional 23 days of treatment post-discharge --PICC line in place Hypertension --continued losartan, resume HCTZ Atrial fibrillation with RVR --serial ECGs in afib; continued carvedilol for rate control --continued coumadin Hyperlipidemia --continued Lipitor Aortic and mitral tissue valve replacements Diastolic dysfunction --01/29/17 echo: LV EF normal, impaired LV relaxation; RV normal; mild BLAE; prosthetic mitral valve well-seated, mild MR; mild to moderate TR; moderate pHTN ; aortic prosthetic valve, moderate AI; moderate PI --resumed HCTZ Asthma/COPD --stable --continued Symbicort, duonebs Hypothyroidism --continued levothyroxine Minutes to complete discharge: 35 Discharge Summary Reason For Visit: FEVER,ALTERED MENTAL STATUS Current Active Problems Altered mental status (Acute) UTI (urinary tract infection) (Acute) Condition: Improved - Instructions Diet, Activity, Other Instructions: You are being discharged to home today. You will need to come back to [facility], second floor, for daily intravenous antibiotic therapy. Your first session will be tomorrow, , 03/08/19. Referrals: Jose Miguel Daniel MD [Staff Physician] - Disposition: HOME - Home Medications Comprehensive Discharge Medication List: Ambulatory Orders Albuterol Sulfate Inhaler - [Ventolin HFA Inhaler -] 1 - 2 inh PO ASDIR Cholecalciferol (Vitamin D3) [Vitamin D3] 2,000 unit PO DAILY 03/30/16 Atorvastatin Ca [Lipitor] 40 mg PO HS 01/27/17 Budesonide/Formeterol Fumarate [SYMBICORT 160/4.5mcg -] 1 inh PO ASDIR 01/27/17 Carvedilol [Coreg -] 25 mg PO BID #60 tablet 01/30/17 Losartan Potassium [Cozaar -] 50 mg PO BID 02/23/18 Acetaminophen [Tylenol] 650 mg PO TID PRN 7 Days tablet 03/08/18 Warfarin Sodium [Coumadin] 1 mg PO DAILY 03/02/19 Hydrochlorothiazide [Hctz -] 12.5 mg PO DAILY 03/03/19 This patient is new to me today: No Emergency Visit: Yes ED Registration Date: 03/02/19 Care time: The patient presented to the Emergency Department on the above date and was hospitalized for further evaluation of their emergent condition. Critical Care patient: No - Discharge Referral Referred to [facility] Med P.C.: No
[2019-03-08 14:52] LABS: INR 1.79 (0.82-1.09); PROTHROMBIN TIME (PATIENT) 19.8 SEC (10.2-13.0)
--- NOTE | 2019-03-08 15:09 | PN ---
Progress Note, Physician History of Present Illness: stable doing well picc line placed - Current Medication List Current Medications: Active Medications Acetaminophen (Tylenol -) 650 mg PO Q8H PRN PRN Reason: MILD PAIN Last Admin: 03/03/19 06:06 Dose: 650 mg Albuterol Sulfate (Ventolin Hfa Inhaler -) 2 puff IH Q6H PRN PRN Reason: SHORTNESS OF BREATH/WHEEZING Albuterol/Ipratropium (Duoneb -) 1 amp NEB Q6H PRN PRN Reason: SHORTNESS OF BREATH Last Admin: 03/03/19 18:14 Dose: 1 amp Atorvastatin Calcium (Lipitor -) 40 mg PO HS [facility] Last Admin: 03/07/19 21:44 Dose: 40 mg Budesonide/Formoterol Fumarate (Symbicort 160/4.5mcg -) 2 puff IH BID [facility] Last Admin: 03/08/19 09:52 Dose: 2 puff Calcium/Vitamin D (Oscal 250 Mg+D -) 1 tab PO DAILY [facility] Last Admin: 03/08/19 09:59 Dose: 1 tab Carvedilol (Coreg -) 25 mg PO BID [facility] Last Admin: 03/08/19 10:08 Dose: Not Given Hydrochlorothiazide (Hctz -) 12.5 mg PO DAILY [facility] Last Admin: 03/08/19 10:10 Dose: Not Given Ceftriaxone Sodium 2 gm/ (Dextrose) 50 mls @ 100 mls/hr IVPB DAILY [facility]; Protocol Last Admin: 03/08/19 10:00 Dose: 100 mls/hr Levothyroxine Sodium (Synthroid -) 50 mcg PO AM [facility] Last Admin: 03/08/19 06:32 Dose: 50 mcg Losartan Potassium (Cozaar -) 50 mg PO BID [facility] Last Admin: 03/08/19 10:09 Dose: Not Given Ondansetron HCl (Zofran Injection) 4 mg IVPUSH Q6H PRN PRN Reason: NAUSEA Warfarin Sodium (Coumadin -) 5 mg PO DAILY@1800 [facility] Last Admin: 03/07/19 17:57 Dose: 5 mg - Objective Vital Signs: Vital Signs Temperature 97.8 F 03/08/19 09:49 Pulse Rate 110 H 03/08/19 09:49 Respiratory Rate 18 03/08/19 09:49 Blood Pressure 125/67 03/08/19 09:49 O2 Sat by Pulse Oximetry (%) 95 03/08/19 09:49 Constitutional: Yes: No Distress, Calm Cardiovascular: Yes: Regular Rate and Rhythm Respiratory: Yes: Regular, CTA Bilaterally Gastrointestinal: Yes: Normal Bowel Sounds, Soft Musculoskeletal: Yes: WNL Extremities: Yes: WNL Neurological: Yes: Alert, Oriented Psychiatric: Yes: Alert, Oriented Labs: CBC, BMP 03/07/19 07:37 03/07/19 07:37 INR, PTT INR 1.74 (0.82-1.09) H 03/07/19 07:37 Assessment/Plan Problem List - Problems (1) Altered mental status Code(s): R41.82 - ALTERED MENTAL STATUS, UNSPECIFIED (2) UTI (urinary tract infection) Code(s): N39.0 - URINARY TRACT INFECTION, SITE NOT SPECIFIED (3) A-fib Code(s): I48.91 - UNSPECIFIED ATRIAL FIBRILLATION (4) Breast cancer, left breast Code(s): C50.912 - MALIGNANT NEOPLASM OF UNSPECIFIED SITE OF LEFT FEMALE BREAST Qualifiers: Qualified Code(s): C50.412 - Malignant neoplasm of upper-outer quadrant of left female breast; Z17.1 - Estrogen receptor negative status [ER-] (5) COPD (chronic obstructive pulmonary disease) Code(s): J44.9 - CHRONIC OBSTRUCTIVE PULMONARY DISEASE, UNSPECIFIED (6) HLD (hyperlipidemia) Code(s): E78.5 - HYPERLIPIDEMIA, UNSPECIFIED (7) Hypertensive urgency Code(s): I16.0 - HYPERTENSIVE URGENCY (8) Hypothyroidism Code(s): E03.9 - HYPOTHYROIDISM, UNSPECIFIED plan i am going to advise patient to get iv abx for another 23 days weeks any fevers back into the hospital continue current mgmt rest as per the team
== END 2019-03-08 16:36 | disposition home or self-care (01) | DRG 871 ==
LOC: FER 16:05 → FM/S 20:44
PROVIDERS: ATTEND Nurse Practitioner Acute Care
PROC: 02HV33Z Insertion of Infusion Device into Superior Vena Cava, Percutaneous Approach (ICD-10-PCS; principal; 2019-03-08)
DX: A41.51 Sepsis due to Escherichia coli [E. coli] (principal); G93.41 Metabolic encephalopathy; N39.0 Urinary tract infection, site not specified; J44.9 Chronic obstructive pulmonary disease, unspecified; I10 Essential (primary) hypertension; I48.91 Unspecified atrial fibrillation; R41.82 Altered mental status, unspecified; E78.5 Hyperlipidemia, unspecified; E03.9 Hypothyroidism, unspecified; B96.20 Unspecified Escherichia coli [E. coli] as the cause of diseases classified elsewhere; J45.909 Unspecified asthma, uncomplicated
CPT/HCPCS: 36415; 36569; 70450-TC; 71046-TC-FY; 72100-TC-FY; 74176-TC; 77001-TC-FY; 80048; 80053; 81003; 81015; 83605; 83735; 84443; 85025; 85610; 87040; 87086; 87186; 93005; 93306-TC; 94640; 99281-25; C1751; J0131; J7030

== ENCOUNTER 2019-03-09 10:14 | Day surgery (SDC) | payer OTHER ==
[2019-03-09] MEDS ORDERED: CEFTRIAXONE 2 GM in DEXTROSE 5%-WATER 100 ML IVPB ONE (10:30)
[2019-03-09 11:02] VITALS: BP 119/73; PULSE 84; TEMP 98.3
[2019-03-09 11:03] LABS: INR 2.3 (0.82-1.09); PROTHROMBIN TIME (PATIENT) 25.3 SEC (10.2-13.0)
--- NOTE | 2019-03-09 11:36 | HOSP ---
Subjective - Review of Symptoms Events since last encounter: INR 2.3 today; advised warfarin 3mg daily, repeat INR in one week. Physical Examination Vital Signs: Vital Signs Temperature 98.3 F 03/09/19 11:06 Pulse Rate 84 03/09/19 11:06 Respiratory Rate 18 03/09/19 11:06 Blood Pressure 119/73 03/09/19 11:06 O2 Sat by Pulse Oximetry (%)
== END 2019-03-09 11:50 | disposition home or self-care (01) ==
LOC: FINFUSION 10:14 → FBLOOD 10:14 → FM/S 10:15 → FBLOOD 11:50
PROVIDERS: ATTEND Nurse Practitioner Acute Care
DX: A40.9 Streptococcal sepsis, unspecified (principal)
CPT/HCPCS: 36415; 85610; 96365

== ENCOUNTER 2019-03-10 10:58 | Day surgery (SDC) | payer OTHER ==
[2019-03-10] MEDS ORDERED: CEFTRIAXONE 2 GM-D5W BAG 2 GM/50 ML BAG IVPB ONE (11:30)
[2019-03-10 11:59] VITALS: PULSE 98; TEMP 98.7
[2019-03-10 12:43] VITALS: BP 126/84
== END 2019-03-10 12:50 | disposition home or self-care (01) ==
LOC: FINFUSION 10:58 → FM/S 11:06 → FINFUSION 12:50
PROVIDERS: ATTEND Nurse Practitioner Acute Care
DX: A40.9 Streptococcal sepsis, unspecified (principal)
CPT/HCPCS: 96365

== ENCOUNTER 2019-03-11 08:48 | Day surgery (SDC) | payer OTHER ==
[2019-03-11 09:47] VITALS: TEMP 97
[2019-03-11 09:58] VITALS: BP 132/80; PULSE 114
[2019-03-11] MEDS ORDERED: CEFTRIAXONE 2 GM-D5W BAG 2 GM/50 ML BAG IVPB SCH (10:00)
== END 2019-03-11 10:00 | disposition home or self-care (01) ==
LOC: FM/S 08:48 → FINFUSION 08:48
PROVIDERS: ATTEND Nurse Practitioner Acute Care
DX: A40.9 Streptococcal sepsis, unspecified (principal)
CPT/HCPCS: 96365

== ENCOUNTER 2019-03-12 09:46 | Day surgery (SDC) | payer OTHER ==
[2019-03-12] MEDS ORDERED: CEFTRIAXONE 2 GM-D5W BAG 2 GM/50 ML BAG IVPB ONE (10:30)
[2019-03-12 11:21] VITALS: BP 120/72; PULSE 82
== END 2019-03-12 11:00 | disposition home or self-care (01) ==
LOC: FINFUSION 09:46 → FM/S 09:48 → FINFUSION 11:00
PROVIDERS: ATTEND Nurse Practitioner Acute Care
DX: A40.9 Streptococcal sepsis, unspecified (principal)
CPT/HCPCS: 96365

== ENCOUNTER 2019-03-13 11:19 | Day surgery (SDC) | payer OTHER ==
[2019-03-13] MEDS ORDERED: CEFTRIAXONE 2 GM-D5W BAG 2 GM/50 ML BAG IVPB ONE (11:45)
[2019-03-13 12:21] VITALS: BP 131/74; PULSE 111; TEMP 98.7; BMI 28.2
== END 2019-03-13 12:27 | disposition home or self-care (01) ==
LOC: FINFUSION 11:19 → FM/S 11:22 → FINFUSION 12:27
PROVIDERS: ATTEND Nurse Practitioner Acute Care
DX: A40.9 Streptococcal sepsis, unspecified (principal)
CPT/HCPCS: 96365

== ENCOUNTER 2019-03-14 10:11 | Day surgery (SDC) | payer OTHER ==
[2019-03-14 12:16] LABS: PROTHROMBIN TIME (PATIENT) 45.5 SEC (10.2-13.0)
[2019-03-14 12:19] LABS: INR 4.18 (0.82-1.09)
[2019-03-14 12:26] VITALS: BP 145/75; PULSE 109; TEMP 98.8
== END 2019-03-14 11:45 | disposition home or self-care (01) ==
LOC: FINFUSION 10:11 → FM/S 10:16 → FINFUSION 11:45
PROVIDERS: ATTEND Nurse Practitioner Acute Care
DX: A40.9 Streptococcal sepsis, unspecified (principal)
CPT/HCPCS: 36415; 85610; 96365

== ENCOUNTER 2019-03-15 10:46 | Day surgery (SDC) | payer OTHER ==
[2019-03-15] MEDS ORDERED: CEFTRIAXONE 2 GM-D5W BAG 2 GM/50 ML BAG IVPB ONE (11:00)
--- NOTE | 2019-03-15 11:55 | HOSP ---
Subjective - Review of Symptoms Events since last encounter: INR drawn yesterday, 4.18. Advised patient today to hold coumadin today and tomorrow and we will repeat INR on Wednesday, 03/17, when she comes in for her infusion.
[2019-03-15 14:06] VITALS: BP 148/96; PULSE 110; TEMP 98.4
== END 2019-03-15 11:47 | disposition home or self-care (01) ==
LOC: FINFUSION 10:46 → FM/S 10:49 → FINFUSION 11:47
PROVIDERS: ATTEND Nurse Practitioner Acute Care
DX: A40.9 Streptococcal sepsis, unspecified (principal)
CPT/HCPCS: 96365

== ENCOUNTER 2019-03-16 09:49 | Day surgery (SDC) | payer OTHER ==
[2019-03-16] MEDS ORDERED: CEFTRIAXONE 2 GM-D5W BAG 2 GM/50 ML BAG IVPB ONE (10:15)
[2019-03-16 10:47] VITALS: BP 138/87; PULSE 88; TEMP 98
== END 2019-03-16 10:45 | disposition home or self-care (01) ==
LOC: FINFUSION 09:49 → FM/S 09:52 → FINFUSION 10:45
PROVIDERS: ATTEND Nurse Practitioner Acute Care
DX: A40.9 Streptococcal sepsis, unspecified (principal)
CPT/HCPCS: 96365

== ENCOUNTER 2019-03-17 09:27 | Day surgery (SDC) | payer OTHER ==
[2019-03-17] MEDS ORDERED: CEFTRIAXONE 2 GM-D5W BAG 2 GM/50 ML BAG IVPB ONE (09:45)
[2019-03-17 10:30] LABS: INR 3.34 (0.82-1.09); PROTHROMBIN TIME (PATIENT) 36.5 SEC (10.2-13.0)
--- NOTE | 2019-03-17 11:12 | HOSP ---
Subjective - Review of Symptoms Events since last encounter: INR 3.34 today. Advised patient to hold warfarin today, repeat INR tomorrow when she comes in for antibiotic infusion.
== END 2019-03-17 11:08 | disposition home or self-care (01) ==
LOC: FINFUSION 09:27 → FM/S 09:28 → FINFUSION 11:08
PROVIDERS: ATTEND Nurse Practitioner Acute Care
DX: A40.9 Streptococcal sepsis, unspecified (principal)
CPT/HCPCS: 36415; 85610; 96365

== ENCOUNTER 2019-03-18 09:56 | Day surgery (SDC) | payer OTHER ==
[2019-03-18] MEDS ORDERED: CEFTRIAXONE 2 GM-D5W BAG 2 GM/50 ML BAG IVPB ONE (10:00)
[2019-03-18 11:55] VITALS: BP 142/78; PULSE 76; TEMP 98.2
[2019-03-18 12:07] LABS: INR 2.68 (0.82-1.09); PROTHROMBIN TIME (PATIENT) 29.4 SEC (10.2-13.0)
[2019-03-19] MEDS ORDERED: CEFTRIAXONE 2 GM-D5W BAG 2 GM/50 ML BAG IVPB SCH (10:00)
== END 2019-03-18 11:05 | disposition home or self-care (01) ==
LOC: FINFUSION 09:56 → FM/S 09:59 → FINFUSION 11:05
PROVIDERS: ATTEND Nurse Practitioner Acute Care
DX: A40.9 Streptococcal sepsis, unspecified (principal)
CPT/HCPCS: 36415; 85610; 96365

== ENCOUNTER 2019-03-19 09:14 | Day surgery (SDC) | payer OTHER ==
[2019-03-19 09:56] VITALS: BP 127/63; PULSE 90; TEMP 98.7
[2019-03-19] MEDS ORDERED: CEFTRIAXONE 2 GM in DEXTROSE 5%-WATER 100 ML IVPB ONE (11:45)
[2019-03-19] MEDS ORDERED: CEFTRIAXONE 2 GM-D5W BAG 2 GM/50 ML BAG IVPB ONE (13:00)
== END 2019-03-19 10:30 | disposition home or self-care (01) ==
LOC: FINFUSION 09:14 → FM/S 09:37 → FINFUSION 10:30
PROVIDERS: ATTEND Nurse Practitioner Acute Care
DX: A40.9 Streptococcal sepsis, unspecified (principal)
CPT/HCPCS: 96365

== ENCOUNTER 2019-03-20 10:58 | Day surgery (SDC) | payer OTHER ==
[2019-03-20] MEDS ORDERED: CEFTRIAXONE 2 GM-D5W BAG 2 GM/50 ML BAG IVPB ONE (11:30)
[2019-03-20 11:48] VITALS: BP 132/72; PULSE 105; TEMP 97.8
== END 2019-03-20 11:55 | disposition home or self-care (01) ==
LOC: FINFUSION 10:58 → FM/S 11:00 → FINFUSION 11:55
PROVIDERS: ATTEND Nurse Practitioner Acute Care
DX: A40.9 Streptococcal sepsis, unspecified (principal)
CPT/HCPCS: 96365

== ENCOUNTER 2019-03-21 09:34 | Day surgery (SDC) | payer OTHER ==
[2019-03-21] MEDS ORDERED: CEFTRIAXONE 2 GM-D5W BAG 2 GM/50 ML BAG IVPB ONE (10:00)
[2019-03-21 10:10] VITALS: BP 131/73; PULSE 88; TEMP 98.1; BMI 28.5
== END 2019-03-21 11:00 | disposition home or self-care (01) ==
LOC: FINFUSION 09:34 → FM/S 09:39 → FINFUSION 11:00
PROVIDERS: ATTEND Nurse Practitioner Acute Care
DX: A40.9 Streptococcal sepsis, unspecified (principal)
CPT/HCPCS: 96365

== ENCOUNTER 2019-03-22 09:36 | Day surgery (SDC) | payer OTHER ==
[2019-03-22] MEDS ORDERED: DEXTROSE 5%-WATER 100 ML IVPB ONE (10:00)
[2019-03-22] MEDS ORDERED: CEFTRIAXONE 2 GM in DEXTROSE 5%-WATER 100 ML IVPB ONE (10:00)
[2019-03-22 10:17] VITALS: TEMP 98.3
[2019-03-22 11:09] VITALS: BP 140/70; PULSE 87
== END 2019-03-22 10:49 | disposition home or self-care (01) ==
LOC: FINFUSION 09:36 → FM/S 09:38 → FINFUSION 10:49
PROVIDERS: ATTEND Nurse Practitioner Acute Care
DX: A40.9 Streptococcal sepsis, unspecified (principal)
CPT/HCPCS: 96365

== ENCOUNTER 2019-03-23 09:44 | Day surgery (SDC) | payer OTHER ==
[2019-03-23] MEDS ORDERED: CEFTRIAXONE 2 GM-D5W BAG 2 GM/50 ML BAG IVPB ONE (10:15)
[2019-03-23 10:35] LABS: INR 2.63 (0.82-1.09); PROTHROMBIN TIME (PATIENT) 28.9 SEC (10.2-13.0)
--- NOTE | 2019-03-23 11:55 | HOSP ---
Subjective - Review of Symptoms Events since last encounter: INR today 2.63. Patient taking warfarin 2mg daily. Advised to continue current dosing. Patient had a number of questions about prophylactic antibiotic coverage for future dental work. Suggested to patient she make an appointment to see Dr. Nixon, infectious disease, when she completes the course of IV antibiotics and he will advise her regarding future treatment.
[2019-03-23 11:57] VITALS: BP 134/70; PULSE 98; TEMP 98.9
== END 2019-03-23 11:00 | disposition home or self-care (01) ==
LOC: FINFUSION 09:44 → FASU 09:54 → FINFUSION 11:00
PROVIDERS: ATTEND Nurse Practitioner Acute Care
DX: A40.9 Streptococcal sepsis, unspecified (principal)
CPT/HCPCS: 36415; 85610; 96365; 96366

== ENCOUNTER 2019-03-24 09:19 | Day surgery (SDC) | payer OTHER ==
[2019-03-24 10:10] VITALS: BP 142/83; TEMP 98.6; BMI 28.5
[2019-03-24] MEDS ORDERED: CEFTRIAXONE 2 GM-D5W BAG 2 GM/50 ML BAG IVPB ONE (10:30)
[2019-03-24 10:42] VITALS: PULSE 99
== END 2019-03-24 11:15 | disposition home or self-care (01) ==
LOC: FINFUSION 09:19 → FM/S 09:22 → FINFUSION 11:15
PROVIDERS: ATTEND Nurse Practitioner Acute Care
DX: A40.9 Streptococcal sepsis, unspecified (principal)
CPT/HCPCS: 96365

== ENCOUNTER 2019-03-26 08:28 | Day surgery (SDC) | payer OTHER ==
[2019-03-26] MEDS ORDERED: CEFTRIAXONE 2 GM-D5W BAG 2 GM/50 ML BAG IVPB ONE (09:15)
[2019-03-26 09:30] VITALS: BP 137/80; PULSE 108; TEMP 97.9; BMI 28.5
== END 2019-03-26 10:25 | disposition home or self-care (01) ==
LOC: FINFUSION 08:28 → FM/S 08:30 → FINFUSION 10:25
PROVIDERS: ATTEND Nurse Practitioner Acute Care
DX: A40.9 Streptococcal sepsis, unspecified (principal)
CPT/HCPCS: 96365

== ENCOUNTER 2019-03-27 12:32 | Day surgery (SDC) | payer OTHER ==
[2019-03-27] MEDS ORDERED: CEFTRIAXONE 2 GM-D5W BAG 2 GM/50 ML BAG IVPB ONE (13:00)
[2019-03-27 13:29] VITALS: BP 124/68; PULSE 62; TEMP 97.4
== END 2019-03-27 13:25 | disposition home or self-care (01) ==
LOC: FINFUSION 12:32 → FM/S 12:37 → FINFUSION 13:25
PROVIDERS: ATTEND Nurse Practitioner Acute Care
DX: A40.9 Streptococcal sepsis, unspecified (principal)
CPT/HCPCS: 96365

== ENCOUNTER 2019-03-28 10:13 | Day surgery (SDC) | payer OTHER ==
[2019-03-28] MEDS ORDERED: CEFTRIAXONE 2 GM-D5W BAG 2 GM/50 ML BAG IVPB ONE (10:30)
[2019-03-28 11:19] VITALS: BP 133/74; PULSE 70; TEMP 18
== END 2019-03-28 11:00 | disposition home or self-care (01) ==
LOC: FINFUSION 10:13 → FM/S 10:14 → FINFUSION 11:00
PROVIDERS: ATTEND Nurse Practitioner Acute Care
DX: A40.9 Streptococcal sepsis, unspecified (principal)
CPT/HCPCS: 96365

== ENCOUNTER 2019-03-29 09:18 | Day surgery (SDC) | payer OTHER ==
[2019-03-29] MEDS ORDERED: CEFTRIAXONE 2 GM-D5W BAG 2 GM/50 ML BAG IVPB ONE (09:45)
[2019-03-29 10:28] VITALS: BP 146/83; PULSE 107; TEMP 98.4; BMI 28.5
== END 2019-03-29 10:30 | disposition home or self-care (01) ==
LOC: FINFUSION 09:18 → FM/S 09:21 → FINFUSION 10:30
PROVIDERS: ATTEND Nurse Practitioner Acute Care
DX: A40.9 Streptococcal sepsis, unspecified (principal)
CPT/HCPCS: 96365

== ENCOUNTER 2019-03-30 11:23 | Day surgery (SDC) | payer OTHER ==
[~2019-03-30 11:23] MED LIST: CEFTRIAXONE 2 GM-D5W BAG 2 GM/50 ML BAG IVPB ONE
[2019-03-30] MEDS ORDERED: CEFTRIAXONE 2 GM-D5W BAG 2 GM/50 ML BAG IVPB ONE (12:00)
[2019-03-30 12:04] LABS: INR 2.7 (0.82-1.09); PROTHROMBIN TIME (PATIENT) 29.6 SEC (10.2-13.0)
[2019-03-30 13:07] VITALS: BP 124/68; PULSE 64; TEMP 97.6
--- NOTE | 2019-03-30 13:53 | HOSP ---
Subjective - Review of Symptoms Events since last encounter: INR 2.7 today. Called and left message to continue current dosing. Physical Examination Vital Signs: Vital Signs Temperature 97.6 F 03/30/19 12:14 Pulse Rate 64 03/30/19 12:14 Respiratory Rate 18 03/30/19 12:14 Blood Pressure 124/68 03/30/19 12:14 O2 Sat by Pulse Oximetry (%)
== END 2019-03-30 12:37 | disposition home or self-care (01) ==
LOC: FINFUSION 11:23 → FM/S 11:24 → FINFUSION 12:37
PROVIDERS: ATTEND Nurse Practitioner Acute Care
DX: A40.9 Streptococcal sepsis, unspecified (principal)
CPT/HCPCS: 36415; 85610; 96365

== ENCOUNTER 2019-03-31 09:45 | Day surgery (SDC) | payer OTHER ==
[2019-03-31 10:23] VITALS: BP 140/88; PULSE 81
[2019-03-31] MEDS ORDERED: CEFTRIAXONE 2 GM-D5W BAG 2 GM/50 ML BAG IVPB ONE (10:30)
== END 2019-03-31 10:40 | disposition home or self-care (01) ==
LOC: FINFUSION 09:45 → FM/S 09:48 → FINFUSION 10:40
PROVIDERS: ATTEND Nurse Practitioner Acute Care
DX: A40.9 Streptococcal sepsis, unspecified (principal)
CPT/HCPCS: 96365

== ENCOUNTER 2020-05-14 07:33 | Day surgery (SDC) | payer OTHER ==
[2020-05-14] MEDS ORDERED: ONDANSETRON 4 MG/2 ML VIAL IVPUSH PRN (07:49)
[2020-05-14] MEDS ORDERED: OFLOXACIN 0.3% OPHTHALMIC SOLUTION 5 ML BOTTLE ONE (07:51)
[2020-05-14] MEDS ORDERED: KETOROLAC TROMETHAMINE 0.5% EYE DROP 1 DROP DROPS ONE (07:51)
[2020-05-14] MEDS ORDERED: CYCLOPENTOLATE HCL 1% OPHTH SOLN 2 ML BOTTLE ONE (07:51)
[2020-05-14] MEDS ORDERED: PHENYLEPHRINE 2.5% OPHTH SOLN 15 ML BOTTLE ONE (07:51)
[2020-05-14] MEDS ORDERED: TROPICAMIDE 1% OPHTH SOLN 15 ML BOTTLE ONE (07:51)
[2020-05-14] MEDS: KETOROLAC TROMETHAMINE 0.5% EYE DROP 1 DROP DROPS OD SCH ×5 (08:15→08:35)
[2020-05-14] MEDS: TROPICAMIDE 1% OPHTH SOLN 15 ML BOTTLE OD SCH ×5 (08:15→08:35)
[2020-05-14] MEDS: CYCLOPENTOLATE HCL 1% OPHTH SOLN 2 ML BOTTLE OD SCH ×5 (08:15→08:35)
[2020-05-14] MEDS: OFLOXACIN 0.3% OPHTHALMIC SOLUTION 5 ML BOTTLE OD SCH ×5 (08:15→08:35)
[2020-05-14] MEDS: PHENYLEPHRINE 2.5% OPHTH SOLN 15 ML BOTTLE OD SCH ×5 (08:15→08:35)
[2020-05-14 08:27] VITALS: TEMP 98.1; BMI 28.9
[2020-05-14] MEDS ORDERED: MIDAZOLAM HCL 2 MG/2 ML SINGLE DOSE VIAL ONE (09:27)
[2020-05-14] MEDS ORDERED: ONDANSETRON 4 MG/2 ML VIAL ONE (09:32)
[2020-05-14] MEDS ORDERED: SUCCINYLCHOLINE CHLORIDE 200 MG/10 ML SYRINGE ONE (09:36)
[2020-05-14] MEDS ORDERED: ACETAMINOPHEN 325 MG TABLET (FP) PO PRN (10:09)
--- NOTE | 2020-05-14 10:24 | OP ---
DATE OF OPERATION: 05/14/2020 PREOPERATIVE DIAGNOSIS: Cataract, right eye. POSTOPERATIVE DIAGNOSIS: Cataract, right eye. PROCEDURE: Cataract extraction via phacoemulsification with insertion of posterior chamber lens implant, right eye. SURGEON: Emile Diamond MD GRAIN ELEVATOR MAN: Lanny Amaya MD ANESTHESIA: Topical with sedation. ESTIMATED BLOOD LOSS: Less than 1 mL. COMPLICATIONS: None. SPECIMENS: None. PROCEDURE: The patient was identified in the holding area. After all risks, benefits and alternatives were explained to the patient, informed consent was obtained. The right eye was marked with a marking pen. The patient then entered the operating room on an eye stretcher. After formal timeout was performed, topical tetracaine eye drops were instilled onto the right eye. The right eye was then prepped and draped in the usual sterile fashion. An eyelid speculum was placed beneath the eyelids of the right eye. A superotemporal paracentesis incision was created using a 15-degree blade. Preservative-free epinephrine and preservative-free lidocaine were then injected into the anterior chamber. Viscoelastic was then injected into the anterior chamber. A 2.4-mm keratome blade was then used to make an inferotemporal incision. A 360-degree continuous curvilinear capsulorrhexis was then created using bent cystotome and Utrata forceps. Hydrodissection was performed using balanced saline solution on a cannula. Phacoemulsification was introduced. It disassembled and removed the nucleus in its entirety. Irrigation/aspiration was then used to remove any remaining cortical material from the eye. The capsular bag was reformed using viscoelastic. An Ayden model [id number] with a power of 21.5 diopters, serial number [id number] was inspected, found to be defect free and injected in the capsular bag. Irrigation/aspiration was then used to remove any remaining viscoelastic from the eye. All wounds were hydrated with balanced saline solution, noted to be watertight. There was a red reflex present. The anterior chamber was deep. The eye had adequate pressure and the lens was perfectly centered in the capsular bag. Topical antibiotic eye drops and ointment were then administered to the right eye. The eyelid speculum was removed from the right eye. The right eye was shielded. Patient tolerated the procedure well, left the operating room in stable condition, to follow up in the eye clinic tomorrow morning at 10 o'clock. EMILE DIAMOND M.D. MARY/[id number]
[2020-05-14 10:40] VITALS: BP 155/85; PULSE 95
[2020-05-14] MEDS ORDERED: BETAXOLOL HCL 0.25% OPHTHALMIC 10 ML DROPSBTL ONE (12:34)
[2020-05-14] MEDS ORDERED: BACITRACIN/POLYMYXIN OPH OINT 3.5 GM TUBE ONE (12:34)
[2020-05-14] MEDS ORDERED: EPI-SHUGARCAINE (EPINEPHRINE 0.025% & LIDOCAINE-PF 0.75%) 4ML ONE (12:34)
[2020-05-14] MEDS ORDERED: NEO/POLYMYX B SULF/DEXAMETH OPHTHALMIC 5ML BOTTLE ONE (12:35)
[2020-05-14] MEDS ORDERED: TETRACAINE 0.5% OPHTH SOLN 2 ML BOTTLE ONE (12:35)
[2020-05-14] MEDS ORDERED: POVIDONE-IODINE 5% OPHTHALMIC PREP 30 ML SOLUTION ONE (12:35)
== END 2020-05-14 11:00 | disposition home or self-care (01) ==
LOC: FASU 07:33
PROVIDERS: ATTEND Ophthalmology
PROC: 08RJ3JZ Replacement of Right Lens with Synthetic Substitute, Percutaneous Approach (ICD-10-PCS; principal; 2020-05-14 09:41)
DX: H26.9 Unspecified cataract (principal)

== ENCOUNTER 2021-01-13 18:30 | Inpatient (IN) | payer OTHER ==
[2021-01-13] MEDS ORDERED: METOPROLOL TARTRATE 5 MG/5 ML VIAL IVPUSH ONE (18:38)
[2021-01-13] MEDS ORDERED: METOPROLOL TARTRATE 5 MG/5 ML VIAL ONE (18:45)
[2021-01-13 19:20] LABS: HEMOGLOBIN 13.6 GM/dl (10.7-15.3); MCHC 32.3 g/dl (32.0-36.0); MEAN CELL VOLUME 89.9 fl (80-96); MEAN PLT VOLUME 8.9 fl (7.5-11.1); PLATELET COUNT 152 K/MM3 (134-434); RBC 4.67 M/mm3 (3.60-5.2); WHITE BLOOD COUNT 12.6 K/mm3 (4.0-10.8)
[2021-01-13 19:32] LABS: ACTIVATED PTT 25.4 SECONDS (25.2-36.5)
[2021-01-13 19:34] LABS: ALBUMIN 3.9 g/dl (3.4-5.0); ALK PHOS 116 U/L (45-117); ANION GAP 12 MMOL/L (8-16); BILIRUBIN,TOTAL 1.9 mg/dl (0.2-1); CALCIUM 8.9 mg/dl (8.5-10); CHLORIDE 104 mmol/L (98-107); CO2 24 mmol/L (21-32); CREATININE 1.5 mg/dl (0.55-1.3); GLUCOSE,RANDOM 133 mg/dl (74-106); LDH 370 U/L (84-246); MAGNESIUM 1.6 mg/dL (1.8-2.4); PHOSPHOROUS 3.3 mg/dl (2.5-4.9); SGOT/AST 41 U/L (15-37); SGPT/ALT 28 U/L (13-61); SODIUM 140 mmol/L (136-145); TOT PROT 6.9 g/dl (6.4-8.2)
[2021-01-13] MEDS ORDERED: ACETAMINOPHEN 1000 MG/100 ML VIAL (NON FORMULARY) IVPB ONE (19:35)
[2021-01-13 19:36] LABS: INR 3.4 (0.82-1.09); PROTHROMBIN TIME (PATIENT) 35.1 SEC (10.2-13.0)
[2021-01-13] MEDS ORDERED: ACETAMINOPHEN INJECTION 100 ML IVPB ONE (19:42)
[2021-01-13 20:17] LABS: VENOUS BASE EXCESS -3.2 mmol/L (-2-2); VENOUS O2 SATURATION 89.1 % (70-80); VENOUS PCO2 41.5 mmHg (38-52); VENOUS PH 7.347 (7.310-7.410)
[2021-01-13 20:28] LABS: EPITHELIAL CELLS FEW /hpf
[2021-01-13 20:28] LABS: PLATELET ESTIMATE ADEQUATE
[2021-01-13] MEDS ORDERED: CEFTRIAXONE 1,000 MG in DEXTROSE 5%-WATER - 50 ML IVPB ONE (20:34)
[2021-01-13] MEDS ORDERED: cefTRIAXone SODIUM 1 GM VIAL ONE (20:51)
[2021-01-13] MEDS ORDERED: AZITHROMYCIN IVPB 500 MG in DEXTROSE 5%-WATER - 250 ML IVPB ONE (21:10)
[2021-01-13 21:19] LABS: LACTIC ACID 3.2 mmol/L (0.4-2.0)
[2021-01-13] MEDS ORDERED: AZITHROMYCIN 500 MG VIAL IVPB ONE (21:36)
[2021-01-13] MEDS ORDERED: SODIUM CHLORIDE 1,000 ML IV ONE (21:43)
[2021-01-13] MEDS ORDERED: SODIUM CHLORIDE 0.9% 500 ML INFUS.BAG IV ONE (23:14)
[2021-01-14] MEDS ORDERED: SODIUM CHLORIDE 500 ML IV STA ×2 (00:49→08:29)
[2021-01-14] MEDS ORDERED: ACETAMINOPHEN 325 MG TABLET (FP) PO PRN (00:58)
[2021-01-14 01:47] VITALS: BMI 28.9
[2021-01-14 02:14] LABS: LACTIC ACID 2.3 mmol/L (0.4-2.0)
[2021-01-14] MEDS ORDERED: SODIUM CHLORIDE 1,000 ML IV SCH (03:00)
[2021-01-14] MEDS: BUDESONIDE/FORMETEROL FUMARATE 160/4.5 mcg INHALER IH SCH ×3 (05:00→21:22)
[2021-01-14] MEDS ORDERED: LEVOTHYROXINE NA 50 MCG TABLET (FP) PO SCH (07:00)
[2021-01-14] MEDS ORDERED: MAGNESIUM SULF 50% (8.12 MEQ/2 ML-1 GM VIAL) IVPB ONE (08:33)
[2021-01-14] MEDS ORDERED: ASPIRIN 325 MG TABLET PO ONE (08:40)
[2021-01-14] MEDS ORDERED: PIPERACILLIN/TAZOBACTAM 2.25 GM VIAL IVPB ONE ×3 (08:52→21:13)
[2021-01-14] MEDS ORDERED: DEXTROSE 5%-WATER - 50 ML IVPB ONE ×3 (08:53→21:13)
[2021-01-14] MEDS: PIPERACILLIN/TAZOB 2.25 GM 2.25 GM in DEXTROSE 5%-WATER - 50 ML IVPB SCH ×3 (08:57→21:22)
[2021-01-14] MEDS ORDERED: PIPERACILLIN/TAZOB 2.25 GM 2.25 GM in DEXTROSE 5%-WATER - 50 ML IVPB SCH (09:00)
[2021-01-14] MEDS ORDERED: ASPIRIN 325 MG ENTERIC COATED TABLET (FP) PO ONE (09:00)
[2021-01-14] MEDS ORDERED: MAGNESIUM SULFATE IN WATER 2 GM/50 ML IVPB IVPB ONE (09:00)
[2021-01-14] MEDS: VANCOMYCIN 1 GM in D5W (PRE-DOCKED) 1,000 MG/250 ML IVPB SCH ×2 (09:04→21:22)
[2021-01-14] MEDS: CHOLECALCIFEROL (VIT D3) 1,000 UNIT (25 MCG) TABLET PO SCH (09:12)
[2021-01-14] MEDS: CARVEDILOL 25 MG TABLET (FP) PO SCH ×2 (09:38→22:13)
[2021-01-14] MEDS ORDERED: PIPERACILLIN/TAZOB 3.375 GM 3.375 GM in DEXTROSE 5%-WATER - 50 ML IVPB SCH (10:00)
[2021-01-14] MEDS ORDERED: VANCOMYCIN 1 GM in D5W (PRE-DOCKED) 1,000 MG/250 ML IVPB SCH (10:00)
[2021-01-14] MEDS ORDERED: CARVEDILOL 25 MG TABLET (FP) PO SCH (10:00)
[2021-01-14] MEDS ORDERED: LEVOTHYROXINE NA 75 MCG TABLET (FP) PO SCH (12:21)
[2021-01-14] MEDS ORDERED: ALBUTEROL SO4 HFA INHALER IH PRN (16:12)
[2021-01-14] MEDS ORDERED: WARFARIN NA 1 MG TABLET PO SCH (18:00)
[2021-01-14] MEDS: ATORVASTATIN CA 40 MG TABLET (FP) PO SCH (21:22)
[2021-01-15] MEDS ORDERED: DEXTROSE 5%-WATER - 50 ML IVPB ONE (03:32)
[2021-01-15] MEDS ORDERED: PIPERACILLIN/TAZOBACTAM 2.25 GM VIAL IVPB ONE (03:32)
[2021-01-15] MEDS: PIPERACILLIN/TAZOB 2.25 GM 2.25 GM in DEXTROSE 5%-WATER - 50 ML IVPB SCH (03:42)
[2021-01-15] MEDS: LEVOTHYROXINE NA 75 MCG TABLET (FP) PO SCH (06:11)
[2021-01-15 08:04] LABS: BASO % 0.2 % (0-2.0); EOS % 0.7 % (0-4.5); HEMATOCRIT 30.5 % (32.4-45.2); HEMOGLOBIN 10.1 GM/dl (10.7-15.3); MCH 29.3 pg (25.7-33.7); MCHC 33.2 g/dl (32.0-36.0); MEAN CELL VOLUME 88.2 fl (80-96); MEAN PLT VOLUME 8.6 fl (7.5-11.1); MONO % 4.2 % (3.8-10.2); NEUT % 89.9 % (42.8-82.8); PLATELET COUNT 61 K/MM3 (134-434); RBC 3.46 M/mm3 (3.60-5.2); RDW 15.3 % (11.6-15.6); WHITE BLOOD COUNT 9.4 K/mm3 (4.0-10.8)
[2021-01-15 08:18] LABS: PROTHROMBIN TIME (PATIENT) 45.3 SEC (10.2-13.0)
[2021-01-15 08:25] LABS: INR 4.46 (0.82-1.09)
[2021-01-15 08:26] LABS: ALBUMIN 2.7 g/dl (3.4-5.0); CALCIUM 7.4 mg/dl (8.5-10); CREATININE 1.4 mg/dl (0.55-1.3); MAGNESIUM 2.3 mg/dL (1.8-2.4); PHOSPHOROUS 2.7 mg/dl (2.5-4.9); TOT PROT 4.8 g/dl (6.4-8.2)
[2021-01-15] MEDS: CARVEDILOL 25 MG TABLET (FP) PO SCH ×2 (09:28→22:47)
[2021-01-15] MEDS: CHOLECALCIFEROL (VIT D3) 1,000 UNIT (25 MCG) TABLET PO SCH (09:30)
[2021-01-15] MEDS: BUDESONIDE/FORMETEROL FUMARATE 160/4.5 mcg INHALER IH SCH ×2 (09:31→22:47)
[2021-01-15 10:44] LABS: N-TERMINAL BNP 13592.8 pg/ml (5-450)
[2021-01-15] MEDS ORDERED: PIPERACILLIN/TAZOB 2.25 GM 2.25 GM in DEXTROSE 5%-WATER - 50 ML IVPB SCH (11:45)
[2021-01-15] MEDS ORDERED: VANCOMYCIN 1 GM in D5W (PRE-DOCKED) 1,000 MG/250 ML IVPB SCH (12:00)
[2021-01-15] MEDS: CEFAZOLIN 1 GM/D5W 1 GM/50 ML BAG IVPB SCH (18:43)
[2021-01-15] MEDS: ATORVASTATIN CA 40 MG TABLET (FP) PO SCH (22:47)
[2021-01-15 22:55] LABS: EPITHELIAL CELLS FEW /hpf
[2021-01-16] MEDS: CEFAZOLIN 1 GM/D5W 1 GM/50 ML BAG IVPB SCH ×3 (01:51→17:40)
[2021-01-16] MEDS: LEVOTHYROXINE NA 75 MCG TABLET (FP) PO SCH (06:04)
[2021-01-16 08:02] LABS: BASO % 0.3 % (0-2.0); EOS % 1.1 % (0-4.5); HEMATOCRIT 31.4 % (32.4-45.2); HEMOGLOBIN 10.4 GM/dl (10.7-15.3); LYMPH % 6.3 % (8-40); MCH 29.2 pg (25.7-33.7); MCHC 33.1 g/dl (32.0-36.0); MEAN CELL VOLUME 88.1 fl (80-96); MEAN PLT VOLUME 9.2 fl (7.5-11.1); MONO % 4.6 % (3.8-10.2); NEUT % 87.7 % (42.8-82.8); PLATELET COUNT 88 K/MM3 (134-434); RBC 3.57 M/mm3 (3.60-5.2); RDW 15.3 % (11.6-15.6); WHITE BLOOD COUNT 7.9 K/mm3 (4.0-10.8)
[2021-01-16 08:12] LABS: INR 3.55 (0.82-1.09); PROTHROMBIN TIME (PATIENT) 36.6 SEC (10.2-13.0)
[2021-01-16 08:28] LABS: ALBUMIN 2.8 g/dl (3.4-5.0); BILIRUBIN,TOTAL 0.9 mg/dl (0.2-1); CALCIUM 7.6 mg/dl (8.5-10); CREATININE 1.2 mg/dl (0.55-1.3); MAGNESIUM 2.2 mg/dL (1.8-2.4); TOT PROT 5.1 g/dl (6.4-8.2)
[2021-01-16] MEDS: CHOLECALCIFEROL (VIT D3) 1,000 UNIT (25 MCG) TABLET PO SCH (09:32)
[2021-01-16] MEDS: CARVEDILOL 25 MG TABLET (FP) PO SCH ×2 (09:32→21:40)
[2021-01-16] MEDS: BUDESONIDE/FORMETEROL FUMARATE 160/4.5 mcg INHALER IH SCH ×2 (09:33→21:41)
[2021-01-16] MEDS ORDERED: POTASSIUM CHLORIDE TABS 20 MEQ TABLET.ER (FP) PO ONE (14:00)
[2021-01-16] MEDS: LOSARTAN POTASSIUM 50 MG TABLET PO SCH (14:27)
[2021-01-16] MEDS: ATORVASTATIN CA 40 MG TABLET (FP) PO SCH (21:40)
[2021-01-17] MEDS: CEFAZOLIN 1 GM/D5W 1 GM/50 ML BAG IVPB SCH ×3 (01:43→17:57)
[2021-01-17] MEDS: LEVOTHYROXINE NA 75 MCG TABLET (FP) PO SCH (06:14)
[2021-01-17 07:55] LABS: BASO % 0.5 % (0-2.0); EOS % 1.7 % (0-4.5); HEMATOCRIT 32.5 % (32.4-45.2); HEMOGLOBIN 10.6 GM/dl (10.7-15.3); LYMPH % 12.3 % (8-40); MCH 28.5 pg (25.7-33.7); MCHC 32.6 g/dl (32.0-36.0); MEAN CELL VOLUME 87.5 fl (80-96); MEAN PLT VOLUME 9.3 fl (7.5-11.1); MONO % 6.5 % (3.8-10.2); PLATELET COUNT 77 K/MM3 (134-434); RBC 3.71 M/mm3 (3.60-5.2); RDW 15.2 % (11.6-15.6); WHITE BLOOD COUNT 4.6 K/mm3 (4.0-10.8)
[2021-01-17 08:04] LABS: ALBUMIN 2.8 g/dl (3.4-5.0); BILIRUBIN,TOTAL 0.8 mg/dl (0.2-1); MAGNESIUM 2.1 mg/dL (1.8-2.4); TOT PROT 5.2 g/dl (6.4-8.2)
[2021-01-17] MEDS: CHOLECALCIFEROL (VIT D3) 1,000 UNIT (25 MCG) TABLET PO SCH (09:47)
[2021-01-17] MEDS: LOSARTAN POTASSIUM 50 MG TABLET PO SCH (09:47)
[2021-01-17] MEDS: LACTOBACILLUS ACIDOPHILUS 1 TABLET PO SCH (09:47)
[2021-01-17] MEDS: CARVEDILOL 25 MG TABLET (FP) PO SCH ×2 (09:47→21:16)
[2021-01-17] MEDS: BUDESONIDE/FORMETEROL FUMARATE 160/4.5 mcg INHALER IH SCH ×2 (09:48→21:16)
[2021-01-17 10:44] LABS: INR 2.95 (0.82-1.09); PROTHROMBIN TIME (PATIENT) 30.8 SEC (10.2-13.0)
[2021-01-17] MEDS ORDERED: ALPRAZolam 1 MG TABLET PO PRN (14:21)
[2021-01-17] MEDS: ATORVASTATIN CA 40 MG TABLET (FP) PO SCH (21:15)
[2021-01-18] MEDS: CEFAZOLIN 1 GM/D5W 1 GM/50 ML BAG IVPB SCH ×3 (01:17→17:48)
[2021-01-18] MEDS: LEVOTHYROXINE NA 75 MCG TABLET (FP) PO SCH (06:31)
[2021-01-18 08:10] LABS: HEMATOCRIT 32.2 % (32.4-45.2); HEMOGLOBIN 10.3 GM/dl (10.7-15.3); MCH 28.1 pg (25.7-33.7); MCHC 31.9 g/dl (32.0-36.0); MEAN CELL VOLUME 88.1 fl (80-96); PLATELET COUNT 92 K/MM3 (134-434); RBC 3.65 M/mm3 (3.60-5.2); WHITE BLOOD COUNT 4.8 K/mm3 (4.0-10.8)
[2021-01-18 08:25] LABS: ALBUMIN 2.8 g/dl (3.4-5.0); BILIRUBIN,TOTAL 0.8 mg/dl (0.2-1); CALCIUM 8.2 mg/dl (8.5-10); CREATININE 0.9 mg/dl (0.55-1.3); TOT PROT 5.2 g/dl (6.4-8.2)
[2021-01-18 08:31] LABS: INR 2.54 (0.82-1.09); PROTHROMBIN TIME (PATIENT) 26.8 SEC (10.2-13.0)
[2021-01-18] MEDS: BUDESONIDE/FORMETEROL FUMARATE 160/4.5 mcg INHALER IH SCH ×2 (09:13→11:02)
[2021-01-18] MEDS: CHOLECALCIFEROL (VIT D3) 1,000 UNIT (25 MCG) TABLET PO SCH (11:01)
[2021-01-18] MEDS: LOSARTAN POTASSIUM 50 MG TABLET PO SCH (11:01)
[2021-01-18] MEDS: CARVEDILOL 25 MG TABLET (FP) PO SCH ×2 (11:01→21:13)
[2021-01-18] MEDS: LACTOBACILLUS ACIDOPHILUS 1 TABLET PO SCH (11:01)
[2021-01-18] MEDS: WARFARIN NA 2 MG TABLET PO SCH (17:48)
[2021-01-18] MEDS: ATORVASTATIN CA 40 MG TABLET (FP) PO SCH (21:13)
[2021-01-19] MEDS: CEFAZOLIN 1 GM/D5W 1 GM/50 ML BAG IVPB SCH ×3 (02:35→17:48)
[2021-01-19] MEDS: LEVOTHYROXINE NA 75 MCG TABLET (FP) PO SCH (06:18)
[2021-01-19 08:30] LABS: INR 1.75 (0.82-1.09); PROTHROMBIN TIME (PATIENT) 18.9 SEC (10.2-13.0)
[2021-01-19 08:33] LABS: BASO % 0.3 % (0-2.0); EOS % 1.3 % (0-4.5); HEMATOCRIT 31.9 % (32.4-45.2); HEMOGLOBIN 10.5 GM/dl (10.7-15.3); LYMPH % 12.9 % (8-40); MCH 28.9 pg (25.7-33.7); MEAN CELL VOLUME 87.4 fl (80-96); MEAN PLT VOLUME 9.7 fl (7.5-11.1); NEUT % 77.5 % (42.8-82.8); PLATELET COUNT 125 K/MM3 (134-434); RBC 3.65 M/mm3 (3.60-5.2); RDW 14.9 % (11.6-15.6); WHITE BLOOD COUNT 5.8 K/mm3 (4.0-10.8)
[2021-01-19 08:48] LABS: ALBUMIN 2.8 g/dl (3.4-5.0); BILIRUBIN,TOTAL 0.8 mg/dl (0.2-1); CALCIUM 8.3 mg/dl (8.5-10); MAGNESIUM 1.6 mg/dL (1.8-2.4); TOT PROT 5.1 g/dl (6.4-8.2)
[2021-01-19] MEDS: CARVEDILOL 25 MG TABLET (FP) PO SCH ×2 (09:44→21:06)
[2021-01-19] MEDS: LACTOBACILLUS ACIDOPHILUS 1 TABLET PO SCH (09:44)
[2021-01-19] MEDS: LOSARTAN POTASSIUM 50 MG TABLET PO SCH (09:44)
[2021-01-19] MEDS: BUDESONIDE/FORMETEROL FUMARATE 160/4.5 mcg INHALER IH SCH ×2 (09:44→21:06)
[2021-01-19] MEDS: CHOLECALCIFEROL (VIT D3) 1,000 UNIT (25 MCG) TABLET PO SCH (09:45)
[2021-01-19] MEDS: WARFARIN NA 2 MG TABLET PO SCH (17:48)
[2021-01-19] MEDS: MAGNESIUM OXIDE 400 MG TABLET (FP) PO SCH (21:06)
[2021-01-19] MEDS: ATORVASTATIN CA 40 MG TABLET (FP) PO SCH (21:06)
[2021-01-20] MEDS: CEFAZOLIN 1 GM/D5W 1 GM/50 ML BAG IVPB SCH ×3 (02:06→17:37)
[2021-01-20] MEDS: LEVOTHYROXINE NA 75 MCG TABLET (FP) PO SCH (06:31)
[2021-01-20] MEDS: CARVEDILOL 25 MG TABLET (FP) PO SCH (09:29)
[2021-01-20] MEDS: BUDESONIDE/FORMETEROL FUMARATE 160/4.5 mcg INHALER IH SCH (09:29)
[2021-01-20] MEDS: LACTOBACILLUS ACIDOPHILUS 1 TABLET PO SCH (09:29)
[2021-01-20] MEDS: CHOLECALCIFEROL (VIT D3) 1,000 UNIT (25 MCG) TABLET PO SCH (09:29)
[2021-01-20] MEDS: MAGNESIUM OXIDE 400 MG TABLET (FP) PO SCH (09:29)
[2021-01-20] MEDS: LOSARTAN POTASSIUM 50 MG TABLET PO SCH (09:29)
[2021-01-20 12:50] LABS: INR 1.84 (0.83-1.09); PROTHROMBIN TIME (PATIENT) 22.2 SEC (9.7-13.0)
[2021-01-20 14:04] VITALS: BP 150/71; PULSE 120; TEMP 98.6
[2021-01-20] MEDS: WARFARIN NA 2 MG TABLET PO SCH (17:37)
== END 2021-01-20 18:30 | disposition home or self-care (01) | DRG 872 ==
LOC: FER 18:30 → FM/S 21:38
PROVIDERS: ATTEND Nurse Practitioner Acute Care
PROC: 02HV33Z Insertion of Infusion Device into Superior Vena Cava, Percutaneous Approach (ICD-10-PCS; principal; 2021-01-20)
PROC: B548ZZA Ultrasonography of Superior Vena Cava, Guidance (ICD-10-PCS; 2021-01-20)
DX: A41.02 Sepsis due to Methicillin resistant Staphylococcus aureus (principal); N39.0 Urinary tract infection, site not specified; I24.8 Other forms of acute ischemic heart disease; E87.2 Acidosis; J98.11 Atelectasis; I48.91 Unspecified atrial fibrillation; R65.20 Severe sepsis without septic shock; E83.42 Hypomagnesemia; E87.6 Hypokalemia; I45.10 Unspecified right bundle-branch block; I10 Essential (primary) hypertension; J44.9 Chronic obstructive pulmonary disease, unspecified; E03.9 Hypothyroidism, unspecified; E78.5 Hyperlipidemia, unspecified; B96.20 Unspecified Escherichia coli [E. coli] as the cause of diseases classified elsewhere; Z79.01 Long term (current) use of anticoagulants; R74.01 Elevation of levels of liver transaminase levels; Z95.2 Presence of prosthetic heart valve
CPT/HCPCS: 36415; 36569; 71045-TC-FY; 77001-TC-FY; 80053; 81003; 81015; 82248; 82550; 82728; 82803; 83605; 83615; 83735; 83880; 84100; 84443; 84484; 85025; 85610; 85730; 86850; 86900; 86901; 87040; 87086; 87186; 93005; 93010; 93306-TC; 97116-GP; 97162-GP; 99285-25; C1751; C9803; J0131; U0003; U0005

== ENCOUNTER 2021-07-11 11:07 | Inpatient (IN) | payer OTHER ==
[2021-07-11 11:13] VITALS: BMI 28.3
[2021-07-11 12:19] LABS: INR 2.16 (0.82-1.09)
[2021-07-11 12:24] LABS: ALBUMIN 3.7 g/dl (3.4-5.0); BILIRUBIN,TOTAL 1.2 mg/dl (0.2-1); CALCIUM 8.4 mg/dl (8.5-10); CREATININE 1.1 mg/dl (0.55-1.3); TOT PROT 6.7 g/dl (6.4-8.2)
[2021-07-11 12:55] LABS: BASO % 1.1 % (0-2.0); EOS % 1.1 % (0-4.5); HEMATOCRIT 25.2 % (32.4-45.2); LYMPH % 8.3 % (8-40); MCH 20.6 pg (25.7-33.7); MCHC 29.5 g/dl (32.0-36.0); MEAN CELL VOLUME 69.7 fl (80-96); MEAN PLT VOLUME 8.3 fl (7.5-11.1); MONO % 2.8 % (3.8-10.2); NEUT % 86.7 % (42.8-82.8); PLATELET COUNT 248 10^3/uL (134-434); RBC 3.61 M/mm3 (3.60-5.2); RDW 17.4 % (11.6-15.6); WHITE BLOOD COUNT 7.1 K/mm3 (4.0-10.8)
[2021-07-11 13:03] LABS: HEMOGLOBIN 7.4 GM/dl (10.7-15.3)
[2021-07-11 13:11] LABS: N-TERMINAL BNP 3371.6 pg/ml (5-450)
[2021-07-11] MEDS ORDERED: ALBUTEROL SO4 HFA INHALER IH PRN (15:32)
[2021-07-11] MEDS ORDERED: FUROSEMIDE 40 MG/4 ML INJECTABLE VIAL IVPUSH ONE (16:20)
[2021-07-11] MEDS ORDERED: FUROSEMIDE 40 MG/4 ML INJECTABLE VIAL ONE (16:41)
[2021-07-11] MEDS: CARVEDILOL 25 MG TABLET (FP) PO SCH (17:01)
[2021-07-11 18:42] LABS: HEMATOCRIT 22.9 % (32.4-45.2); MCH 20.7 pg (25.7-33.7); MCHC 29.7 g/dl (32.0-36.0); MEAN CELL VOLUME 69.7 fl (80-96); MEAN PLT VOLUME 7.7 fl (7.5-11.1); PLATELET COUNT 212 10^3/uL (134-434); RBC 3.28 M/mm3 (3.60-5.2); RDW 17.3 % (11.6-15.6); WHITE BLOOD COUNT 5.5 K/mm3 (4.0-10.8)
[2021-07-11 18:48] LABS: HEMOGLOBIN 6.8 GM/dl (10.7-15.3)
[2021-07-11] MEDS: WARFARIN NA 2 MG TABLET PO SCH (19:04)
[2021-07-11 20:24] LABS: RETICULOCYTES 1.49 % (0.5-1.5)
[2021-07-12] MEDS: ATORVASTATIN CA 40 MG TABLET (FP) PO SCH ×2 (07:12→21:29)
[2021-07-12] MEDS: BUDESONIDE/FORMETEROL FUMARATE 160/4.5 mcg INHALER IH SCH ×3 (07:13→21:28)
[2021-07-12 09:32] LABS: BASO % 0.5 % (0-2.0); EOS % 1.7 % (0-4.5); HEMATOCRIT 28.8 % (32.4-45.2); HEMOGLOBIN 9.4 GM/dL (10.7-15.3); LYMPH % 8.4 % (8-40); MCH 22.5 pg (25.7-33.7); MCHC 32.5 g/dl (32.0-36.0); MEAN CELL VOLUME 69.1 fl (80-96); MEAN PLT VOLUME 7.7 fl (7.5-11.1); NEUT % 84.4 % (42.8-82.8); PLATELET COUNT 237 10^3/uL (134-434); RBC 4.16 M/mm3 (3.60-5.2); WHITE BLOOD COUNT 7.7 K/mm3 (4.0-10.0)
[2021-07-12] MEDS: LEVOTHYROXINE NA 75 MCG TABLET (FP) PO SCH (10:11)
[2021-07-12] MEDS: FUROSEMIDE 40 MG/4 ML INJECTABLE VIAL IVPUSH SCH (10:12)
[2021-07-12] MEDS: CARVEDILOL 25 MG TABLET (FP) PO SCH ×2 (10:12→21:29)
[2021-07-12] MEDS: LOSARTAN POTASSIUM 50 MG TABLET PO SCH (10:12)
[2021-07-12 10:31] LABS: ALBUMIN 3.3 g/dl (3.4-5.0); BILIRUBIN,TOTAL 1.8 mg/dL (0.2-1); BLOOD UREA NITROGEN 22.6 mg/dL (7-18); CALCIUM 9.2 mg/dL (8.5-10.1); CREATININE 1.2 mg/dL (0.55-1.3); MAGNESIUM 1.9 mg/dL (1.8-2.4)
[2021-07-12] MEDS ORDERED: IRON SUCROSE INJECTION 200 MG in SODIUM CHLORIDE 90 ML IVPB ONE (14:04)
[2021-07-12 18:01] LABS: INR 1.8 (0.83-1.09); PROTHROMBIN TIME (PATIENT) 21.9 SEC (9.7-13.0)
[2021-07-12] MEDS: WARFARIN NA 2 MG TABLET PO SCH (19:46)
[2021-07-13] MEDS: LEVOTHYROXINE NA 75 MCG TABLET (FP) PO SCH (06:09)
[2021-07-13 08:17] LABS: BASO % 0.7 % (0-2.0); EOS % 1.3 % (0-4.5); HEMATOCRIT 24.6 % (32.4-45.2); HEMOGLOBIN 7.8 GM/dL (10.7-15.3); LYMPH % 14.2 % (8-40); MCH 22.3 pg (25.7-33.7); MCHC 31.9 g/dl (32.0-36.0); MEAN PLT VOLUME 8.3 fl (7.5-11.1); MONO % 6.8 % (3.8-10.2); PLATELET COUNT 197 10^3/uL (134-434); RBC 3.51 M/mm3 (3.60-5.2); RDW 21.7 % (11.6-15.6); WHITE BLOOD COUNT 4.8 K/mm3 (4.0-10.0)
[2021-07-13 08:21] LABS: INR 2.14 (0.83-1.09); PROTHROMBIN TIME (PATIENT) 24.1 SEC (9.7-13.0)
[2021-07-13 08:38] LABS: ALBUMIN 2.8 g/dl (3.4-5.0); BLOOD UREA NITROGEN 28.5 mg/dL (7-18); CALCIUM 8.5 mg/dL (8.5-10.1)
[2021-07-13 08:39] LABS: MAGNESIUM 1.6 mg/dL (1.8-2.4)
[2021-07-13 08:43] LABS: CREATININE 1.2 mg/dL (0.55-1.3)
[2021-07-13 08:44] LABS: BILIRUBIN,TOTAL 1.2 mg/dL (0.2-1); TOT PROT 5.8 g/dl (6.4-8.2)
[2021-07-13] MEDS: CARVEDILOL 25 MG TABLET (FP) PO SCH ×2 (09:25→21:15)
[2021-07-13] MEDS: BUDESONIDE/FORMETEROL FUMARATE 160/4.5 mcg INHALER IH SCH ×2 (09:26→21:15)
[2021-07-13] MEDS: LOSARTAN POTASSIUM 50 MG TABLET PO SCH (09:26)
[2021-07-13] MEDS: FUROSEMIDE 40 MG/4 ML INJECTABLE VIAL IVPUSH SCH (09:26)
[2021-07-13] MEDS ORDERED: POTASSIUM CHLORIDE TABS 20 MEQ TABLET.ER (FP) PO ONE (10:20)
[2021-07-13] MEDS ORDERED: IRON SUCROSE INJECTION 200 MG in SODIUM CHLORIDE 90 ML IVPB ONE (10:22)
[2021-07-13] MEDS: MAGNESIUM 1GM/D5W 100ML - 100 ML IVPB IVPB SCH ×2 (10:43→11:25)
[2021-07-13] MEDS: ATORVASTATIN CA 40 MG TABLET (FP) PO SCH (21:15)
[2021-07-13 21:42] LABS: HEMATOCRIT 29.5 % (32.4-45.2); HEMOGLOBIN 9.4 GM/dL (10.7-15.3); MCH 23.6 pg (25.7-33.7); MCHC 31.9 g/dl (32.0-36.0); MEAN PLT VOLUME 8.4 fl (7.5-11.1); PLATELET COUNT 204 10^3/uL (134-434); RBC 3.99 M/mm3 (3.60-5.2); RDW 23.3 % (11.6-15.6); WHITE BLOOD COUNT 6.1 K/mm3 (4.0-10.0)
[2021-07-14] MEDS: LEVOTHYROXINE NA 75 MCG TABLET (FP) PO SCH (06:51)
[2021-07-14 07:59] LABS: BASO % 0.6 % (0-2.0); EOS % 1.8 % (0-4.5); HEMATOCRIT 27.4 % (32.4-45.2); HEMOGLOBIN 8.8 GM/dL (10.7-15.3); LYMPH % 13.4 % (8-40); MCH 23.3 pg (25.7-33.7); MEAN CELL VOLUME 72.9 fl (80-96); MEAN PLT VOLUME 8.4 fl (7.5-11.1); MONO % 7.7 % (3.8-10.2); NEUT % 76.5 % (42.8-82.8); PLATELET COUNT 200 10^3/uL (134-434); RBC 3.76 M/mm3 (3.60-5.2); WHITE BLOOD COUNT 5.3 K/mm3 (4.0-10.0)
[2021-07-14 08:00] LABS: INR 1.89 (0.83-1.09); PROTHROMBIN TIME (PATIENT) 21.3 SEC (9.7-13.0)
[2021-07-14 08:30] LABS: CALCIUM 8.4 mg/dL (8.5-10.1)
[2021-07-14 08:31] LABS: ALBUMIN 2.7 g/dl (3.4-5.0); BLOOD UREA NITROGEN 28.8 mg/dL (7-18)
[2021-07-14 08:34] LABS: CREATININE 1.1 mg/dL (0.55-1.3)
[2021-07-14 08:35] LABS: BILIRUBIN,TOTAL 1.1 mg/dL (0.2-1)
[2021-07-14 08:36] LABS: TOT PROT 5.8 g/dl (6.4-8.2)
[2021-07-14 08:43] LABS: MAGNESIUM 2.4 mg/dL (1.8-2.4)
[2021-07-14] MEDS: CARVEDILOL 25 MG TABLET (FP) PO SCH ×2 (09:38→21:30)
[2021-07-14] MEDS: FUROSEMIDE 40 MG/4 ML INJECTABLE VIAL IVPUSH SCH (09:38)
[2021-07-14] MEDS: LOSARTAN POTASSIUM 50 MG TABLET PO SCH (09:38)
[2021-07-14] MEDS: BUDESONIDE/FORMETEROL FUMARATE 160/4.5 mcg INHALER IH SCH ×2 (09:54→21:30)
[2021-07-14] MEDS: ATORVASTATIN CA 40 MG TABLET (FP) PO SCH (21:30)
[2021-07-15] MEDS: LEVOTHYROXINE NA 75 MCG TABLET (FP) PO SCH (06:16)
[2021-07-15 07:29] LABS: MCH 23.5 pg (25.7-33.7); MEAN CELL VOLUME 73.5 fl (80-96); MEAN PLT VOLUME 8.4 fl (7.5-11.1); PLATELET COUNT 196 10^3/uL (134-434); RBC 3.82 M/mm3 (3.60-5.2); RDW 23.7 % (11.6-15.6); WHITE BLOOD COUNT 5.8 K/mm3 (4.0-10.0)
[2021-07-15 07:42] LABS: ALBUMIN 3.1 g/dl (3.4-5.0); BLOOD UREA NITROGEN 33.9 mg/dL (7-18); CALCIUM 8.4 mg/dL (8.5-10.1)
[2021-07-15 07:45] LABS: CREATININE 1.2 mg/dL (0.55-1.3)
[2021-07-15 07:47] LABS: TOT PROT 6.2 g/dl (6.4-8.2)
[2021-07-15] MEDS: FUROSEMIDE 40 MG/4 ML INJECTABLE VIAL IVPUSH SCH (10:16)
[2021-07-15] MEDS: CARVEDILOL 25 MG TABLET (FP) PO SCH (10:16)
[2021-07-15] MEDS: LOSARTAN POTASSIUM 50 MG TABLET PO SCH (10:16)
[2021-07-15] MEDS: BUDESONIDE/FORMETEROL FUMARATE 160/4.5 mcg INHALER IH SCH (10:16)
[2021-07-15 18:43] VITALS: BP 126/64; PULSE 100; TEMP 98.3
== END 2021-07-15 21:22 | disposition short-term general hospital (02) | DRG 291 ==
LOC: FER 11:07 → J4W 07-12 05:30
PROC: 30233N1 Transfusion of Nonautologous Red Blood Cells into Peripheral Vein, Percutaneous Approach (ICD-10-PCS; principal; 2021-07-11)
DX: I11.0 Hypertensive heart disease with heart failure (principal); I50.33 Acute on chronic diastolic (congestive) heart failure; J44.9 Chronic obstructive pulmonary disease, unspecified; D50.9 Iron deficiency anemia, unspecified; I48.0 Paroxysmal atrial fibrillation; E78.5 Hyperlipidemia, unspecified; E03.9 Hypothyroidism, unspecified; E83.42 Hypomagnesemia; E87.6 Hypokalemia; R00.0 Tachycardia, unspecified
CPT/HCPCS: 36415; 36430; 71045-TC-FY; 80048; 80053; 81003; 81015; 82272; 82550; 82728; 83010; 83540; 83550; 83615; 83735; 83880; 84443; 84484; 85025; 85027; 85045; 85610; 86850; 86900; 86901; 86922; 87040; 93005; 97116-GP; 97161-GP; 99285-25; C9803; J1756; P9058; U0003; U0005